=== PATIENT | female | born 1965 | race Caucasian/White ===

== ENCOUNTER 2020-08-22 07:45 | Emergency (ER) | payer OTHER, SELFPAY ==
[2020-08-22 07:57] VITALS: BP 142/88; PULSE 98; RESP 18; TEMP 36.9; O2SAT 97; BMI 29.5
--- NOTE | 2020-08-22 07:59 | ED_ITS ---
HPI - Extremity Problem General Chief complaint: Extremity Injury, Upper Stated complaint: fell arm pain Time Seen by Provider: 08/22/20 07:57 Source: patient Mode of arrival: ambulatory Limitations: no limitations History of Present Illness HPI Narrative: 54 years old female fell on Sunday at school sustained right upper extremity injury. She is complaining of right forearm pain. Denies LOC, denies neck pain denies head injury, no chest or abdominal complaints. She is fully ambulatory to the emergency department Complaint: extremity pain Onset (ago): day(s) (4) Pain Consistency: constant Location: right and upper extremity Severity scale (1-10): 4 Quality: dull Radiation: none Relieving factors: nothing Exacerbating factors: range of motion Related Data Home Medications Medication Instructions Recorded Confirmed Fioricet 08/22/20 propranolol 08/22/20 Allergies Allergy/AdvReac Type Severity Reaction Status Date / Time Penicillins Allergy Intermediate RASH Unverified 07/29/20 17:33 penicillin V Allergy Unknown rash Unverified 09/18/19 00:00 Review of Systems Review of Systems: Yes all other systems are reviewed and are negative Cardiovascular: Cardiovascular: Denies chest pain Musculoskeletal: Musculoskeletal: Denies abnormal gait Neurologic: Reports system reviewed and no additional complaints, except as documented and Denies abnormal gait PMFSH Past Medical History Medical History Migraine Surgical History Hx of tonsillectomy Social History Social History Alcohol intake: never Smoking Status: Never smoker Use of substances other than those prescribed or required for medical reasons: No Advance Directives: No Advance Directives Information Provided: No Physical Exam Vital Signs: Vital Signs: Vital Signs Temp Pulse Resp BP Pulse Ox 08/22/20 08:06 98.5 F 98 18 142/88 H 97 08/22/20 07:57 98.5 F 98 18 142/88 H 97 Body Mass Index 29.5 Const: Other: the patient appear well she is not in acute distress HENMT: Other: head eyes nose mouth throat examination is without normal limit Neck: Other: neck is supple she has no cervical tenderness Chest: Other: lungs are clear during auscultation Resp: Effort & Inspection: normal respiratory effort Cardio: Other: regular rate and rhythm a GI: Other: abdomen is soft nontender no peritoneal signs Skin: Other: skin no rash no laceration Neuro: Other: she is awake alert oriented x3 her gait is normal Extrem: Other: examination shows a tenderness in the right mid forearm, there is no deformity, there is no hematoma, there is pain during pronation and supination of the right forearm. 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 COMPARISON: None TECHNIQUE: AP and lateral views of the right forearm were obtained. FINDINGS: The bones and soft tissues are normal. No fracture. Imaged portions of the elbow and wrist are unremarkable. IMPRESSION: No radiographic evidence of acute posttraumatic changes identified within the right forearm. Discharge Plan Discharge Clinical Impression: Contusion Qualifiers: Encounter type: initial encounter Contusion area: forearm Laterality: right Qualified Code(s): S50.11XA - Contusion of right forearm, initial encounter Patient Disposition: Home, Self-Care Instructions: Contusion in Adults (ED) Additional Instructions: please follow-up with your primary care physician the x-ray of the forearm was negative, use anti-inflammatory such as naproxen twice a day Prescriptions: No Action Fioricet RF: 0 propranolol RF: 0 Referrals: Roberto Chaudhary MD, DO [Primary Care Provider] - 2 days
[2020-08-22 08:06] VITALS: BP 142/88; PULSE 98; RESP 18; TEMP 36.9; O2SAT 97
[2020-08-22] MEDS: NaPROXEN 500 MG TABLET PO (08:49)
== END 2020-08-22 09:07 | disposition home or self-care (01) ==
PROVIDERS: Emergency Provider Emergency Medicine; PCP Internal Medicine
DX: S50.11XA Contusion of right forearm, initial encounter (principal); W01.0XXA Fall on same level from slipping, tripping and stumbling without subsequent striking against object, initial encounter; Y93.9 Activity, unspecified; Y92.219 Unspecified school as the place of occurrence of the external cause; Y99.9 Unspecified external cause status
CPT/HCPCS: 73090; 99283; 99284

== ENCOUNTER 2020-10-19 16:07 | Outpatient (REF) | payer BC, SELFPAY | END 2020-10-19 16:08 | disposition home or self-care (01) | LOC: HO.LAB 16:07 | PROVIDERS: Visit Provider Internal Medicine | DX: Z20.828 Contact with and (suspected) exposure to other viral communicable diseases (principal) | CPT/HCPCS: C9803; U0003 ==

== ENCOUNTER 2020-11-13 08:27 | Outpatient (REF) | payer BC, SELFPAY ==
--- NOTE | 2020-11-13 08:31 | MM_ITS ---
EXAMINATION: MM SCREENING DIGITAL BREAST TOMOSYNTHESIS, BILATERAL CLINICAL INFORMATION: Screening. Asymptomatic. Family history breast cancer, aunt. No personal history breast surgery. The lifetime risk of breast cancer based on the Tyrer-Cuzick Model is 16%. COMPARISON: Mammography: 09/10/2019, 07/24/2018, 06/13/2017. TECHNIQUE: Digital breast tomosynthesis is performed in both the craniocaudal and mediolateral oblique views along with computer-aided detection (CAD). Synthesized 2D images are generated from the tomosynthesis. FINDINGS: There are scattered areas of fibroglandular density (ACR BI-RADS breast composition Category b). There is asymmetry of the breast, right larger, similar to prior studies. Retroareolar circumscribed nodule on right is decreased in size. There is no interval mass or architectural abnormality or abnormal calcifications. No significant changes. MM/MM tomosynthesis screening BI IMPRESSION: 1. No significant changes from prior studies. 2. Right circumscribed retroareolar nodule decreased in size. ASSESSMENT: BI-RADS 2: Benign RECOMMENDATION: Routine annual mammography screening. This patient's information was entered into a reminder system with a target due date for their next mammogram.
== END 2020-11-13 08:28 | disposition home or self-care (01) ==
LOC: HO.MAMMO 08:27
PROVIDERS: PCP Internal Medicine; Visit Provider Internal Medicine
DX: Z12.31 Encounter for screening mammogram for malignant neoplasm of breast (principal)
CPT/HCPCS: 77063; 77067

== ENCOUNTER 2021-02-05 06:49 | Outpatient (REF) | payer BC, SELFPAY ==
--- NOTE | ~2021-02-05 | XR_ITS ---
EXAMINATION: XR CHEST CLINICAL INFORMATION: Supraclavicular lymphadenopathy COMPARISON: Previous chest x-rays and chest CTA August 2019 TECHNIQUE: 2 views of the chest were obtained. FINDINGS: The cardiac and mediastinal contours are normal. The lungs are clear. There is no pleural effusion or pneumothorax. Bony structures are unremarkable. XR/XR chest 2V IMPRESSION: Unremarkable exam.
[2021-02-05 07:23] LABS: MANUAL DIFF FLAG NO
[2021-02-05 07:28] LABS: Basophils Absolute Auto 0.1 X10*3/uL (0.0-0.2); Basophils Percent Auto 0.7 % (0-2); Eosinophils Absolute Auto 0.5 X10*3/uL (0.0-0.4); Eosinophils Percent Auto 6.9 % (0-4); Hematocrit 41.7 % (37-47); Hemoglobin 13.3 g/dl (12.0-16.0); Imm Gran Abs Auto 0.02 X10*3/uL (0.00-0.03); Imm Gran Pct Auto 0.3 % (0.0-0.4); Lymphocytes Absolute Auto 3.6 X10*3/uL (1.2-4.9); Lymphocytes Percent Auto 52.1 % (20-40); Mean Corpuscular HGB Conc 31.9 g/dl (31.0-35.0); Mean Corpuscular Hemoglobin 28.2 pg (27.0-33.0); Mean Corpuscular Volume 88.5 fL (80-98); Mean Platelet Volume 9.7 fL (9.4-12.3); Monocytes Absolute Auto 0.5 X10*3/uL (0.1-1.2); Monocytes Percent Auto 6.7 % (2-11); Neutrophils Absolute Auto 2.3 X10*3/uL (2.0-8.3); Neutrophils Percent Auto 33.3 % (45-73); Platelet Count 252 X10*3/uL (160-400); Red Blood Count 4.71 X10*6/uL (4.20-5.50); Red Cell Distribution Width 12.5 % (11.0-16.0); White Blood Count 6.9 X10*3/uL (4.8-10.8)
[2021-02-05 07:56] LABS: Alanine Aminotransferase 12 U/L (0-31); Albumin Level 4.4 g/dL (3.5-5.0); Alkaline Phosphatase 103 U/L (39-117); Anion Gap 13 (12-20); Aspartate Amino Transferase 16 U/L (5-31); Bilirubin Total 0.5 mg/dL (0.0-1.0); Blood Urea Nitrogen 18 mg/dL (9-16); C Reactive Protein 0.05 mg/dL (< or = 0.50); Calcium 9.2 mg/dL (8.4-10.2); Carbon Dioxide 29 mmol/L (22-29); Chloride 106 mmol/L (96-108); Estimated Glomerular Filt Rate > 60; Glucose Random 104 mg/dL (60-115); Potassium 4.3 mmol/L (3.3-5.1); Sodium 144 mmol/L (135-145); Total Protein 7.2 g/dL (6.5-8.0)
[2021-02-05 08:58] LABS: Erythrocyte Sedimentation Rate 6 MM/HR (0-20)
== END 2021-02-05 06:50 | disposition home or self-care (01) ==
LOC: HO.LAB 06:49
PROVIDERS: PCP Internal Medicine; Visit Provider Internal Medicine
DX: R59.0 Localized enlarged lymph nodes (principal)
CPT/HCPCS: 36415; 71046; 80053; 85025; 85652; 86140

== ENCOUNTER 2021-03-16 13:31 | Outpatient (REF) | payer BC, SELFPAY ==
[2021-03-19 05:56] LABS: HPV mRNA E6/E7 rflx Not Detected (Not Detected)
== END 2021-03-16 13:32 | disposition home or self-care (01) ==
LOC: HO.LAB 13:31
PROVIDERS: PCP Internal Medicine; Visit Provider Obstetrics & Gynecology
DX: Z12.4 Encounter for screening for malignant neoplasm of cervix (principal); Z11.51 Encounter for screening for human papillomavirus (HPV); N95.0 Postmenopausal bleeding
CPT/HCPCS: 87624; 88142

== ENCOUNTER 2021-03-28 15:36 | Outpatient (REF) | payer BC, SELFPAY ==
--- NOTE | ~2021-03-28 | US_ITS ---
EXAMINATION: PELVIC ULTRASOUND CLINICAL INFORMATION: Postmenopausal bleeding COMPARISON: None TECHNIQUE: Transabdominal and transvaginal pelvic ultrasound was performed. Transvaginal exam was performed for better visualization of the uterus and ovaries. FINDINGS: The uterus is retroverted and measures 6.1 x 3.4 x 4.5 cm in dimension. There is a 0.7 x 0.5 x 0.9 cm hypoechoic lesion in the right anterior uterine body suggestive of a small fibroid. The endometrium is difficult to visualize. The endometrium appears thickened for postmenopausal patient measuring 9 mm. The ovaries are normal-appearing. The right ovary measures 2 x 0.8 x 1.4 cm and the left ovary measures 1.7 x 1.3 x 0.7 cm. There is no fluid in the pelvis. US/US transvaginal IMPRESSION: Thickened endometrium measuring 0.9 cm. Small subcentimeter uterine fibroid.
--- NOTE | ~2021-03-28 | US_ITS ---
EXAMINATION: PELVIC ULTRASOUND CLINICAL INFORMATION: Postmenopausal bleeding COMPARISON: None TECHNIQUE: Transabdominal and transvaginal pelvic ultrasound was performed. Transvaginal exam was performed for better visualization of the uterus and ovaries. FINDINGS: The uterus is retroverted and measures 6.1 x 3.4 x 4.5 cm in dimension. There is a 0.7 x 0.5 x 0.9 cm hypoechoic lesion in the right anterior uterine body suggestive of a small fibroid. The endometrium is difficult to visualize. The endometrium appears thickened for postmenopausal patient measuring 9 mm. The ovaries are normal-appearing. The right ovary measures 2 x 0.8 x 1.4 cm and the left ovary measures 1.7 x 1.3 x 0.7 cm. There is no fluid in the pelvis. US/US pelvic complete IMPRESSION: Thickened endometrium measuring 0.9 cm. Small subcentimeter uterine fibroid.
== END 2021-03-28 15:37 | disposition home or self-care (01) ==
LOC: HO.US 15:36
PROVIDERS: Visit Provider Obstetrics & Gynecology
DX: N95.0 Postmenopausal bleeding (principal)
CPT/HCPCS: 76830; 76856

== ENCOUNTER → 2021-04-12 12:02 | Outpatient (BNVA) | payer BC, SELFPAY | PROVIDERS: PCP Internal Medicine; Visit Provider Obstetrics & Gynecology ==

== ENCOUNTER 2021-04-19 08:40 | Outpatient (REF) | payer BC, SELFPAY | END 2021-04-19 08:41 | disposition home or self-care (01) | LOC: HO.LAB 08:40 | PROVIDERS: PCP Internal Medicine; Visit Provider Obstetrics & Gynecology | DX: N95.0 Postmenopausal bleeding (principal) | CPT/HCPCS: 58100; 88305 ==

== ENCOUNTER → 2021-05-05 12:36 | Outpatient (BNVA) | payer BC, SELFPAY | PROVIDERS: PCP Internal Medicine; Visit Provider Obstetrics & Gynecology ==

== ENCOUNTER → 2021-05-06 08:51 | Outpatient (BNVA) | payer BC, SELFPAY | PROVIDERS: PCP Internal Medicine; Referring Provider Internal Medicine; Visit Provider Surgery ==

== ENCOUNTER 2021-05-12 13:04 | Outpatient (REF) | payer BC, SELFPAY ==
--- NOTE | ~2021-05-12 | US_ITS ---
EXAMINATION: US SOFT TISSUE NECK CLINICAL INFORMATION: Benign lipomatous neoplasm of skin and subcutaneous. COMPARISON: CTA of the chest August 2019 and chest x-ray January 2021 TECHNIQUE: Ultrasound of the right and left clavicle soft tissues is performed with high- frequency tiwari-scale imaging and color Doppler. FINDINGS: There is symmetric appearing increased hypoechoic soft tissue seen in the area of palpable abnormality over the clavicles. A discrete soft tissue mass is not appreciated. No fluid collection is seen. There are 3 lymph nodes seen adjacent to the left clavicle. These are normal in size and demonstrate normal ultrasound morphology and flow. This measures 0.8 x 0.3 x 0.9 cm, 0.7 x 0.6 x 1 cm and 0.5 x 0.5 x 0.5 cm. US/US soft tiss head and/or neck IMPRESSION: Increased hypoechoic soft tissue seen over both clavicles in the area of palpable abnormality. A discrete mass is not appreciated. There are small lymph nodes adjacent to the left clavicle.
== END 2021-05-12 13:05 | disposition home or self-care (01) ==
LOC: HO.HMGCX 13:04
PROVIDERS: PCP Internal Medicine; Visit Provider Surgery
DX: D17.1 Benign lipomatous neoplasm of skin and subcutaneous tissue of trunk (principal)
CPT/HCPCS: 76536

== ENCOUNTER 2021-06-17 12:55 | Outpatient (REF) | payer BC, SELFPAY ==
[2021-06-18 17:12] LABS: Mumps Virus IgG Antibody <9.00 AU/mL; Rubella IgM Antibody <20.00 AU/mL
[2021-06-20 03:38] LABS: HBS Num1 0.12 mIU/mL (0-7.99); ~Hepatitis B Surface Antibody NONREACTIVE (Nonreactive)
== END 2021-06-17 12:56 | disposition home or self-care (01) ==
LOC: HO.HMGCLDS 12:55
PROVIDERS: PCP Internal Medicine; Visit Provider Internal Medicine
DX: Z01.84 Encounter for antibody response examination (principal); Z28.3 Underimmunization status
CPT/HCPCS: 36415; 86706; 86735; 86762; 86765; 86787

== ENCOUNTER 2021-11-28 16:07 | Outpatient (REF) | payer BC, SELFPAY ==
--- NOTE | ~2021-11-28 | MM_ITS ---
EXAMINATION: MM SCREENING DIGITAL BREAST TOMOSYNTHESIS, BILATERAL CLINICAL INFORMATION: Screening. Asymptomatic. The lifetime risk of breast cancer based on the Tyrer-Cuzick Model is 11%. COMPARISON: Mammography: 11/13/2020, 09/10/2019, 07/24/2018 TECHNIQUE: Digital breast tomosynthesis is performed in both the craniocaudal and mediolateral oblique views along with computer-aided detection (CAD). Synthesized 2D images are generated from the tomosynthesis. FINDINGS: There are scattered areas of fibroglandular density (ACR BI-RADS breast composition Category b). Breast tissue composition borders on predominantly fatty. Background stromal and fibroglandular markings are stable. Small circumscribed right retroareolar nodule is stable to decreased. There is no significant mass or architectural abnormality or developing density. No abnormal calcifications. No axillary adenopathy. Skin contours are smooth. MM/MM tomosynthesis screening BI IMPRESSION: No mammographic evidence of malignancy. ASSESSMENT: BI-RADS 2: Benign RECOMMENDATION: Routine annual mammography screening. This patient's information was entered into a reminder system with a target due date for their next mammogram.
== END 2021-11-28 16:08 | disposition home or self-care (01) ==
LOC: HO.MAMMO 16:07
PROVIDERS: PCP Internal Medicine; Visit Provider Internal Medicine
DX: Z12.31 Encounter for screening mammogram for malignant neoplasm of breast (principal)
CPT/HCPCS: 77063; 77067

== ENCOUNTER 2022-12-05 15:40 | Outpatient (REF) | payer OTHER, SELFPAY ==
--- NOTE | ~2022-12-05 | MM_ITS ---
EXAMINATION: MM SCREENING DIGITAL BREAST TOMOSYNTHESIS, BILATERAL CLINICAL INFORMATION: Screening. Asymptomatic. The lifetime risk of breast cancer based on the Tyrer-Cuzick Model is 8.9%. COMPARISON: Mammography: November 28, 2021 and studies dating back to May 16, 2016 TECHNIQUE: Digital breast tomosynthesis is performed in both the craniocaudal and mediolateral oblique views along with computer-aided detection (CAD). Synthesized 2D images are generated from the tomosynthesis. FINDINGS: The breasts are almost entirely fatty (ACR BI-RADS breast composition Category a). There are no significant masses, abnormal calcifications, or other abnormalities. MM/MM tomosynthesis screening BI IMPRESSION: No significant changes from prior exam. ASSESSMENT: BI-RADS 1: Negative RECOMMENDATION: Routine annual mammography screening. This patient's information was entered into a reminder system with a target due date for their next mammogram.
== END 2022-12-05 15:41 | disposition home or self-care (01) ==
LOC: HO.MAMMO 15:40
PROVIDERS: PCP Internal Medicine; Visit Provider Internal Medicine
DX: Z12.31 Encounter for screening mammogram for malignant neoplasm of breast (principal)
CPT/HCPCS: 77063; 77067

== ENCOUNTER 2023-09-12 11:28 | Outpatient (REF) | payer OTHER, SELFPAY ==
--- NOTE | ~2023-09-12 | XR_ITS ---
EXAMINATION: XR CHEST CLINICAL INFORMATION: Cough COMPARISON: Chest radiograph from 08/22/2019 TECHNIQUE: 2 views of the chest were obtained. FINDINGS: Atelectatic changes along the right medial lung base. No pneumothorax. Trachea is midline. Cardiac mediastinal silhouette is not enlarged. No large pleural effusion. Osseous structures are intact. Soft tissues are unremarkable. XR/XR chest 2V IMPRESSION: Atelectatic changes along the right medial lung base.
[2023-09-12 13:10] LABS: MANUAL DIFF FLAG NO
[2023-09-12 13:21] LABS: Basophils Absolute Auto 0.1 X10*3/uL (0.0-0.2); Basophils Percent Auto 0.5 % (0-2); Eosinophils Absolute Auto 0.5 X10*3/uL (0.0-0.4); Hematocrit 41.8 % (37.0-47.0); Hemoglobin 13.8 g/dl (12.0-16.0); Imm Gran Abs Auto 0.04 X10*3/uL (0.00-0.03); Imm Gran Pct Auto 0.4 % (0.0-0.4); Lymphocytes Absolute Auto 4.3 X10*3/uL (1.2-4.9); Lymphocytes Percent Auto 47.6 % (20-40); Mean Corpuscular Hemoglobin 28.2 pg (27.0-33.0); Mean Corpuscular Volume 85.5 fL (80.0-98.0); Mean Platelet Volume 9.6 fL (9.4-12.3); Monocytes Absolute Auto 0.5 X10*3/uL (0.1-1.2); Monocytes Percent Auto 5.5 % (2-11); Neutrophils Absolute Auto 3.7 x10*3/uL (2.0-8.3); Platelet Count 269 X10*3/uL (160-400); Red Blood Count 4.89 X10*6/uL (4.20-5.50); Red Cell Distribution Width 12.8 % (11.0-16.0); White Blood Count 9.1 X10*3/uL (4.8-10.8)
[2023-09-12 13:38] LABS: Alanine Aminotransferase 12 U/L (0-31); Albumin Level 4.4 g/dL (3.5-5.0); Alkaline Phosphatase 90 U/L (39-117); Anion Gap 12 (12-20); Aspartate Amino Transferase 15 U/L (5-31); Bilirubin Total 0.4 mg/dL (0.0-1.0); Blood Urea Nitrogen 14 mg/dL (9-16); C Reactive Protein < 0.10 mg/dL (< or = 0.50); Calcium 9.6 mg/dL (8.4-10.2); Carbon Dioxide 27 mmol/L (22-29); Chloride 104 mmol/L (96-108); Estimated Glomerular Filt Rate > 60; Glucose Random 103 mg/dL (60-115); Potassium 3.9 mmol/L (3.3-5.1); Sodium 139 mmol/L (135-145); Total Protein 7.8 g/dL (6.5-8.0)
[2023-09-12 13:57] LABS: Erythrocyte Sedimentation Rate 7 MM/HR (0-20)
[2023-09-21 15:23] LABS: Pertussis Testing Negative
== END 2023-09-12 11:29 | disposition home or self-care (01) ==
LOC: HO.HMGCLDS 11:28
PROVIDERS: PCP Internal Medicine; Visit Provider Internal Medicine
DX: R05.2 Subacute cough (principal)
CPT/HCPCS: 36415; 71046; 80053; 85025; 85652; 86140

== ENCOUNTER 2023-11-19 13:59 | Outpatient (REF) | payer OTHER, SELFPAY ==
[2023-11-19 14:11] VITALS: PULSE 80; RESP 20; O2SAT 95
--- NOTE | 2023-11-19 15:33 | PFT_ITS ---
Indication: Cough Spirometry [FEV1 to FVC 69% pre bronchodilators and 76% post bronchodilator; FEV1 2.77 L which is 106% predicted; FVC 3.63 L which is 96% predicted. No significant response to bronchodilators noted. Maximum voluntary ventilation 88% predicted Lung Volumes [Total lung capacity 94% predicted] Diffusion Capacity [DLCO 105% predicted] Comparisons [none] Interpretation [There is a reversible obstructive ventilatory defect consistent with a diagnosis of hyper-reactive airways, likely asthma. No significant response to bronchodilators noted, although, there is significant small airways disease also consistent with a diagnosis of asthma. She has normal maximum voluntary ventilation. Lung volumes and diffusing capacity are both within normal limits.] MTDD
== END 2023-11-19 14:00 | disposition home or self-care (01) ==
LOC: HO.RESP 13:59
PROVIDERS: PCP Internal Medicine; Visit Provider Internal Medicine
DX: R06.2 Wheezing (principal)
CPT/HCPCS: 94640

== ENCOUNTER → 2023-11-19 15:33 | Outpatient (BNV) | payer OTHER, SELFPAY | PROVIDERS: PCP Internal Medicine; Visit Provider Hospitalist | DX: R05.2 Subacute cough (principal) | CPT/HCPCS: 94060; 94727; 94729 ==

== ENCOUNTER 2023-12-11 15:48 | Outpatient (REF) | payer OTHER, SELFPAY | END 2023-12-11 15:49 | disposition home or self-care (01) | LOC: HO.MAMMO 15:48 | PROVIDERS: PCP Internal Medicine; Visit Provider Internal Medicine | DX: Z12.31 Encounter for screening mammogram for malignant neoplasm of breast (principal) | CPT/HCPCS: 77063; 77067 ==

== ENCOUNTER → 2023-12-11 16:00 | Outpatient (BNV) | payer OTHER, SELFPAY | PROVIDERS: PCP Internal Medicine; Visit Provider Radiology Diagnostic Radiology | DX: Z12.31 Encounter for screening mammogram for malignant neoplasm of breast (principal) | CPT/HCPCS: 77063; 77067 ==

== ENCOUNTER 2024-06-14 09:46 | Outpatient (REF) | payer OTHER, SELFPAY ==
[2024-06-14 11:37] LABS: Blood Urea Nitrogen 16 mg/dL (9-16); Estimated Glomerular Filt Rate > 60
== END 2024-06-14 09:47 | disposition home or self-care (01) ==
LOC: HO.LAB 09:46
PROVIDERS: PCP Internal Medicine; Visit Provider Internal Medicine
DX: R59.0 Localized enlarged lymph nodes (principal)
CPT/HCPCS: 36415; 82565; 84520

== ENCOUNTER 2024-06-30 07:53 | Outpatient (REF) | payer OTHER, SELFPAY ==
--- NOTE | ~2024-06-30 | CT_ITS ---
EXAMINATION: CT CHEST WITH CONTRAST CLINICAL INFORMATION: Infraclavicular lymphadenopathy COMPARISON: 09/12/2023 chest radiograph, 08/22/2019 chest CTA TECHNIQUE: Multidetector volumetric CT imaging of the chest was obtained after the administration of 65 mL of Omnipaque 350 intravenous contrast without immediate adverse reactions. Axial MIP volume rendering provided. Sagittal and coronal reformatted images were obtained. This CT examination was performed using dose optimization techniques as appropriate, variously including the following: *Automated exposure control *Adjustment of mA and/or kV according to patient size (this includes techniques or standardized protocols for targeted exams where dose is matched to indication/reason for exam; i.e. 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 LUNGS: Trachea bronchi are patent. Mild centrilobular emphysema. Mild mosaic attenuation left lower lobe. Scattered mild atelectasis. No consolidations or groundglass opacities. Small left lower lobe granuloma, 4:35. No suspicious lung nodules. MEDIASTINUM/CHEST WALL: Partial visualization of left thyroid hypodensities. Calcification posterior to the tracheal bifurcation. No pathologic lymphadenopathy. Couple left subpectoral lymph nodes measuring 1.9 and 0.9 cm, coronal 5:42. 8 mm left infraclavicular lymph node, coronal 5:46. Asymmetry of the pectoralis minor muscles, left relatively smaller than right. HEART AND GREAT VESSELS: Heart is not enlarged. No pericardial effusion. Degree of coronary calcifications: Trace. Nonaneurysmal aorta. Nonenlarged pulmonary arteries. PLEURA: There is no pleural effusion. No pleural mass or thickening. AXILLA: Nonspecific lymph nodes. No lymphadenopathy. UPPER ABDOMEN: Diffuse hypodensity to the liver parenchyma. 5.8 cm left upper pole renal cyst. Too small to characterize probable right upper pole renal cyst. Diverticulosis. OSSEOUS STRUCTURES: Mild L1 compression deformity, seen on September [address]/CT chest w IV con IMPRESSION: Mild centrilobular emphysema and mild mosaic attenuation left lower lobe. No suspicious lung nodules. Incomplete evaluation of thyroid hypodensities. Thyroid ultrasound recommended. Left subpectoral and infraclavicular lymph nodes as described. Hepatic steatosis. Left upper pole renal cyst. Diverticulosis. Fleischner guidelines were followed. Electronically signed by: Guerda Garcia MD 07/22/2024 01:37 PM EDT
[2024-06-30] MEDS: iohexoL 350 MG/ML 100 ML INFUS..BTL 65 ML IV (08:44)
== END 2024-06-30 07:54 | disposition home or self-care (01) ==
LOC: HO.CT 07:53
PROVIDERS: PCP Internal Medicine; Visit Provider Internal Medicine
DX: R59.0 Localized enlarged lymph nodes (principal)
CPT/HCPCS: 71260; Q9967

== ENCOUNTER 2024-08-14 07:26 | Outpatient (REF) | payer BC, SELFPAY ==
--- NOTE | ~2024-08-14 | US_ITS ---
EXAMINATION: US THYROID CLINICAL INFORMATION: Thyroid cyst. COMPARISON: None available. TECHNIQUE: Linear transducer grayscale and color Doppler examination with attention to the region of the thyroid. FINDINGS: SIZE: Measurements of the thyroid lobes and nodules are given in sagittal, anteroposterior and transverse dimensions respectively. Right Thyroid Lobe: 4.8 x 1.4 x 1.4 cm, volume 4.9 mL. Parenchyma: The gland echotexture is homogeneous. Thyroid vascularity is normal. Left Thyroid Lobe: 5.3 x 1.5 x 1.7 cm, volume 7.0 mL. Parenchyma: The gland echotexture is homogeneous. Thyroid vascularity is increased. Isthmus: 0.4 cm in maximum AP dimension. Estimated total number of nodules greater than or equal to 1 cm: 1. Avionics Engineer nodules are described as follows: 1. Location: Left upper/mid pole. Size: 1.5 x 1.2 x 1.2 cm, volume 1.12 mL. Nodule characteristics: Composition: Mixed cystic and solid (1). Echogenicity: Cannot be determined (1). Shape: Taller than wide (3). Margins: Smooth (0). Echogenic Foci: None (0). ACR TI-RADS total points: 5 ACR TI-RADS category: 4 NODES: No lymphadenopathy is seen in the tissue surrounding the thyroid gland. US/US thyroid IMPRESSION: A 1.5 cm left TR 4 thyroid nodule meets criteria for biopsy. Fine-needle aspiration recommended. [facility]. [facility] staff will provide results to referring provider at this time. ACR TI-RADS RECOMMENDATION REFERENCE: Ultrasound-guided fine-needle aspiration, followup ultrasound, no further follow up. * TR1 (0 point) and TR2 (2 points): No FNA or follow up. * TR3 (3 points): FNA if more than or equal to 2.5 cm in maximum dimension, followup ultrasound in 1, 3 and 5 years if 1.5 to 2.4 cm in maximum dimension. * TR4 (4-6 points): FNA if more than or equal to 1.5 cm in maximum dimension, followup ultrasound in 1, 2, 3 and 5 years if 1 to 1.4 cm in maximum dimension. * TR5 (more than or equal to 7 points): FNA if more than or equal to 1 cm in maximum dimension, followup ultrasound every year for 5 years if 0.5 to 0.9 cm in maximum dimension. * TR3, TR4 or TR5 nodules that are below the size threshold for followup receive no follow up. Electronically signed by: Marla Eason MD 09/03/2024 09:24 AM EDT
== END 2024-08-14 07:27 | disposition home or self-care (01) ==
LOC: HO.US 07:26
PROVIDERS: PCP Internal Medicine; Visit Provider Internal Medicine
DX: E04.1 Nontoxic single thyroid nodule (principal)
CPT/HCPCS: 76536

== ENCOUNTER 2024-09-09 10:19 | Outpatient (REF) | payer BC, SELFPAY ==
[2024-09-09 10:46] LABS: MANUAL DIFF FLAG NO
[2024-09-09 11:21] LABS: Basophils Absolute Auto 0.1 X10*3/uL (0.0-0.2); Basophils Percent Auto 0.6 % (0-2); Eosinophils Absolute Auto 0.4 X10*3/uL (0.0-0.4); Eosinophils Percent Auto 4.8 % (0-4); Hematocrit 43.6 % (37.0-47.0); Hemoglobin 14.4 g/dl (12.0-16.0); Imm Gran Abs Auto 0.08 X10*3/uL (0.00-0.03); Lymphocytes Absolute Auto 4.3 X10*3/uL (1.2-4.9); Lymphocytes Percent Auto 53.5 % (20-40); Mean Corpuscular Hemoglobin 28.7 pg (27.0-33.0); Mean Corpuscular Volume 86.9 fL (80.0-98.0); Mean Platelet Volume 9.4 fL (9.4-12.3); Monocytes Absolute Auto 0.5 X10*3/uL (0.1-1.2); Monocytes Percent Auto 6.2 % (2-11); Neutrophils Absolute Auto 2.7 x10*3/uL (2.0-8.3); Neutrophils Percent Auto 33.9 % (45-73); Platelet Count 257 X10*3/uL (160-400); Red Blood Count 5.02 X10*6/uL (4.20-5.50); Red Cell Distribution Width 12.8 % (11.0-16.0); White Blood Count 7.9 X10*3/uL (4.8-10.8)
[2024-09-09 12:42] LABS: Alanine Aminotransferase 17 U/L (0-31); Albumin Level 4.3 g/dL (3.5-5.0); Alkaline Phosphatase 91 U/L (39-117); Anion Gap 13 (12-20); Aspartate Amino Transferase 24 U/L (5-31); Bilirubin Total 0.6 mg/dL (0.0-1.0); Blood Urea Nitrogen 13 mg/dL (9-16); Calcium 9.5 mg/dL (8.4-10.2); Carbon Dioxide 26 mmol/L (22-29); Chloride 107 mmol/L (96-108); Cholesterol 249 mg/dL (<200); Estimated Glomerular Filt Rate > 60; Glucose Fasting 98 mg/dL (60-99); HDL Cholesterol 65 mg/dL (>40); LDL Cholesterol Calculated 166 mg/dL (<100); Potassium 4.1 mmol/L (3.3-5.1); Sodium 142 mmol/L (135-145); Total Protein 7.4 g/dL (6.5-8.0); Triglycerides 92 mg/dL (<150)
[2024-09-09 13:09] LABS: Thyroid Stimulating Hormone 1.95 uIU/mL (0.32-4.0); Vitamin D 25-OH Total 32.3 ng/mL (>30)
== END 2024-09-09 10:20 | disposition home or self-care (01) ==
LOC: HO.LAB 10:19
PROVIDERS: PCP Internal Medicine; Visit Provider Internal Medicine
DX: Z00.00 Encounter for general adult medical examination without abnormal findings (principal)
CPT/HCPCS: 36415; 80053; 80061; 82306; 84443; 85025

== ENCOUNTER 2024-09-09 10:52 | Outpatient (AMB) | payer BC, SELFPAY ==
--- NOTE | 2024-09-09 10:53 | A.OFFVIS_ITS ---
Vital Signs 09/09/24 10:55 Height 5 ft 9 in Weight 214 lb 11.684 oz BMI 31.7 BP 128/82 Blood Pressure Location Lt brachial Position Sitting Pulse 76 Pulse Source Pulse Oximeter Intake Visit Reasons: Thyroid Nodule-conf Intake Note: Patient present today for Thyroid nodule follow up visit. Systems Requirements Planner Required: No Accompanied by: Self / Same As Patient Allergies Penicillins Allergy (Intermediate, Verified 09/09/24 10:57) RASH Medication List - Last Reconciled 09/09/24 by Heide Veliz MD No Known Home Meds HPI Comments Details: 58-year-old female coming in today for initial evaluation of solitary right-side d thyroid nodule. She had a CT chest in June 2024 which showed left-sided infraclavicular lymphadenopathy but also showed left-sided hypodensities in the thyroid. Hence ultrasound of the thyroid done. Ultrasound from August 2024 I reviewed the images myself which showed a solitary left upper/mid 1.5 cm thyroid nodule which is mixed cystic solid with mostly cystic component but taller than wide making it a TR 4 category nodule meeting criteria for FNA . Patient complains of heat intolerance, hot flashes. Feels tired. Has sleep apnea not on CPAP. Reports tiredness. Denies diarrhea or constipation, hair loss, palpitation, anxiety, weight changes, mood changes, low energy, changes in appearance of eyes or vision changes, tremors, increased diaphoresis or dry skin. ? Patient denies any pain on swallowing or voice changes or difficulty breathing. Sometimes has difficulty swallowing with big bites. Denies any fullness. Patient denies any history of childhood neck radiation. Denies having ever used lithium, amiodarone or biotin supplements. Patient denies any family history of thyroid cancer or thyroid disease. Review of systems Constitutional: no fevers, chills or weight loss HEENT: no changes in vision Cardiac: No chest pain, discomfort or palpitations. Pulmonary: No SOB GI:No abdominal pain, no nausea or vomiting, no anorexia, no blood in stool : no burning micturition, dysuria or increase in urinary frequency Physical exam General: sitting comfortably in no acute distress HEENT: normocephalic/atraumatic, moist oral mucosa Neck: supple, symmetrical, palpable 1 cm left-sided nodule , no dorsocervical or supraclavicular fat pads Cardiac: normal heart sounds Pulm: normal breath sounds B/L, no added breath sounds Abd: not distended, no tenderness Extremities: no edema, no signs of myxedema Neuro: AAO x3, Speech: normal, no facial droop, moving all 4 extremities Skin: no rash Laboratory Tests 12/14/18 08/22/19 07:40 17:07 TSH 3rd Generation 1.87 0.67 TSH from 09/09/2024 is pending US THYROID August 2024 CLINICAL INFORMATION: Thyroid cyst. COMPARISON: None available. TECHNIQUE: Linear transducer grayscale and color Doppler examination with attention to the region of the thyroid. FINDINGS: SIZE: Measurements of the thyroid lobes and nodules are given in sagittal, anteroposterior and transverse dimensions respectively. Right Thyroid Lobe: 4.8 x 1.4 x 1.4 cm, volume 4.9 mL. Parenchyma: The gland echotexture is homogeneous. Thyroid vascularity is normal. Left Thyroid Lobe: 5.3 x 1.5 x 1.7 cm, volume 7.0 mL. Parenchyma: The gland echotexture is homogeneous. Thyroid vascularity is increased. Isthmus: 0.4 cm in maximum AP dimension. Estimated total number of nodules greater than or equal to 1 cm: 1. Highway Maintenance Supervisor nodules are described as follows: 1. Location: Left upper/mid pole. Size: 1.5 x 1.2 x 1.2 cm, volume 1.12 mL. Nodule characteristics: Composition: Mixed cystic and solid (1). Echogenicity: Cannot be determined (1). Shape: Taller than wide (3). Margins: Smooth (0). Echogenic Foci: None (0). ACR TI-RADS total points: 5 ACR TI-RADS category: 4 NODES: No lymphadenopathy is seen in the tissue surrounding the thyroid gland. US/US thyroid IMPRESSION: A 1.5 cm left TR 4 thyroid nodule meets criteria for biopsy. Fine-needle aspiration recommended. [facility] Medical History (Updated 09/09/24 @ 11:34 by Heide Veliz MD) Solitary thyroid nodule YASMANY (obstructive sleep apnea) Obesity (BMI 30-39.9) Sleep apnea Migraine Surgical History Hx of tonsillectomy Family History Mother Colon cancer Father Colon cancer Social History Alcohol intake: current Alcohol intake frequency: holidays/special occasions only Patient Tobacco Use Status: Never used Tobacco Female Reproductive History Menstrual Age of Menarche: 14 Physical Exam Vital Signs: Last Vital Signs Pulse 76 09/09/24 10:55 BP 128/82 09/09/24 10:55 BMI result Body Mass Index 31.7 Assessment & Plan Assessment & Plan (1) Solitary thyroid nodule: Code(s): E04.1 - Nontoxic single thyroid nodule Category: Medical Plan: Patient with no family history of thyroid cancer with no personal history of head or neck radiation, who underwent thyroid ultrasound Ultrasound from August 2024 I reviewed the images myself which showed a solitary left upper/mid 1.5 cm thyroid nodule which is mixed cystic solid with mostly cystic component but taller than wide making it a TR 4 category nodule meeting criteria for FNA . I explained that it is common to have thyroid nodules. About 95% of the time these nodules are benign. However if the nodule is > 1 cm in size or suspicious on ultrasound then a fine need aspiration biopsy is recommended. We discussed that a FNAB involves 4-5 passes with a small gauge needle and material obtained is sent off for cytology.If the cytopathology is benign then the nodule will be followed annually with repeat ultrasounds. However if it is suspicious or malignant, we will need to discuss further management. Indeterminate cytology can be further investigated with repeat FNA, genetic testing or empiric lobectomy. Malignant cytology is managed with either lobectomy or total thyroidectomy. We discussed briefly that thyroid cancer is, in most patients, an indolent disease that does not affect mortality. Patient does have some hot flashes, is postmenopausal, however otherwise no significant symptoms of hypothyroidism or hyperthyroidism. TSH in the past in 2019 was unremarkable, had a TSH drawn today 09/09/2024 that is still in process. She does have intermittent dysphagia. Unlikely that is from her thyroid nodule given small size. We will arrange for FNA of the left mid 1.5 cm thyroid nodule at next available opening and patient will follow up with me in clinic thereafter for results and further decision making. Plan: -schedule for FNA of the left mid 1.5 cm thyroid nodule -and a follow up 1-2 weeks after to discuss results -follow up TSH level Plan I spent 45 minutes in reviewing the record, seeing the patient and documenting in the medical record. Orders: Orders US biopsy thyroid Today E04.1 - Nontoxic single thyroid nodule Patient Instructions: We will schedule you for a thyroid nodule biopsy and a follow up 1-2 weeks after to discuss results Coding Level of Care Code New Pt Level 4 (12550) Diagnoses Solitary thyroid nodule E04.1 Time Spent (min) 45
[2024-09-09 10:55] VITALS: BP 128/82; PULSE 76; BMI 31.7
== END 2024-09-09 11:46 | disposition home or self-care (01) ==
LOC: HO.ENCR 10:52
PROVIDERS: PCP Internal Medicine; Visit Provider Student in an Organized Health Care Education/Training Program
DX: E04.1 Nontoxic single thyroid nodule (principal)
CPT/HCPCS: 99204

== ENCOUNTER 2024-09-16 15:20 | Outpatient (AMB) | payer OTHER, SELFPAY ==
--- NOTE | 2024-09-16 15:23 | MHC.OFFVIS ---
Vital Signs 09/16/24 15:27 Height 5 ft 9 in Weight 212 lb 11.937 oz BMI 31.4 BP 128/78 Blood Pressure Location Rt brachial Position Sitting Pulse 78 Pulse Source Pulse Oximeter Pulse Oximetry (%) 97 Oxygen Delivery Method Room Air Intake Visit Reasons: COPD Pug Machine Operator Required: No Glass Driller: Glass Driller offered & declined Accompanied by: Self / Same As Patient Allergies Penicillins Allergy (Intermediate, Verified 09/16/24 16:32) RASH Medication List - Last Reconciled 09/16/24 by Tina Vergara MD No Known Home Meds Do you need a note to return to daycare/school/sports/work: No HPI HPI COPD: Details: THIS 56 YEARS OLD VERY PLEASANT FEMALE IS A KNOWN CASE OF MODERATE OBESITY AND OBSTRUCTIVE SLEEP APNEA FOR THE LAST MANY YEARS. WE HAVE A SLEEP STUDY FROM 2008 WHICH SHOWED MODERATELY SEVERE OBSTRUCTIVE SLEEP APNEA WITH TOTAL SLEEP TIME RDI 8.2 AND REM SLEEP RDI 40.3 OVER THE PAST MANY YEARS SHE HAS TRIED TO USE CPAP MASK, MOSTLY NASAL, EVEN WITH THE CHIN STRAP, BUT HAS NOT BEEN ABLE TO TOLERATE. SHE FEELS CLAUSTROPHOBIC WITH ANY FULL FACE OR EVEN NASAL MASK. PATIENT WANTED TO EXPLORE DIFFERENT TO MODALITIES OF TREATMENT ESPECIALLY, USE OF RENNY DENTAL DEVICE. FOR THIS IN MIND 81 IS SLEEP STUDY WAS DONE IN THE SLEEP LAB ON 10/06/2019. THIS STUDY AGAIN CONFIRMED THAT SHE HAD MODERATELY SEVERE OBSTRUCTIVE SLEEP APNEA WITH TOTAL SLEEP TIME AHI 25.7. AFTER THIS STUDY BECAUSE OF COVID CONDITIONS PATIENT LOST FOLLOW-UP FOR A WHILE, BACK IN 2021 SHE WAS EXPLORING THE POSSIBILITY OF GETTING AN RENNY DENTAL DEVICE. SHE CONTACTED [facility]LINE, WHO REQUESTED THE APPROPRIATE PAPERWORK WHICH WAS PROVIDED . SHE DID SEE A DENTIST WHO EXPLAINED ABOUT THE RENNY DENTAL DEVICE, AND SHE DID NOT LIKE THIS TREATMENT. ANYWAY SHE IS COMING TODAY AFTER A LONG PERIOD OF TIME TO DISCUSS ABOUT HER SLEEP APNEA ONCE AGAIN. SHE IS COMPLAINING THAT HER SLEEP IS VERY SUPERFICIAL INTERRUPTED BY AWAKENINGS MANY TIMES, AND SHE WAKES UP ON REFRESHED. SHE FEELS SLEEPY AND TIRED DURING THE WHOLE DAY . I SCREENED FOR EPWORTH SLEEPINESS SCALE. IT IS . SHE IS HERE TODAY TO EXPLORE OTHER POSSIBILITIES SUCH SURGICAL PROCEDURES OR INSPIRE. [facility] Medical History (Updated 09/16/24 @ 16:49 by Tina Vergara MD) Somnolence, daytime Retrognathia Solitary thyroid nodule YASMANY (obstructive sleep apnea) Obesity (BMI 30-39.9) Sleep apnea Migraine Surgical History Hx of tonsillectomy Family History Mother Colon cancer Father Colon cancer Social History Alcohol intake: current Alcohol intake frequency: holidays/special occasions only Patient Tobacco Use Status: Never used Tobacco Female Reproductive History Menstrual Age of Menarche: 14 Review of Systems Const All systems reviewed & are unremarkable except as noted in HPI and below Eyes Reports no additional complaints ENT Reports no additional complaints Card Denies chest pain, Denies irregular heart rhythm and Denies leg edema Resp Reports no additional complaints GI Reports no additional complaints Reports no additional complaints Musc Reports no additional complaints Skin/Breast Reports system reviewed and no additional complaints, except as documented Neuro Reports no additional complaints Psych Reports no additional complaints Endo Reports no additional complaints Physical Exam Const General: healthy appearing (EXCEPT FOR BEING OVERWEIGHT), comfortable, no acute distress, alert and awake Orientation/consciousness: patient oriented x3 HEENT Head: Yes normal to inspection General nose exam: No nasal polyps present and No nasal discharge present Face and sinus: Yes sinuses nontender Mouth: oropharynx abnormals (MODERATELY NARROW AND CROWDED, MALLAMPATI CLASS 3) Teeth and gingiva: other (RETROGANTHIA OF THE LOWER JAW) Throat: Yes posterior oropharynx normal Eyes General: appearance normal, both eyes and all related structures Neck Neck: Yes normal visual inspection, Yes no lymphadenopathy, Yes trachea midline and Yes no JVD Thyroid: Thyroid normal Chest Chest palpation & inspection: normal inspection of the chest, normal palpation of entire chest wall and no tenderness Resp Effort & Inspection: normal respiratory effort Auscultation: clear to auscultation bilaterally, no crackles and no wheezes Cardio Palpation: normal PMI Rate: regular rate Rhythm: regular rhythm Heart sounds: no gallops and no murmurs Peripheral pulses: Peripheral pulses 2+ throughout GI Palpation (GI): Soft to palpation, nontender, No hepatosplenomegaly present and no masses Auscultation: normal bowel sounds Back/Spine/Pelvis Thoracic/Lumbar Spine: thoracic and lumbar spine normal to inspection Skin General skin exam: no rashes or lesions noted Neuro General: patient oriented x3 and no focal motor deficits Cranial nerves: Yes CN's II-XII intact bilaterally Extrem General: Yes normal to inspection, Yes no clubbing, cyanosis or edema and Yes no calf tenderness Psych Appearance: grossly normal and well kempt Speech and movement: Normal speech and movement present Assessment & Plan Assessment & Plan (1) Obesity (BMI 30-39.9): Comment: PATIENT IS MODERATELY OBESE, WEIGHT HAS REMAINED STABLE OVER THE PAST FEW YEARS. Code(s): E66.9 - Obesity, unspecified Category: Medical Plan: SHE IS INSTRUCTED TO WATCH HER DIET DO REGULAR EXERCISE AND SEE IF SHE CAN LOSE ABOUT 15-20 LB OF WEIGHT (2) YASMANY (obstructive sleep apnea): Comment: PATIENT HAS LONG-STANDING MODERATELY SEVERE OBSTRUCTIVE SLEEP APNEA. IT IS PARTLY DUE TO BEING OVERWEIGHT AND PARTLY DUE TO RETROGANTHIA OF THE LOWER JAW. PATIENT IS INTOLERANT OF CPAP , FEELS CLAUSTROPHOBIC WITH ANY MASK ON HER FACE. SHE WAS ALSO NOT ABLE TO USE RENNY DENTAL DEVICE SHE WANTS TO EXPLORE OTHER POSSIBILITIES SUCH SURGICAL TREATMENT OR INSPIRE. Code(s): G47.33 - Obstructive sleep apnea (adult) (pediatric) Category: Medical Plan: HER LAST SLEEP STUDY WAS BACK IN 2019, SHE NEEDS TO HAVE AN UP TO DATE SLEEP STUDY TO ESTABLISH THE DIAGNOSIS AND PROCEED WITH OTHER MODES OF TREATMENT. I HAVE ORDERED A HOME-BASED SLEEP STUDY. (3) Retrognathia: Comment: PATIENT WAS ASKING ABOUT WHAT ARE THE REASONS FOR A SLEEP APNEA. I EXPLAINED TO HER ABOUT RETROGANTHIA OF THE LOWER JAW AND BEING OVERWEIGHT, Code(s): M26.19 - Other specified anomalies of jaw-cranial base relationship Category: Medical Plan: THERE IS NOT MUCH DO ABOUT THE RETROGANTHIA BUT SHE CAN STILL TRY TO LOSE SOME WEIGHT Orders: Orders RT home sleep study Today E66.9 - Obesity, unspecified, G47.33 - Obstructive sleep apnea (adult) (pediatric), R40.0 - Somnolence Coding Level of Care Code Est Pt Level 3 (95627) Diagnoses Obesity (BMI 30-39.9) E66.9 YASMANY (obstructive sleep apnea) G47.33 Retrognathia M26.19
[2024-09-16 15:27] VITALS: BP 128/78; PULSE 78; O2SAT 97; BMI 31.4
== END 2024-09-16 15:49 | disposition home or self-care (01) ==
LOC: HO.HPS 15:20
PROVIDERS: PCP Internal Medicine; Visit Provider Internal Medicine
DX: E66.9 Obesity, unspecified (principal); G47.33 Obstructive sleep apnea (adult) (pediatric); M26.19 Other specified anomalies of jaw-cranial base relationship
CPT/HCPCS: 99213

== ENCOUNTER → 2024-09-16 15:20 | Outpatient (BNVA) | payer OTHER, SELFPAY | PROVIDERS: PCP Internal Medicine; Visit Provider Internal Medicine ==

== ENCOUNTER 2024-09-17 08:51 | Outpatient (REF) | payer OTHER, SELFPAY ==
--- NOTE | 2024-09-17 09:33 | PM.PROC ---
Brief Operative Note Date of procedure: 09/17/24 Pre-op diagnosis: left mid 1.5 cm thyroid nodule FNA biopsy Procedure: THYROID FINE NEEDLE ASPIRATION PROCEDURE NOTE ? PROCEDURE PERFORMED: Ultrasound-guided FNA of thyroid nodule ? OPERATORS: Dr. Heide Veliz ? INDICATION: left mid 1.5 cm thyroid nodule ; FNA performed to assess for malignancy ? DESCRIPTION OF PROCEDURE: The indications for FNA (to assess for malignancy) were reviewed with the patient in detail. Potential complications (e.g., bleeding, infection, damage to local structures, absence of clear diagnosis after FNA) were reviewed. Alternatives to FNA including conservative observation or surgery were described. The patient understood and agreed to proceed. This was documented by the signing of the written informed consent form. A time-out was performed to confirm the patient's identity and the site of planned FNA. The nodule of interest was identified using ultrasound (14 MHz linear array probe). The site of FNA was then draped in the usual fashion and carefully cleaned and prepared using alcohol swabs. The skin at the previously-identified site of needle insertion was iced and sprayed with numbing spray. Under ultrasound guidance, _5_ passes were performed using a 1.5-inch, 25-gauge needle, and sample was obtained via capillary action. The needle tip was clearly visualized to be within the nodule at the time of sampling for _3_ of _5_ passes The patient tolerated the procedure well. There were no immediate complications. A small adhesive bandage was applied, and the patient was advised to take acetaminophen (rather than NSAIDs) for any discomfort and to report any signs of inflammation/infection or marked swelling. IMPRESSION: Technically successful ultrasound-guided fine needle aspiration of left mid 1.5 cm thyroid nodule. PLAN: The patient was advised that I will provide follow-up regarding the cytology result and any subsequent plans. Heide Veliz MD Endocrinology Attending Condition: stable Disposition: same day
== END 2024-09-17 08:52 | disposition home or self-care (01) ==
LOC: HO.US 08:51
PROVIDERS: PCP Internal Medicine; Visit Provider Student in an Organized Health Care Education/Training Program
DX: E04.1 Nontoxic single thyroid nodule (principal)
CPT/HCPCS: 10005; 88173; 88305

== ENCOUNTER → 2024-09-17 08:51 | Outpatient (BNV) | payer OTHER, SELFPAY | PROVIDERS: PCP Internal Medicine; Visit Provider Student in an Organized Health Care Education/Training Program | DX: E04.1 Nontoxic single thyroid nodule (principal) | CPT/HCPCS: 10005 ==

== ENCOUNTER 2024-10-08 13:19 | Outpatient (AMB) | payer BC, SELFPAY ==
[2024-10-08 13:20] VITALS: BP 126/82; PULSE 57; BMI 32.2
--- NOTE | 2024-10-08 13:20 | A.OFFVIS_ITS ---
Vital Signs 3 10/08/24 13:20 Height 5 ft 9 in Weight 218 lb 4.122 oz BMI 32.2 BP 126/82 Blood Pressure Location Lt brachial Position Sitting Pulse 57 Pulse Source Pulse Oximeter Intake Visit Reasons: Biopsy f/u-confirmed Intake Note: Patient present today for biopsy follow up visit. Rn Surgical Pcu Required: No Accompanied by: Self / Same As Patient Allergies Penicillins Allergy (Intermediate, Verified 10/08/24 13:25) RASH HPI Comments Details: 58-year-old female coming in today for follow up of solitary right-sided thyroid nodule. She is here today to discuss biopsy results. She had a CT chest in June 2024 which showed left-sided infraclavicular lymphadenopathy but also showed left-sided hypodensities in the thyroid. Hence ultrasound of the thyroid done. Ultrasound from August 2024 I reviewed the images myself which showed a solitary left upper/mid 1.5 cm thyroid nodule which is mixed cystic solid with mostly cystic component but taller than wide making it a TR 4 category nodule meeting criteria for FNA . Interval history Underwent FNA biopsy of the left upper/midpole 1.5 cm nodule on 09/17/2024 which came back as nondiagnostic [place] category 1. TSH from 09/09/2024 within normal limits. Patient complains of heat intolerance, hot flashes. Feels tired. Has sleep apnea not on CPAP. Reports tiredness. Denies diarrhea or constipation, hair loss, palpitation, anxiety, weight changes, mood changes, low energy, changes in appearance of eyes or vision changes, tremors, increased diaphoresis or dry skin. ? Patient denies any pain on swallowing or voice changes or difficulty breathing. Sometimes has difficulty swallowing with big bites. Denies any fullness. Patient denies any history of childhood neck radiation. Denies having ever used lithium, amiodarone or biotin supplements. Patient denies any family history of thyroid cancer or thyroid disease. Review of systems Constitutional: no fevers, chills or weight loss HEENT: no changes in vision Cardiac: No chest pain, discomfort or palpitations. Pulmonary: No SOB GI:No abdominal pain, no nausea or vomiting, no anorexia, no blood in stool : no burning micturition, dysuria or increase in urinary frequency Physical exam General: sitting comfortably in no acute distress HEENT: normocephalic/atraumatic, moist oral mucosa Neck: supple, symmetrical, palpable 1 cm left-sided nodule , no dorsocervical or supraclavicular fat pads Cardiac: normal heart sounds Pulm: normal breath sounds B/L, no added breath sounds Abd: not distended, no tenderness Extremities: no edema, no signs of myxedema Neuro: AAO x3, Speech: normal, no facial droop, moving all 4 extremities Skin: no rash Laboratory Tests 09/09/24 10:43 TSH 1.95 Laboratory Tests 12/14/18 08/22/19 07:40 17:07 TSH 3rd Generation 1.87 0.67 US THYROID August 2024 CLINICAL INFORMATION: Thyroid cyst. COMPARISON: None available. TECHNIQUE: Linear transducer grayscale and color Doppler examination with attention to the region of the thyroid. FINDINGS: SIZE: Measurements of the thyroid lobes and nodules are given in sagittal, anteroposterior and transverse dimensions respectively. Right Thyroid Lobe: 4.8 x 1.4 x 1.4 cm, volume 4.9 mL. Parenchyma: The gland echotexture is homogeneous. Thyroid vascularity is normal. Left Thyroid Lobe: 5.3 x 1.5 x 1.7 cm, volume 7.0 mL. Parenchyma: The gland echotexture is homogeneous. Thyroid vascularity is increased. Isthmus: 0.4 cm in maximum AP dimension. Estimated total number of nodules greater than or equal to 1 cm: 1. Manager Manufacturing nodules are described as follows: 1. Location: Left upper/mid pole. Size: 1.5 x 1.2 x 1.2 cm, volume 1.12 mL. Nodule characteristics: Composition: Mixed cystic and solid (1). Echogenicity: Cannot be determined (1). Shape: Taller than wide (3). Margins: Smooth (0). Echogenic Foci: None (0). ACR TI-RADS total points: 5 ACR TI-RADS category: 4 NODES: No lymphadenopathy is seen in the tissue surrounding the thyroid gland. US/US thyroid IMPRESSION: A 1.5 cm left TR 4 thyroid nodule meets criteria for biopsy. Fine-needle aspiration recommended. [facility] Medical History (Updated 09/16/24 @ 16:49 by Tina Vergara MD) Somnolence, daytime Retrognathia Solitary thyroid nodule YASMANY (obstructive sleep apnea) Obesity (BMI 30-39.9) Sleep apnea Migraine Surgical History Hx of tonsillectomy Family History Mother Colon cancer Father Colon cancer Social History Alcohol intake: current Alcohol intake frequency: holidays/special occasions only Patient Tobacco Use Status: Never used Tobacco Female Reproductive History Menstrual Age of Menarche: 14 Assessment & Plan Assessment & Plan (1) Solitary thyroid nodule: Code(s): E04.1 - Nontoxic single thyroid nodule Category: Medical Plan: Patient with no family history of thyroid cancer with no personal history of head or neck radiation, who underwent thyroid ultrasound Ultrasound from August 2024 I reviewed the images myself which showed a solitary left upper/mid 1.5 cm thyroid nodule which is mixed cystic solid with mostly cystic component but taller than wide making it a TR 4 category nodule meeting criteria for FNA . Underwent FNA biopsy of the left upper/midpole 1.5 cm nodule on 09/17/2024 which came back as nondiagnostic [place] category 1. These have a 5-10% chance of malignancy. TSH from 09/09/2024 within normal limits. Patient does have some hot flashes, is postmenopausal, however otherwise no significant symptoms of hypothyroidism or hyperthyroidism. TSH normal from 09/09/2024. She does have intermittent dysphagia. Unlikely that is from her thyroid nodule given small size. We will arrange for repeat FNA of the left mid 1.5 cm thyroid nodule end of Nov 2024 and patient will follow up with me in clinic thereafter for results and further decision making. Plan: -schedule for repeat FNA of the left mid 1.5 cm thyroid nodule -and a follow up 1-2 weeks after to discuss results Plan see above Orders: Orders 2 US biopsy thyroid 12/10/24 E04.1 - Nontoxic single thyroid nodule Patient Instructions: We will schedule you for repeat biopsy of the left thyroid nodule. Coding Level of Care Code Est Pt Level 3 (12278) Diagnoses Solitary thyroid nodule E04.1
== END 2024-10-08 13:39 | disposition home or self-care (01) ==
PROVIDERS: PCP Internal Medicine; Visit Provider Student in an Organized Health Care Education/Training Program
DX: E04.1 Nontoxic single thyroid nodule (principal)
CPT/HCPCS: 99213

== ENCOUNTER → 2024-10-08 13:19 | Outpatient (BNVA) | payer BC, SELFPAY | PROVIDERS: PCP Internal Medicine; Visit Provider Student in an Organized Health Care Education/Training Program ==

== ENCOUNTER 2024-10-27 09:06 | Outpatient (REF) | payer BC, SELFPAY ==
--- OUTSIDE RECORDS SUMMARY | 2024-10-28 09:15 | XMS_ITS ---
Author Organization HUMPHREY Berrios DOP Address [address] [place] [id number] Care Team Providers Care Systems Auditor Name Role Phone Roberto Chaudhary Primary Care Provider [phone] Po Sav PILLAI Unavailable Unavailable REASON FOR VISIT Needs call back from MD Encounters Encounter Location Date Provider Diagnosis Roberto Chaudhary DO, FACP [address] [place] [phone] 09/23/2024 Roberto Chaudhary PLAN OF TREATMENT Next Appt Details Provider Name:Roberto marcus, 09/09/2025 09:00:00 AM, [address] [place] [address], [id number],
--- OUTSIDE RECORDS SUMMARY | 2024-10-28 09:15 | XMS_ITS ---
Author Organization Roberto Chaudhary DO FACP Address [address] [place], [place] [phone] Care Team Providers Care Brain Wave Technician Name Role Phone Jet Roberto Primary Care Provider Po Sav PILLAI Unavailable Unavailable ALLERGIES Allergen (clinical drug ingredient) Drug/Non Drug Allergy documented on EMR Reaction Allergy Type Onset Date Status Penicillin childhood reaction Drug Allergy Active REASON FOR REFERRAL Reason INTAKE RN examination Diagnosis 1 Encounter for genera l [...] Diagnosis Roberto Marc Jet DO, FACP [address] [place], [place] [phone] 09/02/2024 Roberto Chaudhary Encounter for genera l adult medical examination without abnormal findings Z00.00 ASSESSMENTS Encounter Date Diagnosis Assessment Notes Treatment Notes Treatment Clinical Notes 09/02/2024 Encounter for general adult medical examination without abnormal findings (ICD-10 - Z00.00) PLAN OF TREATMENT Referrals Referral Date Details INTAKE RN examination, Mar c Zerbe Nasal obstruction, R am Singh Malladi Right shoulder pain Right wrist pain, Virgen Prieto Next Appt Details Follow Up: 1 Year, Reason: H &P Provider Name:Roberto Proctor Blaisemarc amrit, 09/09/2025 09:00:00 AM, [address] [place], [place], [phone], Progress Notes * Examination Category Sub-Category Detail [...] Referred Provider Not 09/02/2024 Roberto Chaudhary Marc INTAKE RN examinat ion 09/02/2024 Roberto Chaudhary Ram Gopal Nasal obstruction 09/02/2024 Roberto Chaudhary Allison Right s [facility] pain Right wrist pain
--- OUTSIDE RECORDS SUMMARY | 2024-10-28 09:15 | XMS_ITS ---
Author Organization Roberto Chaudhary DO, FACP Address [address] [place], [place] [id number] Care Team Providers Care Advance Agent Name Role Phone JetRoberto Primary Care Provider Sav Dunn MD Unavailable Unavailable REASON FOR VISIT Message Encounters Encounter Location Date Provider Diagnosis Roberto Chaudhary DO [address] [phone] 09/17/2024 Roberto Chaudhary Right wrist pain M25.531 ASSESSMENTS Encounter Date Diagnosis Assessment Notes Treatment Notes Treatment Clinical Notes 09/17/2024 Right wrist pain (ICD-10 - M25.531) PLAN OF TREATMENT Pending Test Test Name Order Date XR wrist RT min 3V 09/17/2024 Next Appt Details Provider Name:Roberto marcus, 09/09/2025 09:00:00 AM, [address] [place] [address], [id number],
--- OUTSIDE RECORDS SUMMARY | 2024-10-28 09:16 | XMS_ITS ---
Author Organization [facility] natan Marble Address [address] [facility] [place] [address] Care Team Providers Care Supervisor Microwave Name Role Phone Roberto Chaudhary MD Primary Care Provider Unavail Janet Mukherjeeter Unavailable [phone] Allergies Allergen (clinical drug ingredient) Drug/Non Drug [...] 11/19/2023 Encounters Encounter Location Date Provider Diagnosis [facility] [address] [place] [phone] 11/19/2023 Marcellus Lozano Pain in left foot [...] Courtney VIVAS LDOB:[birth year] (58 yo F)Acc No.[id number]:11/19/2023 Progress Notes Patient:?Courtney Vivas L Provider:?Marcellus Lozano DPM :1965???Age:58 Y???Sex:Female D ate:11/19/2023 Address:[address] [place], [place] [id number] Pcp:Roberto Chaudhary MD Subjective: * Chief Complaints: [...] 3. ?Marital status: . 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 * Medications:?Not-Taking/PRNA lbuterol Sulfate HFA 108 [...] - S92.515A? Plan: * Treatment: * Procedure Codes:?37751 X-RAY EXAM OF LEFT FOOT 3V, Modifiers: [...] DPM Date:? 024 Generated for Refugio alexis/Shilpi/eTransmitting on:?10/28/2024 09:15 AM EST History and Physical Notes * [...]
--- OUTSIDE RECORDS SUMMARY | 2024-10-28 09:16 | XMS_ITS | Patient Health Record ---
Author Organization Roberto Chaudhary DO, [facility] Address [address] [place] [phone] Care Team Providers Care Distribution Lead Name Role Phone Jet Roberto Primary Care Provider [phone] Sav Dunn MD Unavailable Unavailable ALLERGIES Allergen (clinical drug ingredient) Drug/Non Drug Allergy documented on EMR Reaction Allergy Type Onset Date Status Penicillin childhood reaction Drug Allergy Active RESULTS Component Value Reference Range Notes MM tomosynthesis screening B I Reviewed date:12/26/2023 03:43:47 PM Interpretation:Negative Performing Lab: Notes/Report: [facility]'[address] [place] [address] Mammography Report Signed Patient: Courtney Garcia MR#: [id number] 642 : 1965 Acct:[id number] Age/Sex: 58 / F ADM Date: 12/11/23 Loc: HO.MAMMO Attending Dr: Roberto Chaudhary DO Ordering Physician: Roberto Chaudhary DO Results: 1Negat justine Date of Service: 12/11/23 Follow Up: 1 Year From [facility] ina Mammogram Procedure(s): MM tomosynthesis screening BI Accession Number(s): [id number] cc: Roberto Chaudhary DO EXAMINATION: MM SCREENING [...] in OV> 12/26/23 0930 DD/ 1605 TD/TT: Correspondence Section Supervisor: Blood Urea Nitrogen Reviewed date:06/14/2024 11:47:02 AM Interpretation:Normal Performing Lab:[facility], [address] [place] [phone] Notes/Report: Blood Urea Nitrogen 16 9-16 mg/dL Creatinine Reviewed date:06/14/2024 11:47:02 AM Interpretation:Normal Performing Lab:[facility], [address] [place] [phone] Notes/Report: Creatinine 0.75 0.5-1.4 mg/dL Estimated Glomerular Filt Rate > 60 NOTE: For -Greek individuals, multiply the result by 1.210. Chronic Kidney Disease: Estimated GFR < 60 mL/min/1.73m2 Severe Kidney Disease: Estimated GFR < 15 mL/min/1.73m2 CT chest w con Reviewed date:07/22/2024 03:29:24 PM Interpretation:Abnormal Performing Lab: Notes/Report: [address] [address] [address] Scan Report Signed Patient: Courtney Garcia MR#: [id number] 642 : 1965 Acct:[id number] Age/Sex: 58 / F ADM Date: 06/30/24 Loc: HO.CT Attending Dr: Roberto Chaudhary DO Ordering Physician: Roberto Chaudhary DO Date of Service: 06/30/24 Procedure(s): CT chest w IV con Accession Number(s): [id number] cc: Roberto Chaudhary EXAMINATION: CT CHEST WITH [...] iterative reconstruction technique DLP: 159 mGy-cm FINDINGS: 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 LUNGS: Trachea bronchi are patent. [...] 07/22/24 1337 DD/ 0821 TD/TT: 06/30/24 0835 Correspondence Section Supervisor: US thyroid Reviewed date:09/03/2024 10:16:32 AM Interpretation:Abnormal Performing Lab: Notes/Report: [address] [address] Ultrasound Report Signed Patient: Courtney Garcia MR#: [id number] 642 : 1965 Acct:[id number] Age/Sex: 58 / F ADM Date: 08/14/24 Loc: HO.US Attending Dr: Roberto Chaudhary DO Ordering Physician: Roberto Chaudhary DO Date of Service: 08/14/24 Procedure(s): US thyroid Accession Number(s): [id number] cc: Roberto Chaudhary DO EXAMINATION: US THYROID [...] than or equal to 1 cm: 1. Residential Leasing Agent nodules are described as follows: 1. Location: [...] in OV> 09/03/24923 DD/ TD/TT: 08/14/24 0749 Correspondence Section Supervisor: Complete Blood Count Auto Di ff Reviewed date:09/09/2024 12:39:07 PM Interpretation:Abnormal Performing Lab:[facility], [address] [place] [phone] Notes/Report: White Blood Count 7.9 4.8-10.8 X10*3/uL [...] NRBC Abs Auto 0.000 0.0-0.012 X10*3/uL Comprehensive [place]. Panel Fa st Reviewed date:09/09/2024 01:26:35 PM Interpretation:Normal Performing Lab:[facility], [address] [place] [phone] Notes/Report: Sodium 142 135-145 mmol/L Potassium 4.1 3.3-5.1 mmol/L Chloride 107 96-108 mmol/L Carbon Dioxide 26 22-29 mmol/L Anion Gap 13 12-20 Blood Urea Nitrogen 13 9-16 mg/dL Creatinine 0.75 0.5-1.4 mg/dL Estimated Glomerular Filt Rate > 60 NOTE: For -Greek individuals, multiply the result by 1.210. Chronic [...] Panel Reviewed date:09/09/2024 02:20:23 PM Interpretation:Abnormal Performing Lab:[address] [address] Notes/Report: Triglycerides 92 <150 mg/dL Desirable Triglyceride: [...] Total Reviewed date:09/09/2024 01:26:35 PM Interpretation:Normal Performing Lab:[address] [address] Notes/Report: Vitamin D 25-OH Total 32.3 >30 [...] Hormone Reviewed date:09/09/2024 01:26:35 PM Interpretation:Normal Performing Lab:[facility], [address] [place] [phone] Notes/Report: Thyroid Stimulating Hormone 1.95 0.32-4.0 uIU/ mL TSH 3rd Generation ([facility]) Pathology Reviewed date:09/19/2024 03:39:17 PM Interpretation:Non-diagnostic Performing Lab:[facility], [address] [place] [phone] Notes/Report: REASON FOR REFERRAL Reason Emphysema Abnormal C hest CT Scan Diagnosis 1 Pulmonary emphysema, unspecified emphysema type (J43.9) Referral Organization Roberto Isidro FACP Referring Provider First Name Roberto Referring Provider Last Name Jet Referring Provider [facility] Referred Provider Gavin Kellogg Referred Provider Specialty Pulmonary Di seases General Notes Page,Zhanna 4 03:59:39 PM EDT > Referral faxed prior to scheduling Referral Priority Routine Reason SEWING INSPECTOR examination Diagnosis 1 Encounter for genera l adult medical examination without abnormal findings (Z00.00) Referral Organization Roberto Isidro FACP Referring Provider First Name Roberto Referring Provider Javi Name Jet Referring Provider [facility] Referred Provider Jerrod Whyte Referred Provider Specialty OB - Gynecol ogy General Notes Page,Zhanna 4 04:31:06 PM EDT > Referral faxed prior to scheduling Referral Priority Routine Reason Nasal obstruction Diagnosis 1 Encounter for genera l adult medical examination without abnormal findings (Z00.00) Referral Organization Roberto Isidro FACP Referring Provider First Name Roberto Referring Provider Javi Name Jet Referring Provider [facility] Referred Provider Christopher Nicole Referred [...] Referring Provider Last Name Jet [facility] Referred Provider Virgen Prieto Referred Provider Specialty Orthopedic S urgery Referral Priority Routine Reason Thyroid nodule Diagnosis 1 Disorder of thyroid, unspecified (E07.9) Referral Organization Roberto Isidro FACP Referring Provider First Name Roberto Referring Provider Last Name Jet Referring Provider [facility] Referred Provider Heide Desir Referred Provider Specialty Endocrinolog y General Notes Mikki Solares 024 10:50:06 AM EDT > referral faxed; patient notified., Mikki Solares 09/03/2024 01:41:12 PM EDT > referral faxed manually., Zhanna Hill 09/08/2024 10:26:40 AM EDT > N[facility] ask we fax referral and notes to [phone] Referral Priority Routine Referral Appointment Date 09/09/2024 Reason Right wrist pain Diagnosis 1 Right wrist pain (M2 5.531) Referral Organization Roberto Isidro FACP Referring Provider First Name Roberto Referring Provider Javi Name Jte Referring Provider [facility] Referred Provider Virgen Prieto Referred [...] (E07.9) Active confirmed Disorder of thyroid gland (58008677) Problem Palpitations (R00.2) Active confirmed 49081570 Problem Pulmonary emphysema, unspecified emphysema type (J43.9) Active confirmed 45327806 Problem Obstructive sleep apnea (G47.33) Active confirmed 85408181 Problem Reactive depression (F32.9) Active confirmed 44387347 Problem Nonintractable episodic headache, unspecified headache type (R51) Active confirmed 68067700 Problem Thyroid cyst (E04.1) Active confirmed 46103781 VITAL SIGNS Blood pressure diastolic 60 mm Hg 09/02/2024 Height 68.25 in 09/02/2024 Blood pressure systolic 112 mm Hg 09/02/2024 Weight 216 lbs 09/02/2024 BMI 32.60 kg/m2 09/02/2024 Encounters Encounter Location Date Provider Diagnosis Roberto Chaudhary DO, [facility] [address] [place], [place] [phone] 12/05/2023 Roberto Chaudhary DO, [facility] [address] [place], [place] [phone] 07/22/2024 Roberto Chaudhary DO, [facility] [address] [place], [place] [phone] 09/02/2024 Roberto Chaudhary [facility] examination without abnormal findings Z00.00 Roberto Chaudhary DO, [facility] [address] [place], [place] [phone] 03/26/2024 Roberto Chaudhary Infraclavicular lymphadenopathy R59.0 and Wheezing R06.2 Roberto Proctor Jet , [address] [phone] 03/26/2024 Roberto Chaudhary , [address] [phone] 04/09/2024 Roberto Chaudhary Infraclavicular lymphadenopathy R59.0 Roberto Proctor Jet [facility], [address] [phone] 07/22/2024 Roberto Chaudhary Pulmonary emphysema, unspecified emphysema type J43.9 and Thyroid cyst E04.1 Roberto Hitesh Jet [place], [address] [phone] 09/17/2024 Roberto Chaudhary Right wrist pain M25.531 Roberto Proctor Jet [place], [address] [id number] 09/23/2024 Roberto Chaudhary Roberto Proctor Jet [place], [address] [phone] 12/21/2023 Roberto Jet Roberto Proctor Jet [place], [address] [id number] 12/28/2023 Roberto Chaudhary Subacute cough R05.2 ASSESSMENTS [...] Provider Name:Roberto Magaña amrit, 09/09/2025 09:00:00 AM, [address] [place] [address], [place], [place], [phone], Insurance Providers Payer Name Payer Address Payer Phone Subscriber Number Group Number Insured Name Patient Relationship to Insured Coverage Start Date Coverage End Date [facility] [address] [place], [place] [phone] [id number] Courtney Garcia Self - patient is the insured MEDICAL (GENERAL) HISTORY Medical History History ICD Code obstructive sleep apnea osteoarthritis Reactive depression F32.9 Palpitations R00.2 Nonintractable episodic headache, unspec ified headache type R51 Subacute cough R05.2 Surgical History Surgery Date(Month/Year) tonsillectomy wisdom teeth extraction
--- OUTSIDE RECORDS SUMMARY | 2024-10-28 09:16 | XMS_ITS | Patient Health Record ---
Author Organization [facility] Address [address] [facility] [place] [address] Care Team Providers Care Loom Stop Checker Name Role Phone Roberto Chaudhary MD Primary Care Provider Unavail bandar LozanoMarcellus Unavailable [phone] Allergies Allergen (clinical drug ingredient) Drug/Non Drug [...] 11/19/2023 Encounters Encounter Location Date Provider Diagnosis [facility] [address] [place] [address] 11/19/2023 Marcellus Lozano Pain in left foot [...] Insured Coverage Start Date Coverage End Date [facility] [address] [place] [id number] Courtney Garcia Self - patient is the insured Medical (General) History Medical History History ICD Code Arthritis Broken bones covid-19 Headaches/Migraines Lyme disease Chicken pox Dental implants Surgical History Surgery Date(Month/Year) tonsillectomy 1976
== END 2024-10-27 09:07 | disposition home or self-care (01) ==
LOC: HO.HOSX 09:06
DX: M79.641 Pain in right hand (principal); M65.4 Radial styloid tenosynovitis [de Quervain]
CPT/HCPCS: 20550; 73110; J1100; J2003

== ENCOUNTER 2024-10-27 09:12 | Outpatient (AMB) | payer BC, SELFPAY ==
--- NOTE | 2024-10-27 09:17 | A.OFFVIS_ITS ---
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 Patient reports this has been constant. Describes pain as sharp pains. If she attempts to use her thumb she gets a sharp shooting pain at the base of her right thumb. Reports difficulty with lifting, gripping, grasping, and any movement of the thumb. She states using scissors, lifting bed sheets to put over her at night and these other movements that use the thumb cause her an exacerbation of pain. Denies past injection, OT, or use of hand braces. Has tried Tylenol and ibuprofen without adequate relief. Hx of right wrist fracture in the 3rd grade. 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 The patient states that over this timeframe, her pain has progressively worsened, to the point where she is now experiencing constant pain in the right thumb, wrist, and radiating up into the forearm. Patient states that this pain worsens when attempting to lift her sheets, left the plate into the microwave, or attempting to make pottery, which is something she does with regularity. Patient states she has not tried any prior intervention for relief of this pain. Denies any numbness or tingling in the right upper extremity. No other acute complaints or concerns at this time. [facility] Medical History (Updated 10/27/24 @ 10:07 by RODO Márquez) Somnolence, daytime Retrognathia Solitary thyroid nodule YASMANY (obstructive sleep apnea) Obesity (BMI 30-39.9) Sleep apnea Migraine Surgical History Hx of tonsillectomy Family History Mother Colon cancer Father Colon cancer Social History (Updated 10/27/24 @ 09:24 by SHERRIE Lr) Alcohol intake: current Alcohol intake frequency: holidays/special occasions only Patient Tobacco Use Status: Never used Tobacco Current occupational status: employed Female Reproductive History Menstrual Age of Menarche: 14 Review of Systems Const All systems reviewed & are unremarkable except as noted in HPI and below Physical Exam Vital Signs: BMI result Body Mass Index 31.7 Extrem Other: Patient is alert, oriented, and in no acute distress. Neuro: Normal sensation of the tips of all digits of the right hand at this time Vascular: Cap refill brisk Pain: Tenderness to palpation of the right radial styloid radiating up into the forearm Positive Angus on the right Negative Angus on the left No tenderness to palpation of the DRUJ, ulnar styloid, or elsewhere in the right hand or wrist Negative CMC grind on the right No tenderness to palpation of the MCP joint of the right thumb ROM: Patient is able to make a closed fist and extend all digits of the right hand fully Skin: No lacerations or abrasions. General: No ecchymosis, erythema, or evidence of infection. 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 Assessment & Plan Assessment & Plan (1) De Quervain's tenosynovitis, right: Code(s): M65.4 - Radial styloid tenosynovitis [de Quervain] Category: Medical Plan 1. De Quervain tenosynovitis, right Patient is educated about this condition Patient is educated about the treatment options available Patient would like to proceed with steroid injection Injection #1: The risks and benefits of a steroid injection including but not limited to risk of damage to blood vessels, nerves, tendons, infection, skin bleaching, failure to improve symptoms, increased pain, and possible need for further injections or other intervention were discussed with the patient and the patient wishes to proceed with the steroid injection. Once consent was obtained, I aseptically prepped the area over the 1st dorsal compartment of the right thumb. I then injected the 1st dorsal compartment with a combination of 1 mL of dexamethasone (4mg/ml), and 1% lidocaine. The patient tolerated the procedure well with no complications and good resolution of their symptoms prior to leaving clinic. If the patient continues to have pain 6-8 weeks following this injection, they may call to schedule appointment to discuss alternative treatment options Orders: Orders XR wrist RT w scaphoid Today M79.641 - Pain in right hand Coding Level of Care Code New Pt Level 3 (22029) Diagnoses De Quervain's tenosynovitis, right M65.4 CPT Codes Tendon Injection - Tendon Injection 1: [id number] Tendon Sheath Injection ([id number])
--- OUTSIDE RECORDS SUMMARY | 2024-10-27 09:17 | XMS_ITS ---
Author Organization [facility] Address [address] [facility] [place] [address] Care Team Providers Care Soaking Pits Supervisor Name Role Phone Roberto Chaudhary MD Primary Care Provider Unavail Janet Mukherjeeter Unavailable [phone] Allergies Allergen (clinical drug ingredient) Drug/Non Drug Allergy documented on EMR Reaction Allergy Type Onset Date Status Substance with penicillin structure and antibacterial mechanism of action (substance) Penicillins rash Drug Allergy Active REASON FOR VISIT Painful toe(s) Medications Medication SIG (Take, Route, Frequency, Duration) Notes Start Date End Date Status Albuterol Sulfate HFA 108 (90 Base) MCG/ACT INHALE 1 PUFF BY MOUTH EVERY 4 HOURS NEEDED Inhalation for 25 Days Not-Rob daily Social History Tobacco Use: Social History Observation Description Date Details (start date - stop date) Never Smoker NA - NA Tobacco Use/Smoking Question Answer Notes Are you a: nonsmoker Additional Findings: Tobacco Non-User Current no n-smoker Alcohol Screen Question Answer Notes Did you have a drink containing alcohol in the p ast year? Yes Points 0 Interpretation Negative Vital Signs Height 5 ft 9 in in 11/19/2023 Weight 200 lbs 11/19/2023 BMI 29.53 kg/m2 11/19/2023 Encounters Encounter Location Date Provider Diagnosis [facility] [address] [facility] [place] [address] 11/19/2023 Marcellus Lozano Pain in left foot M79.672 and Closed nondisplaced fracture of proximal phalanx of lesser toe of left foot, initial encounter S92.515A Assessments Encounter Date Diagnosis (ICD Code) Assessment Notes Treatment Notes Treatment Clinical Notes Section Notes 11/19/2023 Pain in left foot (ICD-10 - M79.672) 11/19/2023 Closed nondisplaced fracture of proximal phalanx of lesser toe of left foot, initial encounter (ICD-10 - S92.515A) Plan Of Treatment Pending Test Test Name Order Date X ray : Foot, left 3V 11/19/2023 Next Appt Details Follow Up: prn, Reason: Progress Notes * Courtney VIVAS LDOB:[birth year] (58 yo F)Acc No.[id number]:11/19/2023 Progress Notes Patient:?Courtney Vivas L Provider:?Marcellus Lozano DPM :1965???Age:58 Y???Sex:Female D ate:11/19/2023 Address:[address] [place], [place] [id number] Pcp:Roberto Chaudhary MD Subjective: * Chief Complaints: * ???Painful toe(s) * HPI: ???Toe pain:?Nature:?aching , swelling , tenderness , stiffness.?Location:?4th toe , Left foot.?Duration:?a month.?Onset/Cause:?sudden, stubbed toe 10/20/23.?Course:?unchanged.?Aggrevated by:?any pressure , shoes , standing/walking.?Severity/Quality:?moderate , severe.? * ROS:?General/Constitutional:?Nausea?denies, denies.?Vomiting?denies, denies.?Hunger Thirst?denies, denies.?Loss appetite?denies, denies.?Chills?denies, denies.?Fatigue?denies, denies.?Fever?denies, denies.?Night Sweats denies, denies.?Unexplained weight loss?denies, denies.?Unexplained weight gain?denies.?Ophthalmologic:?Blurred vision?denies.?Red eye?denies.?HEENTM:?Dentures?denies, denies.?Dizziness?denies, denies.?Glasses/contacts?admits, denies.?Retinopathy?denies, denies.?Blurred/double vision?denies, denies.?TMJ?denies, denies.?Discharge/drainage?denies, denies.?Implants?denies, denies.?Sore throat?denies.?Dental implants?admits.?Hard of hearing ?denies, denies.?Difficulty chewing/swallowing/speaking?denies, denies.?Nose bleeds?denies, denies.?Sore mouth?denies, denies.?Swollen glands?denies.?Respiratory:?On Oxygen?denies, denies.?Pneumonia/pleurisy?denies, denies.?Bronchitis?denies, denies.?Emphysema?denies, denies.?Coughing?denies, denies.?Cough blood?denies, denies.?Shortness of breath?denies, denies.?Wheezing?admits, denies.?Cardiovascular:?Pacemaker?denies, denies.?MVP?denies, denies.?WPW?denies, denies.?CHF?denies, denies.?Heart attack?denies, denies.?Septal defect?denies, denies.?Rapid beat?denies, denies.?Chest pain ?denies, denies.?Atrial Fib.?denies, denies.?Murmur/Palpitations?denies, denies.?Gastrointestinal:?Hemorrhoids?denies, denies.?Stomach/Abdominal pain?denies, denies.?Dark blood stool?denies, denies.?Irritable bowel ?denies, denies.?Constipation?denies, denies.?Diarrhea?denies, denies.?Vomiting?denies.?Hematology:?Swelling?denies, denies.?Clots?denies.?Varicose Veins?denies.?Bruising?denies, denies.?Bleeding problem?denies, denies.?Genitourinary:?Blood urine?denies, denies.?Frequent/Painfu/urination/bladder control?denies, denies.?Kidney stones?denies, denies.?Infection (UTI)?denies, denies.?Nephropathy?denies, denies.?sex trans dis (STD)?denies.?Prostate?denies.?Musculoskeletal:?Hammertoes?denies, denies.?Bunions?denies, denies.?Scoliosis/kyphosis?denies.?Back Pain?admits.?Muscle Cramps/ Resting?denies.?Muscle cramps / walking?denies, denies.?Generalized aches and pains?denies, denies.?Weakness?denies, denies.?Integ.:?Marquez?denies, denies.?Scars?denies, denies.?Corns/calluses?denies, denies.?Ingrown nails?denies, denies.?Painful nails?denies, denies.?Open Sores?denies.?Rashes?denies, denies.?Neurologic:?Difficulty sleeping?denies, denies.?Bipolar?denies.?Brain disorder?denies, denies.?Numbness?denies.?Balance trouble?denies, denies.?Confusion?denies, denies.?Fainting/blackouts?denies, denies.?Headache?denies.?Tingling?denies.?Tremors?denies, denies.? * Medical History:? * Surgical History:?tonsillect patria 1976 * Hospitalization/Major Diagno stic Procedure:?Denies Past Hospitalization * Family History:?Mother: dece ased, diagnosed with Unspecified cerebral artery occlusion with cerebral infarction, Other malignant neoplasm of unspecified site.?Father: , diagnosed with Unspecified essential hypertension, Other malignant neoplasm of unspecified site.?Paternal Grand Mother: diagnosed with Diabetic - NIDDM, Unspecified heart disease.?Paternal Grand Father: diagnosed with Diabetic - NIDDM, Unspecified heart disease.?Maternal Grand Mother: diagnosed with Family history of arthritis, Unspecified heart disease.?Maternal Grand Father: diagnosed with Family history of arthritis, Unspecified heart disease.? * Social History:?Tobacco Use:?Tobacco Use/Smoking?Are you a:?nonsmoker ?Additional Findings: Tobacco Non-User?Current non-smoker ???Drugs/Alcohol:?Drugs?Have you used drugs other than those for medical reasons in the past 12 months??No ?Alcohol Screen?Did you have a drink containing alcohol in the past year??Yes ?Points?0 ?Interpretation?Negative ???Miscellaneous:?Caffeine: yes, frequency:. ?Children: yes, 3. ?Marital status: . 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 * Medications:?Not-Taking/PRNA lbuterol Sulfate HFA 108 (90 Base) MCG/ACT Aerosol Solution INHALE 1 PUFF BY MOUTH EVERY 4 HOURS NEEDED Inhalation Medication List reviewed and reconciled with the patientNot-Taking/PRN Albuterol Sulfate HFA 108 (90 Base) MCG/ACT Aerosol Solution INHALE 1 PUFF BY MOUTH EVERY 4 HOURS NEEDED Inhalation Medication List reviewed and reconciled with the patient * Allergies:?Penicillins: rash yes[Allergies Verified] Objective: * Vitals:?Ht:5 ft 9 in, Wt:200 , BMI:29.53, Shoe size:10.5, Ht-cm: 175.26 cm, Wt- k.72 kg. * Examination: ???General Examination: ?GENERAL APPEARANCE:?pleasant, alert, well nourished, well developed, well hydrated, with good attention to hygene/body habitus, and in no acute distress.?ORIENTED:?person,place, and time.?Neurological: ?SENSORY:?Neurological exam reveals intact sensorium, pain sensation normal, vibration sensation intact, pinprick sensation is normal in the lower extremities, Pt denies, anesthesia, burning, paresthesia, tingling, B/L.?BABINSKI REFLEX:?absent.?Vascular: ?DP PULSES:?2/4, B/L.?PT PULSES:?2/4, B/L.?CAPILLARY FILL TIME:?3 secs. per digit, B/L.?SKIN TEMPERTURE GRADIENT OF THE LOWER EXTERMITIES:?warm to cool, proximal to distal, B/L.?HAIR GROWTH/TEXTURE/ELASTICITY/TURGOR:?normal, B/L.?PIGMENTATION:?normal, B/L.?EDEMA:? 2/, Left 4th toe.?TELANGECTASIA:?absent.?VARICOSITIES:?absent.?Dermatologic: ?SKIN FINDINGS:?Skin exam reveals normal texture, elasticity, and tugor. There are no masses. The interspaces are clear.?Orthopedic: ?MUSCLE STRENGTH:?5/5 all groups in a symmetrical fashion , B/L.?GAIT ABNORMALITY:?pronated, abducted, B/L.?DIGITAL DEFORMITIES:? Digital contracture, PIPJ, 2-5 B/L, incompl- reducible with WB, or to push-up test, no over, nor underlapping.?X-Rays - IMAGING REPORT: ?Clinical Indication(s):? Evaluate for Fracture.?Views:? 3 views of Foot, LEFT.?Fracture:? oblique fracture, transverse fracture, intra-articular extending into joint margin, proximal phalange, T3 with slight comminution.? Assessment: * Assessment: 1.?Pain in left foot - M79.6 72 (Primary)?2.?Closed nondisplaced fracture of proximal phalanx of lesser toe of left foot, initial encounter - S92.515A? Plan: * Treatment: * Procedure Codes:?64866 X-RAY EXAM OF LEFT FOOT 3V, Modifiers: 26 , LT * Preventive Medicine:? ??Counseling:?Discussion:?-03: Office or other outpatient visit for the evaluation and management of a new patient, which required a medically appropriate history and/or examination and LOW level of DECISION MAKING for: 1 STABLE ACUTE UNCOMPLICATED PROBLEM, 2 OR MORE MINOR PROBLEMS, OR 1 STABLE CHRONIC PROBLEM, THAT POSE(S) A LOW RISK FOR MORBIDITY/MORTALITY. The visit on the day of the encounter encompassed interpreting the data and educating the patient as to the nature of their condition, treatment options available according to their individual PMH, meds, allergies, and overall health/living conditions, as well as any potential risks or complications that may occur from a failure to adhere to, and participate in, the recommended course of therapy. The discussion included a complete verbal, and/or written explanation of the examination results, any x-rays taken, the proposed diagnosis, and outline of the treatment plan. A schedule for future care needs was also explained. The patient verbalized an understanding of the instructions at this time and agreed to be an active participant in their treatment. If the patient should think of any questions or concerns after the visit, I have encouraged the patient to call the office.?P.R.I.C.E.:?The patient was counseled on the use of P.R.I.C.E. and NSAIDS (if well tolerated) to aid in the recovery from their painful condition; pt did not want walking cast boot adn prefers to choose dansko shoes with digital strapping with compression.? * Follow Up:?prn * Images: * Sign off status: Completed true * Provider:?Marcellus Lozano DPM Date:? 024 Generated for Refugio alexis/Shilpi/eTransmitting on:?10/27/2024 09:17 AM EST History and Physical Notes * HPI (History of Present Illness) Category Sub-Category Detail Notes Category Not es Toe pain Nature: aching , swelling , tenderne ss , stiffness Location: 4th toe , Left foot Duration: a month Onset/Cause: sudden, stubbed toe 10/20/23 Course: unchanged Aggravated by: any pressure , shoes , standing/walking Severity/Quality: moderate , severe Examination Category Sub-Category Detail Notes Category Not es Neurological SENSORY: Neurological exa m reveals intact sensorium, pain sensation normal, vibration sensation intact, pinprick sensation is normal in the lower extremities, Pt denies, anesthesia, burning, paresthesia, tingling, B/L BABINSKI REFLEX: absent Dermatologic SKIN FINDINGS: Skin exam reveal s normal texture, elasticity, and tugor. There are no masses. The interspaces are clear Orthopedic GAIT ABNORMALITY: pronated, abducted, B/L DIGITAL DEFORMITIES: Digital contracture , PIPJ, 2-5 B/L, incompl-reducible with WB, or to push-up test, no over, nor underlapping MUSCLE STRENGTH: 5/5 all groups in a symmetrical fashion , B/L General Examination GENERAL APPEARANCE: pleasant , alert, well nourished, well developed, well hydrated, with good attention to hygene/body habitus, and in no acute distress ORIENTED: person,place, and ti me Vascular DP PULSES(B): 2/4, B/L PT PULSES(B): 2/4, B/L CAPILLARY FILL TIME: 3 secs. per digit, B/L TEMPERTURE GRADIENT(C): warm to cool, pr oximal to distal, B/L TROPHIC CONDITION-TEXTURE/ELASTICITY/TURGOR/HAIR GROWTH(B): normal, B/L EDEMA(C): 2/4, Left 4th toe TELANGECTASIA: absent VARICOSITIES: absent PIGMENTATION: normal, B/L X-Rays - IMAGING REPORT Fracture: oblique fracture, transverse fracture, intra-articular extending into joint margin, proximal phalange, T3 with slight comminution Views: 3 views of Foot, LEF T Clinical Indication(s): Evaluate for Fra cture
--- OUTSIDE RECORDS SUMMARY | 2024-10-27 09:17 | XMS_ITS | Patient Health Record ---
Author Organization [facility] Address [address] [facility] [place] [address] Care Team Providers Care Physical Medicine Physician Name Role Phone Roberto Chaudhary MD Primary Care Provider Unavail bandar LozanoMarcellus Unavailable [phone] Allergies Allergen (clinical drug ingredient) Drug/Non Drug Allergy documented on EMR Reaction Allergy Type Onset Date Status Substance with penicillin structure and antibacterial mechanism of action (substance) Penicillins rash Drug Allergy Active Reason For Referral No Information Medications Medication SIG (Take, Route, Frequency, Duration) [...] 11/19/2023 Encounters Encounter Location Date Provider Diagnosis [facility] [address] [facility] [address] 11/19/2023 Marcellus Lozano Pain in left foot [...] X ray : Foot, left 3V 11/19/2023 Insurance Providers Payer Name Payer Address Payer Phone Subscriber Number Group Number Insured Name Patient Relationship to Insured Coverage Start Date Coverage End Date [facility] [address] [place] [address] [id number] Courtney Garcia Self - patient is the insured Medical (General) History Medical History History ICD Code Arthritis Broken bones covid-19 Headaches/Migraines Lyme disease Chicken pox Dental implants Surgical History Surgery Date(Month/Year) tonsillectomy 1976
--- OUTSIDE RECORDS SUMMARY | 2024-10-27 09:17 | XMS_ITS | Patient Health Record ---
Author Organization Roberto Chaudhary DO, [facility] Address [address] [place] [phone] Care Team Providers Care Receiver/Laborer Name Role Phone Jet Roberto Primary Care Provider Sav Dunn MD Unavailable Unavailable ALLERGIES Allergen (clinical drug ingredient) Drug/Non Drug Allergy documented on EMR Reaction Allergy Type Onset Date Status Penicillin childhood reaction Drug Allergy Active RESULTS Component Value Reference Range Notes MM tomosynthesis screening B I Reviewed date:12/26/2023 03:43:47 PM Interpretation:Negative Performing Lab: Notes/Report: [facility] [place] [address] Mammography Report Signed Patient: Courtney Garcia MR#: [id number] 642 : 1965 Acct:[id number] Age/Sex: 58 / F ADM Date: 12/11/23 Loc: HO.MAMMO Attending Dr: Roberto Chaudhary DO Ordering Physician: Roberto Chaudhary DO Results: 1Negat justine Date of Service: 12/11/23 Follow Up: 1 [facility] M[facility] Procedure(s): MM tomosynthesis screening BI Accession Number(s): [id number] cc: Roberto Chaudhary DO EXAMINATION: MM SCREENING DIGITAL BREAST TOMOSYNTHESIS, BILATERAL CLINICAL INFORMATION: Screening. Asymptomatic. COMPARISON: Mammography: This study is compared with prior exams dating back to 2019. TECHNIQUE: Digital breast tomosynthesis is performed in both the craniocaudal and mediolateral oblique views along with computer-aided detection (CAD). Synthesized 2D images are generated from the tomosynthesis. FINDINGS: The breasts are almost entirely fatty (ACR BI-RADS breast composition Category a). There are no significant masses, abnormal calcifications, or other abnormalities. MM/MM tomosynthesis screening BI IMPRESSION: No mammographic evidence of malignancy. ASSESSMENT: BI-RADS BI-RADS 1 - Negative RECOMMENDATION: Routine annual mammography screening. 1 year F/U This examination should not preclude the clinical evaluation of a suspicious palpable abnormality. This patient's information was entered into a reminder system with a target due date for their next mammogram. Dictated By: Agnieszka Levin MD Signed By: <Electronically signed by Agnieszka Levin MD in OV> 12/26/23 0930 DD/ 1605 TD/TT: Safe Expert: Blood Urea Nitrogen Reviewed date:06/14/2024 11:47:02 AM Interpretation:Normal Performing Lab:[facility], [address] [place] [phone] Notes/Report: Blood Urea Nitrogen 16 9-16 mg/dL Creatinine Reviewed date:06/14/2024 11:47:02 AM Interpretation:Normal Performing Lab:[facility], [address] [place] [phone] Notes/Report: Creatinine 0.75 0.5-1.4 mg/dL Estimated Glomerular Filt Rate > 60 NOTE: For -Faroese individuals, multiply the result by 1.210. Chronic Kidney Disease: Estimated GFR < 60 mL/min/1.73m2 Severe Kidney Disease: Estimated GFR < 15 mL/min/1.73m2 CT chest w con Reviewed date:07/22/2024 03:29:24 PM Interpretation:Abnormal Performing Lab: Notes/Report: [address] [address] [address] Scan Report Signed Patient: Courtney Garcia MR#: [id number] 642 : 1965 Acct:[id number] Age/Sex: 58 / F ADM Date: 06/30/24 Loc: HO.CT Attending Dr: Roberto Chaudhary DO Ordering Physician: Roberto Chaudhary DO Date of Service: 06/30/24 Procedure(s): CT chest w IV con Accession Number(s): [id number] cc: Roberto Chaudhary EXAMINATION: CT CHEST WITH CONTRAST CLINICAL INFORMATION: Infraclavicular lymphadenopathy COMPARISON: 09/12/2023 chest radiograph, 08/22/2019 chest CTA TECHNIQUE: Multidetector volumetric CT imaging of the chest was obtained after the administration of 65 mL of Omnipaque 350 intravenous contrast without immediate adverse reactions. Axial MIP volume rendering provided. Sagittal and coronal reformatted images were obtained. This CT examination was performed using dose optimization techniques as appropriate, variously including the following: *Automated exposure control *Adjustment of mA and/or kV according to patient size (this includes techniques or standardized protocols for targeted exams where dose is matched to indication/reason for exam; i.e. extremities or head) *Use of iterative reconstruction technique DLP: 159 mGy-cm FINDINGS: LAW SECRETARY: 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 LUNGS: Trachea bronchi are patent. Mild centrilobular emphysema. Mild mosaic attenuation left lower lobe. Scattered mild atelectasis. No consolidations or groundglass opacities. Small left lower lobe granuloma, 4:35. No suspicious lung nodules. MEDIASTINUM/CHEST WALL: Partial visualization of left thyroid hypodensities. Calcification posterior to the tracheal bifurcation. No pathologic lymphadenopathy. Couple left subpectoral lymph nodes measuring 1.9 and 0.9 cm, coronal 5:42. 8 mm left infraclavicular lymph node, coronal 5:46. Asymmetry of the pectoralis minor muscles, left relatively smaller than right. HEART AND GREAT VESSELS: Heart is not enlarged. No pericardial effusion. Degree of coronary calcifications: Trace. Nonaneurysmal aorta. Nonenlarged pulmonary arteries. PLEURA: There is no pleural effusion. No pleural mass or thickening. AXILLA: Nonspecific lymph nodes. No lymphadenopathy. UPPER ABDOMEN: Diffuse hypodensity to the liver parenchyma. 5.8 cm left upper pole renal cyst. Too small to characterize probable right upper pole renal cyst. Diverticulosis. OSSEOUS STRUCTURES: Mild L1 compression deformity, seen on September [address]/CT chest w IV con IMPRESSION: Mild centrilobular emphysema and mild mosaic attenuation left lower lobe. No suspicious lung nodules. Incomplete evaluation of thyroid hypodensities. Thyroid ultrasound recommended. Left subpectoral and infraclavicular lymph nodes as described. Hepatic steatosis. Left upper pole renal cyst. Diverticulosis. Fleischner guidelines were followed. Electronically signed by: Guerda Garcia MD 07/22/2024 01:37 PM EDT RP Dictated By: Guerda Garcia MD Signed By: <Electronically signed by Guerda Garcia MD in OV> 07/22/24 1337 DD/ 0821 TD/TT: 06/30/24 0835 Safe Expert: US thyroid Reviewed date:09/03/2024 10:16:32 AM Interpretation:Abnormal Performing Lab: Notes/Report: [address] [address] Ultrasound Report Signed Patient: Courtney Garcia MR#: [id number] 642 : 1965 Acct:[id number] Age/Sex: 58 / F ADM Date: 08/14/24 Loc: HO.US Attending Dr: Roberto Chaudhary DO Ordering Physician: Roberto Chaudhary DO Date of Service: 08/14/24 Procedure(s): US thyroid Accession Number(s): [id number] cc: Roberto Chaudhary DO EXAMINATION: US THYROID CLINICAL INFORMATION: Thyroid cyst. COMPARISON: None available. TECHNIQUE: Linear transducer grayscale and color Doppler examination with attention to the region of the thyroid. FINDINGS: SIZE: Measurements of the thyroid lobes and nodules are given in sagittal, anteroposterior and transverse dimensions respectively. Right Thyroid Lobe: 4.8 x 1.4 x 1.4 cm, volume 4.9 mL. Parenchyma: The gland echotexture is homogeneous. Thyroid vascularity is normal. Left Thyroid Lobe: 5.3 x 1.5 x 1.7 cm, volume 7.0 mL. Parenchyma: The gland echotexture is homogeneous. Thyroid vascularity is increased. Isthmus: 0.4 cm in maximum AP dimension. Estimated total number of nodules greater than or equal to 1 cm: 1. Chemical Recovery Operator nodules are described as follows: 1. Location: Left upper/mid pole. Size: 1.5 x 1.2 x 1.2 cm, volume 1.12 mL. Nodule characteristics: Composition: Mixed cystic and solid (1). Echogenicity: Cannot be determined (1). Shape: Taller than wide (3). Margins: Smooth (0). Echogenic Foci: None (0). ACR TI-RADS total points: 5 ACR TI-RADS category: 4 NODES: No lymphadenopathy is seen in the tissue surrounding the thyroid gland. US/US thyroid IMPRESSION: A 1.5 cm left TR 4 thyroid nodule meets criteria for biopsy. Fine-needle aspiration recommended. This study was presented to me on September 03, 2024 for interpretation. PSA staff will provide results to referring provider at this time. ACR TI-RADS RECOMMENDATION REFERENCE: Ultrasound-guided fine-needle aspiration, followup ultrasound, no further follow up. * TR1 (0 point) and TR2 (2 points): No FNA or follow up. * TR3 (3 points): FNA if more than or equal to 2.5 cm in maximum dimension, followup ultrasound in 1, 3 and 5 years if 1.5 to 2.4 cm in maximum dimension. * TR4 (4-6 points): FNA if more than or equal to 1.5 cm in maximum dimension, followup ultrasound in 1, 2, 3 and 5 years if 1 to 1.4 cm in maximum dimension. * TR5 (more than or equal to 7 points): FNA if more than or equal to 1 cm in maximum dimension, followup ultrasound every year for 5 years if 0.5 to 0.9 cm in maximum dimension. * TR3, TR4 or TR5 nodules that are below the size threshold for followup receive no follow up. Electronically signed by: Marla Eason MD 09/03/2024 09:24 AM EDT Dictated By: Marla Eason MD Signed By: <Electronically signed by Marla Eason MD in OV> 09/03/24923 DD/ TD/TT: 08/14/24 0749 Safe Expert: Complete Blood Count Auto Di ff Reviewed date:09/09/2024 12:39:07 PM Interpretation:Abnormal Performing Lab:[facility], [address] [place] [phone] Notes/Report: White Blood Count 7.9 4.8-10.8 X10*3/uL Red Blood Count 5.02 4.20-5.50 X10*6/uL Hemoglobin 14.4 12.0-16.0 g/dl Hematocrit 43.6 37.0-47.0 % Mean Corpuscular Volume 86.9 80.0-98.0 fL Mean Corpuscular Hemoglobin 28.7 27.0-33.0 pg Mean Corpuscular HGB Conc 33.0 31.0-35.0 g/dl Red Cell Distribution Width 12.8 11.0-16.0 % Platelet Count 257 160-400 X10*3/uL Mean Platelet Volume 9.4 9.4-12.3 fL Neutrophils Percent Auto 33.9 45-73 % Imm Gran Pct Auto 1.0 0.0-0.4 % Lymphocytes Percent Auto 53.5 20-40 % Monocytes Percent Auto 6.2 2-11 % Eosinophils Percent Auto 4.8 0-4 % Basophils Percent Auto 0.6 0-2 % NRBC Pct Auto 0.0 0.0-0.2 /100WBC Neutrophils Absolute Auto 2.7 2.0-8.3 x10*3/u L Imm Gran Abs Auto 0.08 0.00-0.03 X10*3/uL Lymphocytes Absolute Auto 4.3 1.2-4.9 X10*3/u L Monocytes Absolute Auto 0.5 0.1-1.2 X10*3/uL Eosinophils Absolute Auto 0.4 0.0-0.4 X10*3/u L Basophils Absolute Auto 0.1 0.0-0.2 X10*3/uL NRBC Abs Auto 0.000 0.0-0.012 X10*3/uL Comprehensive [place]. Panel Fa st Reviewed date:09/09/2024 01:26:35 PM Interpretation:Normal Performing Lab:[facility], [address] [place] [phone] Notes/Report: Sodium 142 135-145 mmol/L Potassium 4.1 3.3-5.1 mmol/L Chloride 107 96-108 mmol/L Carbon Dioxide 26 22-29 mmol/L Anion Gap 13 12-20 Blood Urea Nitrogen 13 9-16 mg/dL Creatinine 0.75 0.5-1.4 mg/dL Estimated Glomerular Filt Rate > 60 NOTE: For -Faroese individuals, multiply the result by 1.210. Chronic Kidney Disease: Estimated GFR < 60 mL/min/1.73m2 Severe Kidney Disease: Estimated GFR < 15 mL/min/1.73m2 Glucose Fasting 98 60-99 mg/dL Calcium 9.5 8.4-10.2 mg/dL Bilirubin Total 0.6 0.0-1.0 mg/dL Aspartate Amino Transferase 24 5-31 U/L Alanine Aminotransferase 17 0-31 U/L Total Protein 7.4 6.5-8.0 g/dL Albumin Level 4.3 3.5-5.0 g/dL Alkaline Phosphatase 91 39-117 U/L Lipid Panel Reviewed date:09/09/2024 02:20:23 PM Interpretation:Abnormal Performing Lab:[address] [phone] Notes/Report: Triglycerides 92 <150 mg/dL Desirable Triglyceride: less than 150 mg/dL Borderline High Triglyceride 150-199 mg/dL High Triglyceride: 200-499 mg/dL Very High Triglyceride: greater than or equal to 5OO mg/dL Cholesterol 249 <200 mg/dL Desirable Cholesterol: less than 200 mg/dL Borderline High Cholesterol: 200-239 mg/dL High Cholesterol: greater than 239 mg/dL LDL Cholesterol Calculated 166 <100 mg/dL Desirable LDL: less than 100 mg/dL Near Optimal/Above Optimal LDL: 110-129 mg/dL Borderline High LDL: 130-159 mg/dL High LDL: 160-189 mg/dL Very High LDL: greater than or equal to 190 mg/dL HDL Cholesterol 65 >40 mg/dL Desirable HDL: greater than 40 mg/dL Note: This HDL assay may give artificially low results in patients with liver disease. Vitamin D 25-OH Total Reviewed date:09/09/2024 01:26:35 PM Interpretation:Normal Performing Lab:[address] [phone] Notes/Report: Vitamin D 25-OH Total 32.3 >30 ng/mL Health Based Reference Values* < 20 ng/mL Deficient 20-30 ng/mL Insufficient > 30 ng/mL Sufficient *True SALMON. N Engl J Med. 2007;357:266-280 Care must be taken in interpreting Vitamin D results from different laboratories and methodologies. Published data demonstrated that results from patients undergoing hemodialysis may show a negative bias when tested with various automated 25-OH vitamin D assays when compared to LC-MS/MS. When testing samples from patients whose predominant form of Vitamin D is Vitamin D2, such as patients receiving Vitamin D2 supplementation, results that are subtherapeutic should be confirmed with another method such as LC-MS/MS. Thyroid Stimulating Hormone Reviewed date:09/09/2024 01:26:35 PM Interpretation:Normal Performing Lab:[facility], [address] [place] [phone] Notes/Report: Thyroid Stimulating Hormone 1.95 0.32-4.0 uIU/ mL TSH 3rd Generation ([facility]) Pathology Reviewed date:09/19/2024 03:39:17 PM Interpretation:Non-diagnostic Performing Lab:[facility], [address] [place] [phone] Notes/Report: REASON FOR REFERRAL Reason Emphysema Abnormal C hest CT Scan Diagnosis 1 Pulmonary emphysema, unspecified emphysema type (J43.9) Referral Organization Roberto Isidro FACP Referring Provider First Name Roberto Referring Provider Last Name Jet Referring Provider [facility] Internal edicine Referred Provider Gavin Kellogg Referred Provider Specialty Pulmonary Di seases General Notes Page,Zhanna 4 03:59:39 PM EDT > Referral faxed prior to scheduling Referral Priority Routine Reason GAUGER DELIVERY examination Diagnosis 1 Encounter for genera l adult medical examination without abnormal findings (Z00.00) Referral Organization Roberto Isidro FACP Referring Provider First Name Roberto Referring Provider Javi Name Jet Referring Provider [facility] Internal ed[facility] Referred Provider Jerrod Whyte Referred Provider Specialty OB - Gynecol ogy General Notes Page,Zhanna 4 04:31:06 PM EDT > Referral faxed prior to scheduling Referral Priority Routine Reason Nasal obstruction Diagnosis 1 Encounter for genera l adult medical examination without abnormal findings (Z00.00) Referral Organization Roberto Isidro FACP Referring Provider First Name Roberto Referring Provider Javi Name Jet Referring Provider [facility] Referred Provider Christopher Nicole Referred Provider Specialty Otology, Lar yngology, Rhinology General Notes Page,Zhanna 4 04:31:53 PM EDT > Referral faxed prior to scheduling Referral Priority Routine Reason Right shoulder pain Right wrist pain Diagnosis 1 Encounter for genera l adult medical examination without abnormal findings (Z00.00) Referral Organization Roberto Isidro FACP Referring Provider First Name Roberto Referring Provider Last Name Jet Ref[facility] Referred Provider Virgen Prieto Referred Provider Specialty Orthopedic S urgery Referral Priority Routine Reason Thyroid nodule Diagnosis 1 Disorder of thyroid, unspecified (E07.9) Referral Organization Roberto Isidro FACP Referring Provider First Name Roberto Referring Provider Last Name Jet Referring Provider [facility] Referred Provider Heide Desir Referred Provider Specialty Endocrinolog y General Notes Mikki Solares 024 10:50:06 AM EDT > referral faxed; patient notified., Mikki Solares 09/03/2024 01:41:12 PM EDT > referral faxed manually., Zhanna Hill 09/08/2024 10:26:40 AM EDT > Niki at [facility] Endo ask we fax referral and notes to [phone] Referral Priority Routine Referral Appointment Date 09/09/2024 Reason Right wrist pain Diagnosis 1 Right wrist pain (M2 5.531) Referral Organization Roberto Isidro FACP Referring Provider First Name Roberto Referring Provider Javi Name Jet Referring Provider [facility] Internal edicine Referred Provider Virgen Prieto Referred Provider Specialty Orthopedic S urgery General Notes Zhanna Hill 03:10:50 PM EST > Referral faxed prior to scheduling. Referral Priority Routine IMMUNIZATIONS Vaccine Route Administration Date Status Comme nts TDaP Unknown 06/18/2021 Administered Hepatitis B (20 and more) Unknown 06/25/2021 Administer ed MMR Unknown 06/25/2021 Administered COVID-19 Moderna Vaccine Unknown 01/15/2021 Administere d COVID-19 Pfizer BioNTech Unknown 10/02/2021 Administere d COVID-19 Moderna Vaccine Unknown 02/12/2021 Administere d COVID-19 Moderna Bivalent Unknown 08/02/2022 Administer ed Influenza Quad Unknown 08/02/2022 Administered Influenza Quad Unknown 10/02/2021 Administered Hepatitis B (20 and more) Unknown 07/24/2021 Administer ed MMR Unknown 07/24/2021 Administered Hepatitis B (20 and more) Unknown 02/10/2022 Administer ed Influenza Quad Unknown 08/03/2023 Administered Influenza Unknown 09/01/2019 Refused SOCIAL HISTORY Tobacco Use: Social History Observation Description Date Details (start date - stop date) Never Smoker NA - NA Sex Assigned At : Social History Observation Description Sex Assigned At Unknown Tobacco Use/Smoking Question Answer Notes Patient is a nonsmoker Additional Findings: Tobacco Non-User Cu rrent non-smoker, currently using no form of tobacco Alcohol Screen Question Answer Notes Did you have a drink contain ing alcohol in the past year? Yes How often did you have a dri nk containing alcohol in the past year? Monthly or less (1 point) How many drinks did you have on a typical day when you were drinking in the past year? 1 or 2 drinks (0 point) How often did you have 6 or more drinks on one occasion in the past year? Never (0 point) Points 1 Interpretation Negative PROBLEMS Problem Type ICD Code Onset Dates Problem Status W/U Status Risk SNOMED Code Notes Problem Disorder of thyroid, unspecified (E07.9) Active confirmed Disorder of thyroid gland (85499360) Problem Palpitations (R00.2) Active confirmed 85060171 Problem Pulmonary emphysema, unspecified emphysema type (J43.9) Active confirmed 36228822 Problem Obstructive sleep apnea (G47.33) Active confirmed 17277712 Problem Reactive depression (F32.9) Active confirmed 09617798 Problem Nonintractable episodic headache, unspecified headache type (R51) Active confirmed 89547957 Problem Thyroid cyst (E04.1) Active confirmed 73450787 VITAL SIGNS Blood pressure diastolic 60 mm Hg 09/02/2024 Height 68.25 in 09/02/2024 Blood pressure systolic 112 mm Hg 09/02/2024 Weight 216 lbs 09/02/2024 BMI 32.60 kg/m2 09/02/2024 Encounters Encounter Location Date Provider Diagnosis Roberto Chaudhary DO, [facility] [address], [place] [phone] 12/05/2023 Roberto Chaudhary DO, [facility] [address], [place] [phone] 07/22/2024 Roberto Chaudhary DO, [facility] [address], [place] [phone] 09/02/2024 Roberto Chaudhary Encounter for [facility] adult medical examination without abnormal findings Z00.00 Roberto Chaudhary DO, [facility] [address], [place] [phone] 03/26/2024 Roberto Chaudhary Infraclavicular lymphadenopathy R59.0 and Wheezing R06.2 Roberto Proctor Jet , [address] [id number] 03/26/2024 Roberto Chaudhary , [address] [id number] 04/09/2024 Roberto Chaudhary Infraclavicular lymphadenopathy R59.0 Roberto Proctor Jet [facility], [address] [id number] 07/22/2024 Roberto Chaudhary Pulmonary emphysema, unspecified emphysema type J43.9 and Thyroid cyst E04.1 Roberto Hitesh Jet [facility], [address] [id number] 09/17/2024 Roberto Chaudhary Right wrist pain M25.531 Roberto Proctor Jet [facility], [address] [id number] 09/23/2024 Roberto Chaudhary Roberto Proctor Jet [place], [address] [phone] 12/21/2023 Roberto Jet Roberto Proctor Jet [facility], [address] [id number] 12/28/2023 Roberto Chaudhary Subacute cough R05.2 ASSESSMENTS Encounter Date Diagnosis Assessment Notes Treatment Notes Treatment Clinical Notes 09/02/2024 Encounter for genera l adult medical examination without abnormal findings (ICD-10 - Z00.00) 03/26/2024 Wheezing (ICD-10 - R06.2) 03/26/2024 Infraclavicular lymphadenopathy (ICD-10 - R59.0) 04/09/2024 Infraclavicular lymphadenopathy (ICD-10 - R59.0) 07/22/2024 Pulmonary emphysema, unspecified emphysema type (ICD-10 - J43.9) 09/17/2024 Right wrist pain (ICD-10 - M25.531) 12/28/2023 Subacute cough (ICD- 10 - R05.2) Courtney is improving, and will give herself some time to see if her symtoms completely resolve. If they don't, an ICS or montelukast could be trialed 07/22/2024 Thyroid cyst (ICD-10 - E04.1) PLAN OF TREATMENT Pending Test Test Name Order Date US thyroid 07/22/2024 XR wrist RT min 3V 09/17/2024 Next Appt Details Provider Name:Roberto Magaña amrit, 09/09/2025 09:00:00 AM, [address] [place] [address], [place], [place], [phone], Insurance Providers Payer Name Payer Address Payer Phone Subscriber Number Group Number Insured Name Patient Relationship to Insured Coverage Start Date Coverage End Date [facility] [address] [place], [place] [phone] [id number] Courtney Garcia Self - patient is the insured MEDICAL (GENERAL) HISTORY Medical History History ICD Code obstructive sleep apnea osteoarthritis Reactive depression F32.9 Palpitations R00.2 Nonintractable episodic headache, unspec ified headache type R51 Subacute cough R05.2 Surgical History Surgery Date(Month/Year) tonsillectomy wisdom teeth extraction
--- OUTSIDE RECORDS SUMMARY | 2024-10-27 09:17 | XMS_ITS ---
Author Organization [facility] Address [address] [place] [phone] Care Team Providers Care Supervisor Sign Shop Name Role Phone Robetro Chaudhary Primary Care Provider Po Sav PILLAI Unavailable Unavailable REASON FOR VISIT Needs call back from MD Encounters Encounter Location Date Provider Diagnosis Roberto Chaudhary DO, FACP [address] [place] [phone] 09/23/2024 Roberto Chaudhary PLAN OF TREATMENT Next Appt Details Provider Name:Roberto marcus, 09/09/2025 09:00:00 AM, [address] [place] [address], [phone],
--- OUTSIDE RECORDS SUMMARY | 2024-10-27 09:17 | XMS_ITS ---
Author Organization Roberto Chaudhary DO FACP Address [address] [place], [place] [id number] Care Team Providers Care Polish Maker Name Role Phone Jet Roberto Primary Care Provider Po Sav PILLAI Unavailable Unavailable ALLERGIES Allergen (clinical drug ingredient) Drug/Non Drug Allergy documented on EMR Reaction Allergy Type Onset Date Status Penicillin childhood reaction Drug Allergy Active REASON FOR REFERRAL Reason PARADI TENDER examination Diagnosis 1 Encounter for genera l adult medical examination without abnormal findings (Z00.00) Referral Organization Roberto Isidro FACP Referring Provider First Name Roberto Referring Provider Last Name Jet Referring Provider Speciality Internal edicine Referred Provider Jerrod Whyte Referred Provider Specialty OB - Gynecol ogy General Notes Page,Zhanna 4 04:31:06 PM EDT > Referral faxed prior to scheduling Referral Priority Routine Reason Nasal obstruction Diagnosis 1 Encounter for genera l adult medical examination without abnormal findings (Z00.00) Referral Organization Roberto Isidro FACP Referring Provider First Name Roberto Referring Provider Last Name Jet Referring Provider Speciality Internal edicine Referred Provider Christopher Nicole Referred [...] Referring Provider Javi Name Jet Referring Provider Speciality Internal edicine Referred Provider Virgen Prieto Referred Provider Specialty Orthopedic S urgery Referral Priority Routine REASON FOR VISIT annual visit SOCIAL HISTORY Tobacco Use: Social History Observation [...] Never (0 point) Points 1 Interpretation Negative VITAL SIGNS BMI 32.60 kg/m2 09/02/2024 Blood pressure systolic 112 mm Hg 09/02/20 24 Blood pressure diastolic 60 mm Hg 024 Height 68.25 in 09/02/2024 Weight 216 lbs 09/02/2024 Encounters Encounter Location Date Provider Diagnosis Roberto Marc Jet DO, FACP [address] [place], [place] [phone] 09/02/2024 Roberto Chaudhary Encounter for genera l adult medical examination without abnormal findings Z00.00 ASSESSMENTS Encounter Date Diagnosis Assessment Notes Treatment Notes Treatment Clinical Notes 09/02/2024 Encounter for general adult medical examination without abnormal findings (ICD-10 - Z00.00) PLAN OF TREATMENT Referrals Referral Date Details PARADI TENDER examination, Mar c Zerbe Nasal obstruction, R am Singh Malladi Right shoulder pain Right wrist pain, Virgen Prieto Next Appt Details Follow Up: 1 Year, Reason: H &P Provider Name:Roberto Proctor Blaisemarc amrit, 09/09/2025 09:00:00 AM, [address] [place], [place], [phone], Progress Notes * Examination Category Sub-Category Detail Notes General Examination GENERAL APPEARANCE: well dev eloped, well nourished, in no acute distress HEAD: normocephalic, atrau matic EYES: sclera non-icteric NECK/THYROID: neck supple, full ra nge of motion, no cervical lymphadenopathy, thyroid normal, no carotid bruit HEART: regular rate and rhy thm, S1, S2 normal, no murmurs LUNGS: clear to auscultatio n bilaterally ABDOMEN: soft, nontender, non distended, bowel sounds present, normal NEUROLOGIC: nonfocal, motor stre ngth normal upper and lower extremities, sensory exam intact SKIN: warm and dry EXTREMITIES: no clubbing, cyanosi s, or edema PERIPHERAL PULSES: 2+ dorsalis pedis, 2 + posterior tibial PSYCH: alert, oriented, cog nitive function intact History and Physical Notes * HPI (History of Present Illness) Category Sub-Category Detail Notes Depression Screening PHQ-9 Little inte rest or pleasure in doing things: Not at all Feeling down, depressed, or hopeless: No t at all Trouble falling or staying asleep, or sl eeping too much: Not at all Feeling tired or having little energy: N ot at all Poor appetite or overeating: Not at all Feeling bad about yourself o r that you are a failure, or have let yourself or your family down: Not at all Trouble concentrating on thi ngs, such as reading the newspaper or watching television: Not at all Moving or speaking so slowly that other people could have noticed; or the opposite, being so fidgety or restless that you have been moving around a lot more than usual: Not at all Thoughts that you would be b nasim off or of hurting yourself in some way: Not at all Total Score: 0 Interpretation and Intervention Depression Antonio gomes Findings: Negative Follow-Up for Depression: : Review of PH Q-9 found negative result; no follow-up needed Fall Risk Fall History Have you had two or more fal ls in the past year?: No Have you had any falls with injury in th e past year?: No Fall Risk Assessment:: No falls in the p ast year Communication Needs PCMH Communication Needs - PCM He aring Impairment?: No Vision Impairment?: Yes wears glasses/co ntact lenses for distance Cognitive Impairment?: No SDOH Questions SDOH Questions In the past year have you been worried about losing your housing?: No In the past year have you or any family members you live with been unable to get any of the following when it was really needed? Check all that apply:: None Consultation Request Notes Referral Date Referring Provider Referred Provider Not 09/02/2024 Roberto Chaudhary Marc PARADI TENDER examinat ion 09/02/2024 Roberto Chaudhary Ram Gopal Nasal obstruction 09/02/2024 Roberto Chaudhary Allison Right s [facility] pain Right wrist pain
--- OUTSIDE RECORDS SUMMARY | 2024-10-27 09:17 | XMS_ITS ---
Author Organization Roberto Chaudhary DO, FACP Address [address] [place], [place] [id number] Care Team Providers Care Spa Host Name Role Phone JetRoberto Primary Care Provider Sav Dunn MD Unavailable Unavailable REASON FOR VISIT Message Encounters Encounter Location Date Provider Diagnosis Roberto Chaudhary DO [address] [phone] 09/17/2024 Roberto Chaudhary Right wrist pain M25.531 ASSESSMENTS Encounter Date Diagnosis Assessment Notes Treatment Notes Treatment Clinical Notes 09/17/2024 Right wrist pain (ICD-10 - M25.531) PLAN OF TREATMENT Pending Test Test Name Order Date XR wrist RT min 3V 09/17/2024 Next Appt Details Provider Name:Roberto marcus, 09/09/2025 09:00:00 AM, [address] [place] [address], [id number],
[2024-10-27 09:23] VITALS: BMI 31.7
== END 2024-10-27 09:59 | disposition home or self-care (01) ==
PROVIDERS: PCP Internal Medicine
DX: M65.4 Radial styloid tenosynovitis [de Quervain] (principal)
CPT/HCPCS: 20550; 99203

== ENCOUNTER → 2024-10-28 15:44 | Outpatient (REF) | payer BC, SELFPAY | LOC: HO.SL 15:44 | PROVIDERS: PCP Internal Medicine; Visit Provider Internal Medicine | DX: G47.33 Obstructive sleep apnea (adult) (pediatric) (principal); R40.0 Somnolence; E66.9 Obesity, unspecified | CPT/HCPCS: 95806 ==

== ENCOUNTER → 2024-10-28 15:52 | Outpatient (BNV) | payer BC, SELFPAY | PROVIDERS: PCP Internal Medicine; Visit Provider Internal Medicine | DX: G47.33 Obstructive sleep apnea (adult) (pediatric) (principal) | CPT/HCPCS: 95806 ==

== ENCOUNTER 2024-11-19 15:22 | Outpatient (AMB) | payer BC, SELFPAY ==
--- NOTE | 2024-11-19 15:29 | MHC.OFFVIS ---
Vital Signs 11/19/24 15:30 Height 5 ft 9 in Weight 218 lb 4.122 oz BMI 32.2 BP 102/60 Blood Pressure Location Lt brachial Position Sitting Pulse 91 Pulse Source Pulse Oximeter Pulse Oximetry (%) 95 Oxygen Delivery Method Room Air Intake Visit Reasons: COPD Intake Note: pt is here for follow up of sleep study Carpet Winder Required: No Allergies Penicillins Allergy (Intermediate, Verified 11/19/24 16:34) RASH Medication List - Last Reconciled 11/19/24 by Tina Vergara MD No Known Home Meds Do you need a note to return to daycare/school/sports/work: No HPI HPI COPD: Details: THIS 56 YEARS OLD VERY PLEASANT FEMALE IS A KNOWN CASE OF MODERATE OBESITY AND OBSTRUCTIVE SLEEP APNEA FOR THE LAST MANY YEARS. WE HAVE A SLEEP STUDY FROM 2008 WHICH SHOWED MODERATELY SEVERE OBSTRUCTIVE SLEEP APNEA . TOTAL SLEEP TIME RDI 8.2 AND REM SLEEP RDI 40.3 OVER THE PAST MANY YEARS SHE HAS TRIED TO USE CPAP MASK, MOSTLY NASAL, EVEN WITH THE CHIN STRAP, BUT HAS NOT BEEN ABLE TO TOLERATE. SHE FEELS CLAUSTROPHOBIC WITH ANY FULL FACE OR EVEN NASAL MASK. SHE HAS NOT USE THE CPAP FOR THE PAST 2-3 YEARS. REMAINS QUITE SYMPTOMATIC. SHE HAD COME TO EXPLORE OTHER MODES OF TREATMENT, ESPECIALLY INTERESTED IN INSPIRE THERAPY, SHE HAS SEEN IT IN THE ADDS ON TELE VIA. AFTER FULL DISCUSSION HE DECIDED TO GO AHEAD AND DO ANOTHER SLEEP STUDY , WHICH SHE HAS UNDERTAKEN. SHE IS HERE TO DISCUSS ABOUT THE RESULTS AND FURTHER PLAN. [facility]MERLY [facility], [facility] Medical History (Updated 11/19/24 @ 16:46 by Tina Vergara MD) Nocturnal hypoxemia Somnolence, daytime Retrognathia Solitary thyroid nodule YASMANY (obstructive sleep apnea) Obesity (BMI 30-39.9) Sleep apnea Migraine Surgical History Hx of tonsillectomy Family History Mother Colon cancer Father Colon cancer Social History Alcohol intake: current Alcohol intake frequency: holidays/special occasions only Patient Tobacco Use Status: Never used Tobacco Current occupational status: employed Female Reproductive History Menstrual Age of Menarche: 14 Review of Systems Const All systems reviewed & are unremarkable except as noted in HPI and below Eyes Reports no additional complaints ENT Reports no additional complaints Card Denies chest pain, Denies irregular heart rhythm and Denies leg edema Resp Reports no additional complaints GI Reports no additional complaints Reports no additional complaints Musc Reports no additional complaints Skin/Breast Reports system reviewed and no additional complaints, except as documented Neuro Reports no additional complaints Psych Reports no additional complaints Endo Reports no additional complaints Physical Exam Vital Signs: Last Vital Signs Pulse 91 11/19/24 15:30 BP 102/60 11/19/24 15:30 Pulse Ox 95 11/19/24 15:30 Oxygen Delivery Method Room Air 11/19/24 15:30 BMI result Body Mass Index 32.2 Const General: healthy appearing (EXCEPT FOR BEING OVERWEIGHT), comfortable, no acute distress, alert and awake Orientation/consciousness: patient oriented x3 HEENT Head: Yes normal to inspection General nose exam: No nasal polyps present and No nasal discharge present Face and sinus: Yes sinuses nontender Mouth: oropharynx abnormals (MODERATELY NARROW AND CROWDED, MALLAMPATI CLASS 3) Teeth and gingiva: other (RETROGANTHIA OF THE LOWER JAW) Throat: Yes posterior oropharynx normal Eyes General: appearance normal, both eyes and all related structures Neck Neck: Yes normal visual inspection, Yes no lymphadenopathy, Yes trachea midline and Yes no JVD Thyroid: Thyroid normal Chest Chest palpation & inspection: normal inspection of the chest, normal palpation of entire chest wall and no tenderness Resp Effort & Inspection: normal respiratory effort Auscultation: clear to auscultation bilaterally, no crackles and no wheezes Cardio Palpation: normal PMI Rate: regular rate Rhythm: regular rhythm Heart sounds: no gallops and no murmurs Peripheral pulses: Peripheral pulses 2+ throughout GI Palpation (GI): Soft to palpation, nontender, No hepatosplenomegaly present and no masses Auscultation: normal bowel sounds Back/Spine/Pelvis Thoracic/Lumbar Spine: thoracic and lumbar spine normal to inspection Skin General skin exam: no rashes or lesions noted Neuro General: patient oriented x3 and no focal motor deficits Cranial nerves: Yes CN's II-XII intact bilaterally Extrem General: Yes normal to inspection, Yes no clubbing, cyanosis or edema and Yes no calf tenderness Psych Appearance: grossly normal and well kempt Speech and movement: Normal speech and movement present Results Reviewed Results Reviewed: HOME-BASED SLEEP STUDY ON 10/28/2024, . RESULTS ARE REVIEWED WITH THE PATIENT TOTAL SLEEP TIME AHI 14.6 MOST OF THE SLEEP WAS IN SUPINE POSITION, SNORING FOR 31 % OF THE SLEEP TIME. MINIMUM O2 SAT 77 AND O2 SAT BELOW 88% FOR 14 MINUTES. Assessment & Plan Assessment & Plan (1) Retrognathia: Comment: PATIENT WAS ASKING ABOUT WHAT ARE THE REASONS FOR A SLEEP APNEA. I EXPLAINED TO HER ABOUT RETROGANTHIA OF THE LOWER JAW AND BEING OVERWEIGHT, Code(s): M26.19 - Other specified anomalies of jaw-cranial base relationship Category: Medical Plan: SHE UNDERSTANDS WELL ABOUT, HER WEIGHT ISSUE AND THIS CHRONIC RENNY DENTAL DEFORMITY. (2) YASMANY (obstructive sleep apnea): Comment: THE HOME-BASED SLEEP STUDY CONFIRMS THAT SHE HAS MILD TO MODERATELY SEVERE OBSTRUCTIVE SLEEP APNEA. SHE HAS SIGNIFICANT DEGREE OF SNORING. SHE ALSO HAS MILD NOCTURNAL HYPOXEMIA. Code(s): G47.33 - Obstructive sleep apnea (adult) (pediatric) Category: Medical Plan: TREATMENT OPTIONS ARE DISCUSSED IN DETAIL. SHE DOES PROBLEM OF CLAUSTROPHOBIA, BUT ALSO CAN NOT USE THE NASAL MASK. BEFORE SHE CAN BE REFERRED FOR INSPIRE, WE HAVE TO TRY USING THE CPAP ONCE AGAIN. TO OVERCOME CLAUSTROPHOBIC FEELING, I HAVE ADVISED HER THE FOLLOWING: TRY TO PUT THE MASK ON DURING DAYTIME WHEN AWAKE, TO GET USED TO IT. WILL ORDER CPAP WITH FULLFACE MASK . TRY TO USE SMALL DOSE OF LORAZEPAM 0.5 MG BEFORE PUTTING ON THE MASK AT NIGHT. THIS WILL BE JUST IN THE BEGINNING AND LATER ON HOPEFULLY SHE WILL BE ABLE TO GO TO SLEEP WITH THE MASK ON WITH OUT USING SEDATION. AFTER GOOD TRIAL, IF SHE FAILS, THEN DEFINITELY SHE WOULD BE REFERRED FOR, HYPOGLOSSAL NERVE STIMULATION DEVICE ( INSPIRE ) (3) Obesity (BMI 30-39.9): Comment: PATIENT IS MODERATELY OBESE, WEIGHT HAS REMAINED STABLE OVER THE PAST FEW YEARS. Code(s): E66.9 - Obesity, unspecified Category: Medical Plan: SHE SHOULD TRY TO KEEP HER WEIGHT IN CONTROLLED BUT I THINK EVEN IF SHE DOES LOSE SOME WEIGHT SHE WILL STILL BE LEFT WITH SLEEP APNEA (4) Nocturnal hypoxemia: Comment: SHE HAS MILD DEGREE OF NOCTURNAL HYPOXEMIA AND THIS IS DEFINITELY DUE TO SLEEP-RELATED HYPOVENTILATION. Code(s): G47.34 - Idiopathic sleep related nonobstructive alveolar hypoventilation Category: Medical Plan: HER SLEEP APNEA IS TREATED THE NOCTURNAL HYPOXEMIA WOULD ALSO RESOLVE. ONCE SHE IS USING THE CPAP THERAPY REGULARLY WE CAN DO OVERNIGHT OXIMETRY RECORDING TO MAKE SURE THAT HYPOXEMIA IS CORRECTED. Medications: New lorazepam 0.5 mg PO BEDTIME 2 weeks PRN 14 tabs 2RF anxiety Coding Level of Care Code Est Pt Level 3 (60121) Diagnoses Retrognathia M26.19 YASMANY (obstructive sleep apnea) G47.33 Obesity (BMI 30-39.9) E66.9 Nocturnal hypoxemia G47.34
[2024-11-19 15:30] VITALS: BP 102/60; PULSE 91; O2SAT 95; BMI 32.2
== END 2024-11-19 15:56 | disposition home or self-care (01) ==
PROVIDERS: PCP Internal Medicine; Visit Provider Internal Medicine
DX: M26.19 Other specified anomalies of jaw-cranial base relationship (principal); G47.33 Obstructive sleep apnea (adult) (pediatric); E66.9 Obesity, unspecified; G47.34 Idiopathic sleep related nonobstructive alveolar hypoventilation
CPT/HCPCS: 99213

== ENCOUNTER → 2024-11-19 15:22 | Outpatient (BNVA) | payer BC, SELFPAY | PROVIDERS: PCP Internal Medicine; Visit Provider Internal Medicine ==

== ENCOUNTER 2024-12-08 14:52 | Outpatient (AMB) | payer BC, SELFPAY ==
[2024-12-08 14:57] VITALS: BMI 32.2
--- NOTE | 2024-12-08 14:57 | MHC.OFFVIS ---
Vital Signs 12/08/24 14:57 Height 5 ft 9 in Weight 218 lb BMI 32.2 Intake Visit Reasons: OV- RT wrist f/u Intake Note: Courtney is a 59 year old right hand dominant female who presents today for a follow up of her right wrist pain. Patient received a right De Quervain injection at her last visit,10/27/2024, however she feels it only helped for that day. She feels her pain has worsened. She continues to wear her comfort cool brace as much as she can. Allergies Penicillins Allergy (Intermediate, Verified 12/08/24 14:57) RASH HPI HPI OV- RT wrist f/u: Details: Courtney is a 59 year old right hand dominant female who presents today for a follow up of her right wrist pain. Patient received a right De Quervain injection at her last visit,10/27/2024, however she feels it only helped for that day. She feels her pain has worsened. She continues to wear her comfort cool brace as much as she can. Denies numbness or tingling. [facility] Medical History (Updated 12/08/24 @ 15:22 by RODO Márquez) Nocturnal hypoxemia Somnolence, daytime Retrognathia Solitary thyroid nodule YASMANY (obstructive sleep apnea) Obesity (BMI 30-39.9) Sleep apnea Migraine Surgical History Hx of tonsillectomy Family History Mother Colon cancer Father Colon cancer Social History Alcohol intake: current Alcohol intake frequency: holidays/special occasions only Patient Tobacco Use Status: Never used Tobacco Current occupational status: employed Female Reproductive History Menstrual Age of Menarche: 14 Review of Systems Const All systems reviewed & are unremarkable except as noted in HPI and below Physical Exam Vital Signs: BMI result Body Mass Index 32.2 Extrem Other: Patient is alert, oriented, and in no acute distress. Neuro: Normal sensation of the tips of all digits of the right hand at this time Vascular: Cap refill brisk Pain: Tenderness to palpation of the right radial styloid radiating up into the forearm Positive Angus on the right Negative Angus on the left No tenderness to palpation of the DRUJ, ulnar styloid, or elsewhere in the right hand or wrist Negative CMC grind on the right No tenderness to palpation of the MCP joint of the right thumb ROM: Patient is able to make a closed fist and extend all digits of the right hand fully Skin: No lacerations or abrasions. General: No ecchymosis, erythema, or evidence of infection. Psych: Appears grossly normal Affect normal Attitude cooperative Assessment & Plan Assessment & Plan (1) Arthritis of both hands: Code(s): M19.041 - Primary osteoarthritis, right hand; M19.042 - Primary osteoarthritis, left hand Category: Medical (2) De Quervain's tenosynovitis, right: Code(s): M65.4 - Radial styloid tenosynovitis [de Quervain] Category: Medical Plan 1. De Quervain tenosynovitis, right I educated the patient about the condition. I discussed both operative and nonoperative treatment options. The patient would like to proceed with surgery. The risks and benefits of operative treatment were discussed with the patient and the patient wishes to proceed with surgery. These risks include, but are not limited to, risk of damage to blood vessels, nerves, tendons, infection, recurrence, incomplete relief of preoperative symptoms, persistent pain, possible need for further surgery, and the risks associated with regional blocks and/or anesthesia. Plan is to take the patient to the operating room at some point in the next few weeks for the following procedures: 1. Right 1st dorsal compartment release under local All of the preoperative paperwork including the consent was discussed today. All of the patient's questions were answered in the clinic today. The patient understands that they will be in contact with our surgical nurse to discuss scheduling their procedure. Patient denies diabetes, blood thinners, asthma, heart issues, lung issues, kidney issues, or current smoking. Orders: Orders OT Evaluation and Treatment Today M19.041 - Primary osteoarthritis, right hand, M19.042 - Primary osteoarthritis, left hand Coding Level of Care Code Est Pt Level 4 (43988) Diagnoses Arthritis of both hands M19.041; M19.042 De Quervain's tenosynovitis, right M65.4
--- OUTSIDE RECORDS SUMMARY | 2024-12-08 19:10 | XMS_ITS ---
Author Organization Roberto Chaudhary DO, FACP Address [address] [facility] [id number] Care Team Providers Care Archeology Professor Name Role Phone Roberto Chaudhary Primary Care Provider Po Sav PILLAI Unavailable Unavailable REASON FOR VISIT Needs call back from MD Encounters Encounter Location Date Provider Diagnosis Roberto Chaudhary DO FACP [address] [place] [phone] 09/23/2024 Roberto Chaudhary PLAN OF TREATMENT No Information
--- OUTSIDE RECORDS SUMMARY | 2024-12-08 19:10 | XMS_ITS | Clinical Summary ---
Author Organization [facility] [employer] Address [address] [facility] [place] [address] Care Team Providers Care Outreach Manager Name Role Phone Roberto Chaudhary DO Primary Care Provider [phone] Immunizations Name Administration Dates Next Due Boostrix (Tdap) Prefilled Syringe 06/18/2021 Engerix-B Adult Prefilled Syringe 02/10/2022, MMR Single Dose Vial 06/25/2021 Social History Tobacco Use Types Packs/Day Years Used Date Smoking Tobacco: Never Assessed Comments Unknown Sex and Gender Information Value Date Recorded Sex Assigned at Not on file Legal Sex Female 10:13 AM EDT Gender Identity Not on file Sexual Orientation Not on file Plan of Treatment Health Maintenance Due Date Last Done Comments Colorectal Cancer: COLONOSCO PY Screening every 10 yrs (or Modifier) 1966 Depression: Screening Annual ly using PHQ-2/9 in Adults 18 yrs or above (or HM Modifier)([facility]) 1984 Hepatitis C Virus Infection in Adolescents and Adults: Screening (or Modifier) ([facility]) 1984 [facility] Screening Reminder: [place] for all adults ([facility]) 1984 Tobacco Smoking Cessation: i n Adults excluding Women: Behavioral and Pharmacotherapy Interventions ([facility]) 1984 Cervical Cancer Screenin 1-65 yrs of age (or Modifier) 1987 Cervical Cancer Screening: P ap every 3 yrs pts age 21-65 1987 Cervical Cancer: Pap Screeni ng with Modifier timing ([facility]) 1987 Cervical Cancer: hrHPV alone or with cotesting Pap for Pts 30-65yrs screening every 5yrs ([facility]) 1987 Colorectal Cancer Screening 45 -75 Yrs (or HM Modifier) 2011 Colorectal Cancer: FLEXIBLE SIGMOIDOSCOPY Screening every 5 yrs 2011 Colorectal Cancer: Fecal Immunochemical Test (FIT) Annually [facility] 2011 Colorectal Cancer: High-sens itivity gFOBT Screening Annually [facility] 2011 Colorectal Cancer: Stool Col oguard Screening every 3 yrs 2011 Colorectal Cancer:CT Colonog antonio Screening every 5 yrs 2011 Lipid Screening: Every 5 yrs for Women aged 45+ (or HM Modifier) ([facility]) 2012 Breast Cancer: Screening Moon ually age 50-74 yrs (or HM Modifier)([facility]) 2016 Zoster/Shingles Vaccine Seri es Screening: Adults aged 18+ yrs (or HM Modifiers)([facility]) (1 of 2) 2016 Flu Vaccination: Yearly for ages 18mos through 64 years (or Modifier)([facility]) 06/12/2024 COVID-19 Vaccine Screening: Initial Series and Booster Status ([facility]) ( - 2023-25 season) 2024 DTaP/Tdap/Td Vaccines ([facility]) (2 - Td or Tdap) 06/18/2031 06/18/2021 Pneumococcal Vaccination Scr eening: Pts 0-19 & 19-64 yrs of age ([facility]) Aged Out No longer eligible b ased on patient's age to complete this topic Medical Devices Not on file Insurance [facility] Care Teams Outreach Manager Relationship Specialty Start Date End Date Roberto Chaudhary DO [address] [place] [phone] PCP - General Internal Medicine 06/18/21
--- OUTSIDE RECORDS SUMMARY | 2024-12-08 19:10 | XMS_ITS ---
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 Diagnosis 1 Encounter for genera l [...] Location Date Provider Diagnosis Roberto Chaudhary DO, [address] [phone] 09/02/2024 Roberto Chaudhary Encounter for genera l adult medical examination without abnormal findings Z00.00 ASSESSMENTS Encounter Date Diagnosis Assessment Notes Treatment Notes Treatment Clinical Notes 09/02/2024 Encounter for general adult medical examination without abnormal findings (ICD-10 - Z00.00) PLAN OF TREATMENT Referrals Referral Date Details OPEN END SPINNING OPERATOR examination, Mar c Zerbe Nasal obstruction, R am Singh Malladi Right shoulder pain Right wrist pain, Virgen Prieto Next Appt Details Follow Up: 1 Year, Reason: H &P Progress Notes * Examination Category Sub-Category Detail [...] Total Score: 0 Interpretation and Intervention Depression Randale mireya Findings: Negative Follow-Up for Depression: : Review of PH Q-9 found negative result; no follow-up needed Fall Risk Fall History Have you had two or more fal ls in the past year?: No Have you had any falls with injury in th e past year?: No Fall Risk Assessment:: No falls in the p ast year Communication Needs [facility] Communication Needs - [facility] ari Impairment?: No Vision Impairment?: Yes wears glasses/co [...] Referral Date Referring Provider Referred Provider Not es 09/02/2024 Roberto Chaudhary Marc OPEN END SPINNING OPERATOR examinat ion 09/02/2024 Roberto Chaudhary Ram Singh Nasal obstruction 09/02/2024 Roberto Chaudhary Allison Right s houlder pain Right wrist pain
--- OUTSIDE RECORDS SUMMARY | 2024-12-08 19:10 | XMS_ITS ---
Author Organization Roberto Chaudhary DO, FACP Address [address] [place], [place] [id number] Care Team Providers Care Cmo Name Role Phone Roberto Chaudhary Primary Care Provider Sav Dunn MD Unavailable Unavailable REASON FOR VISIT Message Encounters Encounter Location Date Provider Diagnosis Roberto Chaudhary DO [address] [phone] 09/17/2024 Roberto Chaudhary Right wrist pain M25.531 ASSESSMENTS Encounter Date Diagnosis Assessment Notes Treatment Notes Treatment Clinical Notes 09/17/2024 Right wrist pain (ICD-10 - M25.531) PLAN OF TREATMENT Pending Test Test Name Order Date XR wrist RT min 3V 09/17/2024
--- OUTSIDE RECORDS SUMMARY | 2024-12-08 19:11 | XMS_ITS | Patient Health Record ---
Author Organization Roberto Chaudhary DO, [facility] Address [address] [place] [phone] Care Team Providers Care Bowstring Maker Name Role Phone Jet Roberto Primary Care Provider Sav Dunn MD Unavailable Unavailable ALLERGIES Allergen (clinical drug ingredient) Drug/Non Drug Allergy documented on EMR Reaction Allergy Type Onset Date Status Penicillin childhood reaction Drug Allergy Active RESULTS Component Value Reference Range Notes MM tomosynthesis screening B I Reviewed date:12/26/2023 03:43:47 PM Interpretation:Negative Performing Lab: Notes/Report: [facility]'[address] [place] [address] [place] [address] Mammography Report Signed Patient: Courtney Garcia MR#: [id number] 642 : 1965 Acct:[id number] Age/Sex: 58 / F ADM Date: 12/11/23 Loc: HO.MAMMO Attending Dr: Roberto Chaudhary DO Ordering Physician: Roberto Chaudhary DO Results: 1Negat justine Date of Service: 12/11/23 Follow Up: 1 Year From [facility] Mammogram Procedure(s): MM tomosynthesis screening BI Accession Number(s): [id number] cc: Roberto Chaudhary DO EXAMINATION: MM SCREENING [...] in OV> 12/26/23 0930 DD/ 1605 TD/TT: Student Development Dean: Blood Urea Nitrogen Reviewed date:06/14/2024 11:47:02 AM Interpretation:Normal Performing Lab:[facility], [address] [place] [phone] Notes/Report: Blood Urea Nitrogen 16 9-16 mg/dL Creatinine Reviewed date:06/14/2024 11:47:02 AM Interpretation:Normal Performing Lab:[facility], [address] [place] [phone] Notes/Report: Creatinine 0.75 0.5-1.4 mg/dL Estimated Glomerular Filt Rate > 60 NOTE: For -Danish individuals, multiply the result by 1.210. Chronic Kidney Disease: Estimated GFR < 60 mL/min/1.73m2 Severe Kidney Disease: Estimated GFR < 15 mL/min/1.73m2 CT chest w con Reviewed date:07/22/2024 03:29:24 PM Interpretation:Abnormal Performing Lab: Notes/Report: [address] [address] [address] Scan Report Signed Patient: Courtney Garcia MR#: [id number] 642 : 1965 Acct:[id number] Age/Sex: 58 / F ADM Date: 06/30/24 Loc: HO.CT Attending Dr: Roberto Chaudhary DO Ordering Physician: Roberto Chaudhary DO Date of Service: 06/30/24 Procedure(s): CT chest w IV con Accession Number(s): [id number] cc: Roberto Chaudhary EXAMINATION: CT CHEST WITH [...] iterative reconstruction technique DLP: 159 mGy-cm FINDINGS: WRAPPING MACHINE OPERATOR: 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 LUNGS: Trachea bronchi are [...] 07/22/24 1337 DD/ 0821 TD/TT: 06/30/24 0835 Student Development Dean: US thyroid Reviewed date:09/03/2024 10:16:32 AM Interpretation:Abnormal Performing Lab: Notes/Report: [address] [address] Ultrasound Report Signed Patient: Courtney Garcia MR#: [id number] 642 : 1965 Acct:[id number] Age/Sex: 58 / F ADM Date: 08/14/24 Loc: HO.US Attending Dr: Roberto Chaudhary DO Ordering Physician: Roberto Chaudhary DO Date of Service: 08/14/24 Procedure(s): US thyroid Accession Number(s): [id number] cc: Roberto Chaudhary DO EXAMINATION: US THYROID [...] than or equal to 1 cm: 1. Package Drier nodules are described as follows: 1. Location: [...] in OV> 09/03/24923 DD/ TD/TT: 08/14/24 0749 Student Development Dean: Complete Blood Count Auto Di ff Reviewed date:09/09/2024 12:39:07 PM Interpretation:Abnormal Performing Lab:[facility], [address] [place] [phone] Notes/Report: White Blood Count 7.9 4.8-10.8 X10*3/uL [...] NRBC Abs Auto 0.000 0.0-0.012 X10*3/uL Comprehensive [place]. Panel Fa st Reviewed date:09/09/2024 01:26:35 PM Interpretation:Normal Performing Lab:[facility], [address] [place] [phone] Notes/Report: Sodium 142 135-145 mmol/L Potassium 4.1 3.3-5.1 mmol/L Chloride 107 96-108 mmol/L Carbon Dioxide 26 22-29 mmol/L Anion Gap 13 12-20 Blood Urea Nitrogen 13 9-16 mg/dL Creatinine 0.75 0.5-1.4 mg/dL Estimated Glomerular Filt Rate > 60 NOTE: For -Danish individuals, multiply the result by 1.210. Chronic [...] Panel Reviewed date:09/09/2024 02:20:23 PM Interpretation:Abnormal Performing Lab:[address] [address] Notes/Report: Triglycerides 92 <150 mg/dL Desirable Triglyceride: [...] Total Reviewed date:09/09/2024 01:26:35 PM Interpretation:Normal Performing Lab:[address] [address] Notes/Report: Vitamin D 25-OH Total 32.3 >30 [...] Hormone Reviewed date:09/09/2024 01:26:35 PM Interpretation:Normal Performing Lab:[facility], [address] [place] [address] Notes/Report: Thyroid Stimulating Hormone 1.95 0.32-4.0 uIU/ mL TSH 3rd Generation ([facility]) Pathology Reviewed date:09/19/2024 03:39:17 PM Interpretation:Non-diagnostic Performing Lab:[facility], [address] [place] [phone] Notes/Report: REASON FOR REFERRAL Reason Emphysema Abnormal C hest CT Scan Diagnosis 1 Pulmonary emphysema, unspecified emphysema type (J43.9) Referral Organization Roberto Isidro FACP Referring Provider First Name Roberto Referring Provider Last Name Jet Referring Provider [facility] Internal edicine Referred Provider Gavin Kellogg Referred Provider Specialty Pulmonary Di seases General Notes Page,Zhanna 4 03:59:39 PM EDT > Referral faxed prior to scheduling Referral Priority Routine Reason FACER OPERATOR examination Diagnosis 1 Encounter for genera l adult medical examination without abnormal findings (Z00.00) Referral Organization Roberto Isidro FACP Referring Provider First Name Roberto Referring Provider Javi Name Jet Referring Provider [facility] Internal edicine Referred Provider Jerrod Whyte Referred Provider Specialty OB - Gynecol ogy General Notes Page,Zhanna 4 04:31:06 PM EDT > Referral faxed prior to scheduling Referral Priority Routine Reason Nasal obstruction Diagnosis 1 Encounter for genera l adult medical examination without abnormal findings (Z00.00) Referral Organization Roberto Isidro FACP Referring Provider First Name Roberto Referring Provider Javi Name Jet Referring Provider [facility] Internal edicine Referred Provider Christopher Nicole Referred [...] Referring Provider Last Name Jet [facility] Referred Provider Virgen Prieto Referred Provider Specialty Orthopedic S urgery Referral Priority Routine Reason Thyroid nodule Diagnosis 1 Disorder of thyroid, unspecified (E07.9) Referral Organization Roberto Isidro FACP Referring Provider First Name Roberto Referring Provider Last Name Jet Referring [facility] Referred Provider Heide Desir Referred Provider Specialty Endocrinolog y General Notes Mikki Solares 024 10:50:06 AM EDT > referral faxed; patient notified., Mikki Solares 09/03/2024 01:41:12 PM EDT > referral faxed manually., Zhanna Hill 09/08/2024 10:26:40 AM EDT > Niki at [facility]o ask we fax referral and notes to [phone] Referral Priority Routine Referral Appointment Date 09/09/2024 Reason Right wrist pain Diagnosis 1 Right wrist pain (M2 5.531) Referral Organization Roberto Isidro FACP Referring Provider First Name Roberto Referring Provider Javi Name Jet Referring Provider [facility] Internal edicine Referred Provider Virgen Prieto Referred [...] (E07.9) Active confirmed Disorder of thyroid gland (72323810) Problem Palpitations (R00.2) Active confirmed 82486251 Problem Pulmonary emphysema, unspecified emphysema type (J43.9) Active confirmed 49374222 Problem Obstructive sleep apnea (G47.33) Active confirmed 23397781 Problem Reactive depression (F32.9) Active confirmed 54557743 Problem Nonintractable episodic headache, unspecified headache type (R51) Active confirmed 66601838 Problem Thyroid cyst (E04.1) Active confirmed 95106163 VITAL SIGNS Blood pressure diastolic 60 mm Hg 09/02/2024 Height 68.25 in 09/02/2024 Blood pressure systolic 112 mm Hg 09/02/2024 Weight 216 lbs 09/02/2024 BMI 32.60 kg/m2 09/02/2024 Encounters Encounter Location Date Provider Diagnosis Roberto Chaudhary DO [facility] [address] [place], [place] [phone] 07/22/2024 Roberto Chaudhary DO [facility] [address] [place], [place] [phone] 09/02/2024 Rboerto Chaudhary Encounter for genera l adult medical examination without abnormal findings Z00.00 Roberto Chaudhary DO [address] [id number] 03/26/2024 Roberto Chaudhary Infraclavicular lymphadenopathy R59.0 and Wheezing R06.2 Roberto Chaudhary DO [facility] [address] [place], [place] [phone] 03/26/2024 Roberto Chaudhary DO, [facility] [address] [place], [place] [phone] 04/09/2024 Roberto Chaudhary Infraclavicular lymphadenopathy R59.0 Roberto Chaudhary DO, [address] [id number] 07/22/2024 Roberto Chaudhary Pulmonary emphysema, unspecified emphysema type J43.9 and Thyroid cyst E04.1 Roberto Chaudhary , [address] [id number] 09/17/2024 Roberto Chaudhary Right wrist pain M25.531 Roberto Chaudhary DO, [address] [id number] 09/23/2024 Roberto Chaudhary , [address] [id number] 12/21/2023 Roberto Chaudhary DO, [address] [id number] 12/28/2023 Roberto Chaudhary Subacute cough R05.2 ASSESSMENTS [...] 07/22/2024 XR wrist RT min 3V 09/17/2024 Insurance Providers Payer Name Payer Address Payer Phone Subscriber Number Group Number Insured Name Patient Relationship to Insured Coverage Start Date Coverage End Date [facility] [address] [place], [place] [phone] [id number] Courtney Garcia Self - patient is the insured MEDICAL (GENERAL) HISTORY Medical History History ICD Code obstructive sleep apnea osteoarthritis Reactive depression F32.9 Palpitations R00.2 Nonintractable episodic headache, unspec ified headache type R51 Subacute cough R05.2 Surgical History Surgery Date(Month/Year) tonsillectomy wisdom teeth extraction
--- OUTSIDE RECORDS SUMMARY | 2024-12-08 19:11 | XMS_ITS ---
Author Organization [facility] Address [address] [place] [address] Care Team Providers Care Office Manager Executive Assistant Name Role Phone Roberto Chaudhary MD Primary Care Provider Unavail Janet Mukherjeeter Unavailable [phone] Allergies Allergen (clinical drug ingredient) Drug/Non Drug [...] 11/19/2023 Encounters Encounter Location Date Provider Diagnosis [facility] [address] [place] [address] 11/19/2023 Marcellus Lozano Pain in left foot [...] Courtney VIVAS LDOB:[birth year] (58 yo F)Acc No.[id number]:11/19/2023 Progress Notes Patient:?Courtney Vivas L Provider:?Marcellus Lozano DPM :1965???Age:58 Y???Sex:Female D ate:11/19/2023 Address:[address] [place], [place] [address] Pcp:Roberto Chaudhary MD Subjective: * Chief Complaints: [...] 3. ?Marital status: . 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 * Medications:?Not-Taking/PRNA lbuterol Sulfate HFA 108 [...] - S92.515A? Plan: * Treatment: * Procedure Codes:?75101 X-RAY EXAM OF LEFT FOOT 3V, Modifiers: [...] DPM Date:? 024 Generated for Refugio alexis/Shilpi/eTransmitting on:?12/08/2024 07:11 PM EST History and Physical Notes * HPI [...] ORIENTED: person,place, and ti me Vascular DP PULSES (B): 2/4, B/L PT PULSES (B): 2/4, B/L CAPILLARY FILL TIME: 3 secs. per digit, B/L TEMPERTURE GRADIENT (C): warm to cool, p roximal to distal, B/L TROPHIC CONDITION-TEXTURE/ELASTICITY/TURGOR/HAIR GROWTH (B): normal, B/L EDEMA (C): 2/4, Left 4th toe TELANGECTASIA: absent VARICOSITIES: absent PIGMENTATION: normal, B/L X-Rays - IMAGING REPORT Fracture: oblique fracture, transverse fracture, intra-articular extending into joint margin, proximal phalange, T3 with slight comminution Views: 3 views of Foot, LEF T Clinical Indication(s): Evaluate for Fra cture
--- OUTSIDE RECORDS SUMMARY | 2024-12-08 19:11 | XMS_ITS | Patient Health Record ---
Author Organization [facility] [place] Address [address] [facility] [place] [address] Care Team Providers Care Senior Formulation Scientist Name Role Phone Roberto Chaudhary MD Primary Care Provider Unavail Marcellus Mukherjee Unavailable [phone] Allergies Allergen (clinical drug ingredient) Drug/Non Drug [...] ast year? Yes Points 0 Interpretation Negative Plan Of Treatment Pending Test Test Name Order Date X ray : Foot, left 3V 11/19/2023 Insurance Providers Payer Name Payer Address Payer Phone Subscriber Number Group Number Insured Name Patient Relationship to Insured Coverage Start Date Coverage End Date [facility] [address] [facility] [place] [phone] [id number] Courtney Garcia Self - patient is the insured Medical (General) History Medical History History ICD Code Arthritis Broken bones covid-19 Headaches/Migraines Lyme disease Chicken pox Dental implants Surgical History Surgery Date(Month/Year) tonsillectomy 1977
== END 2024-12-08 15:27 | disposition home or self-care (01) ==
PROVIDERS: PCP Internal Medicine
DX: M19.041 Primary osteoarthritis, right hand (principal); M19.042 Primary osteoarthritis, left hand; M65.4 Radial styloid tenosynovitis [de Quervain]
CPT/HCPCS: 99214

== ENCOUNTER 2024-12-10 08:49 | Outpatient (REF) | payer BC, SELFPAY ==
--- NOTE | 2024-12-10 09:22 | PM.PROC ---
Brief Operative Note Date of procedure: 12/10/24 Pre-op diagnosis: left superior mid 1.5 cm thyroid nodule FNA biopsy Procedure: THYROID FINE NEEDLE ASPIRATION PROCEDURE NOTE ? PROCEDURE PERFORMED: Ultrasound-guided FNA of thyroid nodule ? OPERATORS: Dr. Heide Veliz ? INDICATION: left superior mid 1.5 cm thyroid nodule; FNA performed to assess for malignancy ? DESCRIPTION OF PROCEDURE: The indications for FNA (to assess for malignancy) were reviewed with the patient in detail. Potential complications (e.g., bleeding, infection, damage to local structures, absence of clear diagnosis after FNA) were reviewed. Alternatives to FNA including conservative observation or surgery were described. The patient understood and agreed to proceed. This was documented by the signing of the written informed consent form. A time-out was performed to confirm the patient's identity and the site of planned FNA. The nodule of interest was identified using ultrasound (14 MHz linear array probe). The site of FNA was then draped in the usual fashion and carefully cleaned and prepared using alcohol swabs. The skin at the previously-identified site of needle insertion was iced and sprayed with numbing spray. Under ultrasound guidance, _5_ passes were performed using a 1.5-inch, 25-gauge needle, and sample was obtained via capillary action. The needle tip was clearly visualized to be within the nodule at the time of sampling for 4__ of _5_ passes The patient tolerated the procedure well. There were no immediate complications. A small adhesive bandage was applied, and the patient was advised to take acetaminophen (rather than NSAIDs) for any discomfort and to report any signs of inflammation/infection or marked swelling. IMPRESSION: Technically successful ultrasound-guided fine needle aspiration of left superior mid 1.5 cm thyroid nodule. PLAN: The patient was advised that I will provide follow-up regarding the cytology result and any subsequent plans. Heide Veliz MD Endocrinology Attending Condition: stable Disposition: same day
--- OUTSIDE RECORDS SUMMARY | 2024-12-10 09:44 | XMS_ITS ---
Author Organization Roberto Chaudhary DO, FACP Address [address] [place] [phone] Care Team Providers Care Palliative Care Nurse Name Role Phone Roberto Chaudhary Primary Care Provider Po Sav PILLAI Unavailable Unavailable REASON FOR VISIT Needs call back from MD Encounters Encounter Location Date Provider Diagnosis Roberto Chaudhary DO FACP [address] [place] [phone] 09/23/2024 Roberto Chaudhary PLAN OF TREATMENT No Information
--- OUTSIDE RECORDS SUMMARY | 2024-12-10 09:45 | XMS_ITS ---
Author Organization [facility] [place] Address [address] [facility] [address] Care Team Providers Care Recreation Adviser Name Role Phone Roberto Chaudhary MD Primary Care Provider Unavail Janet Mukherjeeter Unavailable [phone] Allergies Allergen (clinical drug ingredient) Drug/Non Drug [...] 11/19/2023 Encounters Encounter Location Date Provider Diagnosis [facility] [address] [facility] [place] [address] 11/19/2023 Marcellus Lozano Pain in left foot [...] Courtney VIVAS LDOB:[birth year] (58 yo F)Acc No.[id number]:11/19/2023 Progress Notes Patient:?Courtney Vivas L Provider:?Marcellus Lozano DPM :1965???Age:58 Y???Sex:Female D ate:11/19/2023 Address:[address] [place], [place] [phone] Pcp:Roberto Chaudhary MD Subjective: * Chief Complaints: [...] 3. ?Marital status: . 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 * Medications:?Not-Taking/PRNA lbuterol Sulfate HFA 108 [...] - S92.515A? Plan: * Treatment: * Procedure Codes:?22498 X-RAY EXAM OF LEFT FOOT 3V, Modifiers: [...] DPM Date:? 024 Generated for Refugio alexis/Shilpi/eTransmitting on:?12/10/2024 09:45 AM EST History and Physical Notes * [...]
--- OUTSIDE RECORDS SUMMARY | 2024-12-10 09:45 | XMS_ITS ---
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 Diagnosis 1 Encounter for genera l [...] Location Date Provider Diagnosis Roberto Chaudhary DO, [address] [id number] 09/02/2024 Roberto Chaudhary Encounter for genera l adult medical examination without abnormal findings Z00.00 ASSESSMENTS Encounter Date Diagnosis Assessment Notes Treatment Notes Treatment Clinical Notes 09/02/2024 Encounter for general adult medical examination without abnormal findings (ICD-10 - Z00.00) PLAN OF TREATMENT Referrals Referral Date Details FACILITY ENVIRONMENTAL TECHNICIAN examination, Mar c Zerbe Nasal obstruction, R [...] in the p ast year Communication Needs [facility] Communication [facility] ari Impairment?: No Vision Impairment?: Yes wears [...] Provider Not es 09/02/2024 Roberto Chaudhary Marc FACILITY ENVIRONMENTAL TECHNICIAN examinat ion 09/02/2024 Roberto Chaudhary Ram Singh Nasal obstruction 09/02/2024 Roberto Chaudhary Allison Right s houlder pain Right wrist pain
--- OUTSIDE RECORDS SUMMARY | 2024-12-10 09:45 | XMS_ITS | Patient Health Record ---
Author Organization [facility] Address [address] [facility] [place] [address] Care Team Providers Care Pipeline Technician Name Role Phone Roberto Chaudhary MD Primary Care Provider Unavail Marcellus Mukherjee Unavailable [phone] Allergies Allergen (clinical drug ingredient) Drug/Non Drug [...] Insured Coverage Start Date Coverage End Date [facility] [address] [facility] [place] [id number] Courtney Garcia Self - patient is the insured Medical (General) History Medical History History ICD Code Arthritis Broken bones covid-19 Headaches/Migraines Lyme disease Chicken pox Dental implants Surgical History Surgery Date(Month/Year) tonsillectomy 1977
--- OUTSIDE RECORDS SUMMARY | 2024-12-10 09:45 | XMS_ITS ---
Author Organization Roberto Chaudhary DO, FACP Address [address] [place], [place] [id number] Care Team Providers Care Monogram Technician Name Role Phone Roberto Chaudhary Primary Care Provider Sav Dunn MD Unavailable Unavailable REASON FOR VISIT Message Encounters Encounter Location Date Provider Diagnosis Roberto Chaudhary DO [address] [id number] 09/17/2024 Roberto Chaudhary Right wrist pain M25.531 ASSESSMENTS Encounter Date Diagnosis Assessment Notes Treatment Notes Treatment Clinical Notes 09/17/2024 Right wrist pain (ICD-10 - M25.531) PLAN OF TREATMENT Pending Test Test Name Order Date XR wrist RT min 3V 09/17/2024
--- OUTSIDE RECORDS SUMMARY | 2024-12-10 09:45 | XMS_ITS | Patient Health Record ---
Author Organization Roberto Chaudhary DO, [facility] Address [address] [place] [phone] Care Team Providers Care Medical Billing Assistant Name Role Phone Jet Roberto Primary Care Provider Sav Dunn MD Unavailable Unavailable ALLERGIES Allergen (clinical drug ingredient) Drug/Non Drug Allergy documented on EMR Reaction Allergy Type Onset Date Status Penicillin childhood reaction Drug Allergy Active RESULTS Component Value Reference Range Notes MM tomosynthesis screening B I Reviewed date:12/26/2023 03:43:47 PM Interpretation:Negative Performing Lab: Notes/Report: [facility]'[address] [place] [address] Mammography Report Signed Patient: Courtney Garcia MR#: [id number] 642 : 1965 Acct:[id number] Age/Sex: 58 / F ADM Date: 12/11/23 Loc: HO.MAMMO Attending Dr: Roberto Chaudhary DO Ordering Physician: Roberto Chaudhary DO Results: 1Negat justine Date of Service: 12/11/23 Follow Up: 1 Year From [facility] Mammogram Procedure(s): MM tomosynthesis screening BI Accession Number(s): [id number] cc: Roberto Chaudhary DO EXAMINATION: MM SCREENING [...] in OV> 12/26/23 0930 DD/ 1605 TD/TT: Floor Layer: Blood Urea Nitrogen Reviewed date:06/14/2024 11:47:02 AM Interpretation:Normal Performing Lab:[facility], [address] [place] [phone] Notes/Report: Blood Urea Nitrogen 16 9-16 mg/dL Creatinine Reviewed date:06/14/2024 11:47:02 AM Interpretation:Normal Performing Lab:[facility], [address] [place] [phone] Notes/Report: Creatinine 0.75 0.5-1.4 mg/dL Estimated Glomerular Filt Rate > 60 NOTE: For -Macanese individuals, multiply the result by 1.210. Chronic Kidney Disease: Estimated GFR < 60 mL/min/1.73m2 Severe Kidney Disease: Estimated GFR < 15 mL/min/1.73m2 CT chest w con Reviewed date:07/22/2024 03:29:24 PM Interpretation:Abnormal Performing Lab: Notes/Report: [address] [address] [address] Scan Report Signed Patient: Courtney Garcia MR#: [id number] 642 : 1965 Acct:[id number] Age/Sex: 58 / F ADM Date: 06/30/24 Loc: HO.CT Attending Dr: Roberto Chaudhary DO Ordering Physician: Roberto Chaudhary DO Date of Service: 06/30/24 Procedure(s): CT chest w IV con Accession Number(s): [id number] cc: Roberto Chaudhary EXAMINATION: CT CHEST WITH [...] iterative reconstruction technique DLP: 159 mGy-cm FINDINGS: 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 LUNGS: Trachea bronchi are patent. [...] 07/22/24 1337 DD/ 0821 TD/TT: 06/30/24 0835 Floor Layer: US thyroid Reviewed date:09/03/2024 10:16:32 AM Interpretation:Abnormal Performing Lab: Notes/Report: [address] [address] Ultrasound Report Signed Patient: Courtney Garcia MR#: [id number] 642 : 1965 Acct:[id number] Age/Sex: 58 / F ADM Date: 08/14/24 Loc: HO.US Attending Dr: Roberto Chaudhary DO Ordering Physician: Roberto Chaudhary DO Date of Service: 08/14/24 Procedure(s): US thyroid Accession Number(s): [id number] cc: Roberto Chaudhary DO EXAMINATION: US THYROID [...] than or equal to 1 cm: 1. Classifications Officer Cc/Cm nodules are described as follows: 1. Location: [...] in OV> 09/03/24923 DD/ TD/TT: 08/14/24 0749 Floor Layer: Complete Blood Count Auto Di ff Reviewed date:09/09/2024 12:39:07 PM Interpretation:Abnormal Performing Lab:[facility], [address] [place] [phone] Notes/Report: White Blood Count 7.9 4.8-10.8 X10*3/uL [...] NRBC Abs Auto 0.000 0.0-0.012 X10*3/uL Comprehensive [place]. Panel Fa st Reviewed date:09/09/2024 01:26:35 PM Interpretation:Normal Performing Lab:[facility], [address] [place] [phone] Notes/Report: Sodium 142 135-145 mmol/L Potassium 4.1 3.3-5.1 mmol/L Chloride 107 96-108 mmol/L Carbon Dioxide 26 22-29 mmol/L Anion Gap 13 12-20 Blood Urea Nitrogen 13 9-16 mg/dL Creatinine 0.75 0.5-1.4 mg/dL Estimated Glomerular Filt Rate > 60 NOTE: For -Macanese individuals, multiply the result by 1.210. Chronic [...] Panel Reviewed date:09/09/2024 02:20:23 PM Interpretation:Abnormal Performing Lab:[address] [address] Notes/Report: Triglycerides 92 <150 mg/dL Desirable Triglyceride: [...] Total Reviewed date:09/09/2024 01:26:35 PM Interpretation:Normal Performing Lab:[address] [phone] Notes/Report: Vitamin D 25-OH Total 32.3 >30 [...] Hormone Reviewed date:09/09/2024 01:26:35 PM Interpretation:Normal Performing Lab:[facility], [address] [place] [phone] Notes/Report: Thyroid Stimulating Hormone 1.95 0.32-4.0 uIU/ mL TSH 3rd Generation ([facility]) Pathology Reviewed date:09/19/2024 03:39:17 PM Interpretation:Non-diagnostic Performing Lab:[facility], [address] [place] [phone] Notes/Report: REASON FOR REFERRAL Reason Emphysema Abnormal C hest CT Scan Diagnosis 1 Pulmonary emphysema, unspecified emphysema type (J43.9) Referral Organization Roberto Isidro FACP Referring Provider First Name Roberto Referring Provider Last Name Jet Referring Provider [facility] Internal edicine Referred Provider Gavin Kellogg Referred Provider Specialty Pulmonary Di seases General Notes Page,Zhanna 4 03:59:39 PM EDT > Referral faxed prior to scheduling Referral Priority Routine 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 1 Encounter for genera l adult medical examination without abnormal findings (Z00.00) Referral Organization Roberto Isidro FACP Referring Provider First Name Roberto Referring Provider Javi Name Jet Referring Provider [facility] Internal edicine Referred Provider Jerrod Whyte Referred Provider Specialty OB - Gynecol ogy General Notes Page,Zhanna 4 04:31:06 PM EDT > Referral faxed prior to scheduling Referral Priority Routine Reason Nasal obstruction Diagnosis 1 Encounter for genera l adult medical examination without abnormal findings (Z00.00) Referral Organization Roberto Isidro FACP Referring Provider First Name Roberto Referring Provider Javi Name Jet Referring Provider [facility] Internal edicine Referred Provider Christopher Nicole Referred [...] Referring Provider Last Name Jet [facility] Referred Provider Virgen Prieto Referred Provider Specialty Orthopedic S urgery Referral Priority Routine Reason Thyroid nodule Diagnosis 1 Disorder of thyroid, unspecified (E07.9) Referral Organization Roberto Isidro FACP Referring Provider First Name Roberto Referring Provider Last Name Jet Ref[facility] Referred Provider Heide Desir Referred Provider Specialty Endocrinolog y General Notes Mikki Solares 024 10:50:06 AM EDT > referral faxed; patient notified., Mikki Solares 09/03/2024 01:41:12 PM EDT > referral faxed manually., Zhanna Hill 09/08/2024 10:26:40 AM EDT > [place] [facility] [place] ask we fax referral and notes to [phone] Referral Priority Routine Referral Appointment Date 09/09/2024 Reason Right wrist pain Diagnosis 1 Right wrist pain (M2 5.531) Referral Organization Roberto Isidro FACP Referring Provider First Name Roberto Referring Provider Javi Name Jet Referring Provider [facility] Internal edicine Referred Provider Virgen Prieto Referred [...] (E07.9) Active confirmed Disorder of thyroid gland (32425754) Problem Palpitations (R00.2) Active confirmed 28717642 Problem Pulmonary emphysema, unspecified emphysema type (J43.9) Active confirmed 70795905 Problem Obstructive sleep apnea (G47.33) Active confirmed 20240748 Problem Reactive depression (F32.9) Active confirmed 98296412 Problem Nonintractable episodic headache, unspecified headache type (R51) Active confirmed 01536530 Problem Thyroid cyst (E04.1) Active confirmed 91420892 VITAL SIGNS Blood pressure diastolic 60 mm Hg 09/02/2024 Height 68.25 in 09/02/2024 Blood pressure systolic 112 mm Hg 09/02/2024 Weight 216 lbs 09/02/2024 BMI 32.60 kg/m2 09/02/2024 Encounters Encounter Location Date Provider Diagnosis Roberto Chaudhary DO [facility] [address] [place], [place] [phone] 07/22/2024 Roberto Chaudhary DO [facility] [address] [place], [place] [phone] 09/02/2024 Roberto Chaudhary Encounter for genera l adult medical examination without abnormal findings Z00.00 Roberto Chaudhary DO [address] [id number] 03/26/2024 Roberto Chaudhary Infraclavicular lymphadenopathy R59.0 and Wheezing R06.2 Roberto Chaudhary DO [facility] [address] [place], [place] [phone] 03/26/2024 Roberto Chaudhary DO, [facility] [address] [place], [place] [id number] 04/09/2024 Roberto Chaudhary Infraclavicular lymphadenopathy R59.0 Roberto Chaudhary DO, [address] [id number] 07/22/2024 Roberto Chaudhary Pulmonary emphysema, unspecified emphysema type J43.9 and Thyroid cyst E04.1 Roberto Chaudhary , [address] [id number] 09/17/2024 Roberto Chaudhary Right wrist pain M25.531 Roberto Chaudhary DO, [address] [id number] 09/23/2024 Roberto Chaudhary , [address] [id number] 12/21/2023 Roberto Chaudhary DO, [address] [id number] 12/28/2023 Roberto Chaudhary Subacute cough R05.2 ASSESSMENTS [...] Insured Coverage Start Date Coverage End Date [facility] [address] [place], [place] [id number] [phone] [id number] Courtney Garcia Self - patient is the insured MEDICAL (GENERAL) HISTORY Medical History History ICD Code obstructive sleep apnea osteoarthritis Reactive depression F32.9 Palpitations R00.2 Nonintractable episodic headache, unspec ified headache type R51 Subacute cough R05.2 Surgical History Surgery Date(Month/Year) tonsillectomy wisdom teeth extraction
== END 2024-12-10 08:50 | disposition home or self-care (01) ==
LOC: HO.US 08:49
PROVIDERS: PCP Internal Medicine; Visit Provider Student in an Organized Health Care Education/Training Program
DX: E04.1 Nontoxic single thyroid nodule (principal)
CPT/HCPCS: 10005; 88173; 88305

== ENCOUNTER → 2024-12-10 08:49 | Outpatient (BNV) | payer BC, SELFPAY | PROVIDERS: PCP Internal Medicine; Visit Provider Student in an Organized Health Care Education/Training Program | DX: E04.1 Nontoxic single thyroid nodule (principal) | CPT/HCPCS: 10005 ==

== ENCOUNTER → 2024-12-16 15:45 | Outpatient (BNV) | payer BC, SELFPAY | PROVIDERS: PCP Internal Medicine; Visit Provider Internal Medicine | DX: Z12.31 Encounter for screening mammogram for malignant neoplasm of breast (principal) | CPT/HCPCS: 77063; 77067 ==

== ENCOUNTER 2024-12-17 08:41 | Outpatient (REF) | payer BC, SELFPAY ==
--- NOTE | ~2024-12-17 | FL_ITS ---
EXAMINATION: XR FLUOROSCOPY UPPER GI WITH AIR CLINICAL INFORMATION: Dysphagia. COMPARISON: None TECHNIQUE: Fluoroscopic air contrast upper GI examination was performed utilizing standard techniques with thin and thick barium and effervescent granules. Numerous spot images were obtained. FINDINGS: Lateral cine images of the oropharynx and hypopharynx demonstrate normal swallow mechanism with normal epiglottic inversion and soft palate elevation. No tracheal penetration, glottic or subglottic aspiration identified. No nasopharyngeal reflux present. Hypopharyngeal structures appear normal without evidence of mass or diverticulum. There was no significant cricopharyngeal achalasia. Dual and single contrast images of the esophagus demonstrate normal caliber, contour, and mucosal pattern. No evidence of stricture, mass, or ulcerations identified. Esophageal peristalsis is moderately disorganized. A very small type I hiatal hernia is present. No significant gastroesophageal reflux was seen during the course of the examination and on reflux views. Dual contrast and single contrast images of the stomach demonstrated normal contour. There are multiple tiny foci of contrast pooling in the fundus of the stomach that may represent small mucosal erosions. No masses are seen. Contrast freely passed into the gastric antrum and duodenal bulb without delay. Single and air-contrast images of the duodenal bulb demonstrate no abnormality. The duodenal sweep has a normal appearance, course, and mucosal fold appearance. The imaged proximal jejunum has a normal fold pattern and caliber. FLUOROSCOPY TIME: 4 minutes 3 seconds Number of Spot Images: 7 Number of Cine: 15 DOSE AREA PRODUCT: 2672 uGy-m2 (microgray-meter squared) FL/FL barium swallow IMPRESSION: 1. Moderately esophageal dysmotility. 2. Very small type I hiatal hernia. 3. Multiple tiny foci of contrast pooling in the fundus the stomach that may represent small mucosal ulcerations. Recommend correlation with EGD. This procedure was performed by Paco Azevedo PA-C, and supervised by Dr. Rivera Electronically signed by: Tru Rivera MD 12/19/2024 04:58 PM [facility]
== END 2024-12-17 08:42 | disposition home or self-care (01) ==
LOC: HO.XRAY 08:41
PROVIDERS: Visit Provider Otolaryngology
DX: R13.10 Dysphagia, unspecified (principal)
CPT/HCPCS: 74220

== ENCOUNTER → 2024-12-17 08:43 | Outpatient (BNV) | payer BC, SELFPAY | PROVIDERS: Visit Provider Physician Assistant Surgical | DX: R13.10 Dysphagia, unspecified (principal) | CPT/HCPCS: 74246; 74248 ==

== ENCOUNTER 2024-12-24 15:39 | Outpatient (AMB) | payer BC, SELFPAY ==
[2024-12-24 15:40] VITALS: BP 112/78; PULSE 79; O2SAT 96; BMI 32.5
--- NOTE | 2024-12-24 15:40 | A.OFFVIS_ITS ---
Vital Signs 3 12/24/24 15:40 Height 5 ft 9 in Weight 219 lb 12.814 oz BMI 32.5 BP 112/78 Blood Pressure Location Lt brachial Position Sitting Pulse 79 Pulse Source Pulse Oximeter Pulse Oximetry (%) 96 Oxygen Delivery Method Room Air Intake Visit Reasons: Biopsy f/u Intake Note: Patient present today for biopsy results. Fish Frog Or Oyster Farmer Required: No Accompanied by: Self / Same As Patient Allergies Penicillins Allergy (Intermediate, Verified 12/24/24 15:45) RASH HPI Comments Details: 58-year-old female coming in today for follow up of solitary right-sided thyroid nodule. She is here today to discuss biopsy results. She had a CT chest in June 2024 which showed left-sided infraclavicular lymphadenopathy but also showed left-sided hypodensities in the thyroid. Hence ultrasound of the thyroid done. Ultrasound from August 2024 I reviewed the images myself which showed a solitary left upper/mid 1.5 cm thyroid nodule which is mixed cystic solid with mostly cystic component but taller than wide making it a TR 4 category nodule meeting criteria for FNA . Underwent FNA biopsy of the left upper/midpole 1.5 cm nodule on 09/17/2024 which came back as nondiagnostic [place] category 1. TSH from 09/09/2024 within normal limits. Patient complains of heat intolerance, hot flashes. Feels tired. Has sleep apnea not on CPAP. Reports tiredness. Denies diarrhea or constipation, hair loss, palpitation, anxiety, weight changes, mood changes, low energy, changes in appearance of eyes or vision changes, tremors, increased diaphoresis or dry skin. ? Patient denies any pain on swallowing or voice changes or difficulty breathing. Sometimes has difficulty swallowing with big bites. Denies any fullness. Patient denies any history of childhood neck radiation. Denies having ever used lithium, amiodarone or biotin supplements. Patient denies any family history of thyroid cancer or thyroid disease. Interval history 12/10/2024: Underwent repeat FNA of the left superior mid thyroid nodule which came back as benign [place] category 2. Physical exam General: sitting comfortably in no acute distress HEENT: normocephalic/atraumatic, moist oral mucosa Neck: supple, symmetrical, palpable 1 cm left-sided nodule , no dorsocervical or supraclavicular fat pads Cardiac: normal heart sounds Pulm: normal breath sounds B/L, no added breath sounds Abd: not distended, no tenderness Extremities: no edema, no signs of myxedema Neuro: AAO x3, Speech: normal, no facial droop, moving all 4 extremities Skin: no rash Laboratory Tests 09/09/24 10:43 TSH 1.95 Laboratory Tests 12/14/18 08/22/19 07:40 17:07 TSH 3rd Generation 1.87 0.67 US THYROID August 2024 CLINICAL INFORMATION: Thyroid cyst. COMPARISON: None available. TECHNIQUE: Linear transducer grayscale and color Doppler examination with attention to the region of the thyroid. FINDINGS: SIZE: Measurements of the thyroid lobes and nodules are given in sagittal, anteroposterior and transverse dimensions respectively. Right Thyroid Lobe: 4.8 x 1.4 x 1.4 cm, volume 4.9 mL. Parenchyma: The gland echotexture is homogeneous. Thyroid vascularity is normal. Left Thyroid Lobe: 5.3 x 1.5 x 1.7 cm, volume 7.0 mL. Parenchyma: The gland echotexture is homogeneous. Thyroid vascularity is increased. Isthmus: 0.4 cm in maximum AP dimension. Estimated total number of nodules greater than or equal to 1 cm: 1. Key Account Representative nodules are described as follows: 1. Location: Left upper/mid pole. Size: 1.5 x 1.2 x 1.2 cm, volume 1.12 mL. Nodule characteristics: Composition: Mixed cystic and solid (1). Echogenicity: Cannot be determined (1). Shape: Taller than wide (3). Margins: Smooth (0). Echogenic Foci: None (0). ACR TI-RADS total points: 5 ACR TI-RADS category: 4 NODES: No lymphadenopathy is seen in the tissue surrounding the thyroid gland. US/US thyroid IMPRESSION: A 1.5 cm left TR 4 thyroid nodule meets criteria for biopsy. Fine-needle aspiration recommended. [facility] Medical History (Updated 12/08/24 @ 15:22 by RODO Márquez) Nocturnal hypoxemia Somnolence, daytime Retrognathia Solitary thyroid nodule YASMANY (obstructive sleep apnea) Obesity (BMI 30-39.9) Sleep apnea Migraine Surgical History Hx of tonsillectomy Family History Mother Colon cancer Father Colon cancer Social History Alcohol intake: current Alcohol intake frequency: holidays/special occasions only Patient Tobacco Use Status: Never used Tobacco Current occupational status: employed Female Reproductive History Menstrual Age of Menarche: 14 Physical Exam Vital Signs: Last Vital Signs Pulse 79 12/24/24 15:40 BP 112/78 12/24/24 15:40 Pulse Ox 96 12/24/24 15:40 Oxygen Delivery Method Room Air 12/24/24 15:40 BMI result Body Mass Index 32.5 Assessment & Plan Assessment & Plan (1) Solitary thyroid nodule: Code(s): E04.1 - Nontoxic single thyroid nodule Category: Medical Plan: Patient with no family history of thyroid cancer with no personal history of head or neck radiation, who underwent thyroid ultrasound Ultrasound from August 2024 I reviewed the images myself which showed a solitary left upper/mid 1.5 cm thyroid nodule which is mixed cystic solid with mostly cystic component but taller than wide making it a TR 4 category nodule meeting criteria for FNA . Underwent FNA biopsy of the left upper/midpole 1.5 cm nodule on 09/17/2024 which came back as nondiagnostic [place] category 1. TSH from 09/09/2024 within normal limits. 12/10/2024: Underwent repeat FNA of the left superior mid thyroid nodule which came back as benign [place] category 2. I explained to the patient that benign results mean less than 3% chance of malignancy and at this time given this the TR 4 category nodule we will plan to repeat an ultrasound of the thyroid in November 2025 along with labs and see her back in December 2025 to discuss results. Plan: - ultrasound of the thyroid ordered for November 2025 -labs with TSH with reflex free T4 ordered for November 2025 -follow up in December 2025 Plan see above Orders: Orders 2 US thyroid 11/16/25 E04.1 - Nontoxic single thyroid nodule TSH reflex Free T4 1 Year E04.1 - Nontoxic single thyroid nodule Patient Instructions: Do thyroid ultrasound and blood work in November 2025 and follow up in Dec 2025 Coding Level of Care Code Est Pt Level 3 (32704) Diagnoses Solitary thyroid nodule E04.1
--- OUTSIDE RECORDS SUMMARY | 2024-12-24 16:26 | XMS_ITS ---
Author Organization Roberto Chaudhary DO, FACP Address [address] [facility] [place] [phone] Care Team Providers Care Terminologist Name Role Phone Roberto Chaudhary Primary Care Provider [phone] Po Sav PILLAI Unavailable Unavailable REASON FOR VISIT Needs call back from MD Encounters Encounter Location Date Provider Diagnosis Roberto Chaudhary DO FACP [address] [place] [phone] 09/23/2024 Roberto Chaudhary PLAN OF TREATMENT No Information
--- OUTSIDE RECORDS SUMMARY | 2024-12-24 16:26 | XMS_ITS ---
Author Organization Roberto Chaudhary DO, FACP Address [address] [place], [place] [phone] Care Team Providers Care Commodity Specialist Name Role Phone Roberto Chaudhary Primary Care Provider Sav Dunn MD Unavailable Unavailable REASON FOR VISIT Message Encounters Encounter Location Date Provider Diagnosis Roberto Chaudhary DO [address] [id number] 09/17/2024 Roberto Chaudhary Right wrist pain M25.531 ASSESSMENTS Encounter Date Diagnosis Assessment Notes Treatment Notes Treatment Clinical Notes 09/17/2024 Right wrist pain (ICD-10 - M25.531) PLAN OF TREATMENT Pending Test Test Name Order Date XR wrist RT min 3V 09/17/2024
--- OUTSIDE RECORDS SUMMARY | 2024-12-24 16:26 | XMS_ITS | Patient Health Record ---
Author Organization Roberto Chaudhary DO, [facility] Address [address] [place] [phone] Care Team Providers Care Mine Promotor Name Role Phone Roberto Chaudhary Primary Care Provider Sav Dunn MD Unavailable Unavailable ALLERGIES Allergen (clinical drug ingredient) Drug/Non Drug Allergy documented on EMR Reaction Allergy Type Onset Date Status Penicillin childhood reaction Drug Allergy Active RESULTS Component Value Reference Range Notes Blood Urea Nitrogen Reviewed date:06/14/2024 11:47:02 AM Interpretation:Normal Performing Lab:[facility], [address] [place] [phone] Notes/Report: Blood Urea Nitrogen 16 9-16 mg/dL Creatinine Reviewed date:06/14/2024 11:47:02 AM Interpretation:Normal Performing Lab:[facility], [address] [place] [phone] Notes/Report: Creatinine 0.75 0.5-1.4 mg/dL Estimated Glomerular Filt Rate > 60 NOTE: For -[place] individuals, multiply the result by 1.210. Chronic Kidney Disease: Estimated GFR < 60 mL/min/1.73m2 Severe Kidney Disease: Estimated GFR < 15 mL/min/1.73m2 CT chest w con Reviewed date:07/22/2024 03:29:24 PM Interpretation:Abnormal Performing Lab: Notes/Report: [address] [address] [address] Scan Report Signed Patient: Courtney Garcia MR#: [id number] 642 : 1965 Acct:[id number] Age/Sex: 58 / F ADM Date: 06/30/24 Loc: .CT Attending Dr: Roberto Chaudhary DO Ordering Physician: Roberto Chaudhary DO Date of Service: 06/30/24 Procedure(s): CT chest w IV con Accession Number(s): [id number] cc: Roberto Chaudhary DO EXAMINATION: CT CHEST WITH CONTRAST CLINICAL INFORMATION: [...] iterative reconstruction technique DLP: 159 mGy-cm FINDINGS: AIR SAMPLER: 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 LUNGS: Trachea bronchi are patent. [...] 07/22/24 1337 DD/ 0821 TD/TT: 06/30/24 0835 Construction Administrative Assistant: US thyroid Reviewed date:09/03/2024 10:16:32 AM Interpretation:Abnormal Performing Lab: Notes/Report: [address] [address] Ultrasound Report Signed Patient: Courtney Garcia MR#: [id number] 642 : 1965 Acct:[id number] Age/Sex: 58 / F ADM Date: 08/14/24 Loc: HO.US Attending Dr: Roberto Chaudhary DO Ordering Physician: Roberto Chaudhary DO Date of Service: 08/14/24 Procedure(s): US thyroid Accession Number(s): [id number] cc: Roberto Chaudhary DO EXAMINATION: US THYROID [...] than or equal to 1 cm: 1. Director Of Extension Work nodules are described as follows: 1. Location: [...] aspiration recommended. This study was presented to [facility] on September 03, 2024 for interpretation. PSA [...] signed by Marla Eason MD in OV> 09/03/2424 DD/ TD/TT: 08/14/24 0749 Construction Administrative Assistant: Complete Blood Count Auto Di ff Reviewed date:09/09/2024 12:39:07 PM Interpretation:Abnormal Performing Lab:[facility], [address] [place] [phone] Notes/Report: White Blood Count 7.9 4.8-10.8 X10*3/uL [...] NRBC Abs Auto 0.000 0.0-0.012 X10*3/uL Comprehensive [place]. Panel Fa st Reviewed date:09/09/2024 01:26:35 PM Interpretation:Normal Performing Lab:[facility], [address] [place] [address] Notes/Report: Sodium 142 135-145 mmol/L Potassium 4.1 3.3-5.1 mmol/L Chloride 107 96-108 mmol/L Carbon Dioxide 26 22-29 mmol/L Anion Gap 13 12-20 Blood Urea Nitrogen 13 9-16 mg/dL Creatinine 0.75 0.5-1.4 mg/dL Estimated Glomerular Filt Rate > 60 NOTE: For -[place] individuals, multiply the result by 1.210. Chronic [...] Panel Reviewed date:09/09/2024 02:20:23 PM Interpretation:Abnormal Performing Lab:[address] [address] Notes/Report: Triglycerides 92 <150 mg/dL Desirable Triglyceride: [...] Total Reviewed date:09/09/2024 01:26:35 PM Interpretation:Normal Performing Lab:[address] [address] Notes/Report: Vitamin D 25-OH Total 32.3 >30 [...] Hormone Reviewed date:09/09/2024 01:26:35 PM Interpretation:Normal Performing Lab:[facility], [address] [place] [address] Notes/Report: Thyroid Stimulating Hormone 1.95 0.32-4.0 uIU/ mL TSH 3rd Generation ([facility]) Pathology Reviewed date:09/19/2024 03:39:17 PM Interpretation:Non-diagnostic Performing Lab:[facility], [address] [place] [address] Notes/Report: REASON FOR REFERRAL Reason Emphysema Abnormal C hest CT Scan Diagnosis 1 Pulmonary emphysema, unspecified emphysema type (J43.9) Referral Organization Roberto Isidro FACP Referring Provider First Name Roberto Referring Provider Last Name Jet Referring Provider [facility] edicine Referred Provider Gavin Kellogg Referred Provider Specialty Pulmonary Di seases General Notes Page,Zhanna 4 03:59:39 PM EDT > Referral faxed prior to scheduling Referral Priority Routine Reason ANIMAL TECHNICIAN examination Diagnosis 1 Encounter for genera l adult medical examination without abnormal findings (Z00.00) Referral Organization Roberto Isidro FACP Referring Provider First Name Roberto Referring Provider Last Name Jet Referring Provider [facility] edicine Referred Provider Jerrod Whyte Referred Provider Specialty OB - Gynecol ogy General Notes Page,Zhanna 4 04:31:06 PM EDT > Referral faxed prior to scheduling Referral Priority Routine Reason Nasal obstruction Diagnosis 1 Encounter for genera l adult medical examination without abnormal findings (Z00.00) Referral Organization Roberto Isidro FACP Referring Provider First Name Roberto Referring Provider Javi Name Jet Referring Provider [facility] Referred Provider Christopher Nicole Referred Provider Specialty Otology, Lar yngology, Rhinology General Notes PageZhanna 4 04:31:53 PM EDT > Referral faxed prior to scheduling Referral Priority Routine Reason Right shoulder pain Right wrist pain Diagnosis 1 Encounter for genera l adult medical examination without abnormal findings (Z00.00) Referral Organization Roberto Isidro FACP Referring Provider First Name Roberto Referring Provider Last Name Jet Referring Provider [facility] Internal edicine Referred Provider Virgen Prieto Referred Provider Specialty Orthopedic S urgery Referral Priority Routine Reason Thyroid nodule Diagnosis 1 Disorder of thyroid, unspecified (E07.9) Referral Organization Rboerto Isidro FACP Referring Provider First Name Roberto Referring Provider Last Name Jet Ref[facility] Referred Provider Heide Desir Referred Provider Specialty Endocrinolog y General Notes Mikki Solares 024 10:50:06 AM EDT > referral faxed; patient notified., Mikki Solares 09/03/2024 01:41:12 PM EDT > referral faxed manually., Zhanna Hill 09/08/2024 10:26:40 AM EDT > Niki at [facility] Endo ask we fax referral and notes to [phone] Referral Priority Routine Referral Appointment Date 09/09/2024 Reason Right wrist pain Diagnosis 1 Right wrist pain (M2 5.531) Referral Organization Roberto Isidro FACP Referring Provider First Name Roberto Referring Provider Last Name Jet Referring Provider [facility] Internal edicine Referred Provider Virgen Prieto Referred Provider Specialty Orthopedic S urgery General Notes Zhanna Hill 4 03:10:50 PM EST > Referral faxed prior [...] (E07.9) Active confirmed Disorder of thyroid gland (64095446) Problem Palpitations (R00.2) Active confirmed 61700563 Problem Pulmonary emphysema, unspecified emphysema type (J43.9) Active confirmed 90400186 Problem Obstructive sleep apnea (G47.33) Active confirmed 36747963 Problem Reactive depression (F32.9) Active confirmed 14312820 Problem Nonintractable episodic headache, unspecified headache type (R51) Active confirmed 78954444 Problem Thyroid cyst (E04.1) Active confirmed 56892278 VITAL SIGNS Blood pressure diastolic 60 mm Hg 09/02/2024 Height 68.25 in 09/02/2024 Blood pressure systolic 112 mm Hg 09/02/2024 Weight 216 lbs 09/02/2024 BMI 32.60 kg/m2 09/02/2024 Encounters Encounter Location Date Provider Diagnosis Roberto Chaudhary DO, [facility] [address] [place], [place] [phone] 07/22/2024 Roberto Chaudhary DO, [facility] [address] [place], [place] [phone] 09/02/2024 Roberto Chaudhary Encounter for genera l adult medical examination without abnormal findings Z00.00 Roberto Chaudhary DO, [address] [id number] 03/26/2024 Roberto Chaudhary Infraclavicular lymphadenopathy R59.0 and Wheezing R06.2 Roberto Proctor Jet [facility], [address] [id number] 03/26/2024 Roberto Chaudhary Roberto Proctor Jet [facility], [address] [id number] 04/09/2024 Roberto Chaudhary Infraclavicular lymphadenopathy R59.0 Roberto Hitesh Jet [facility], [address] [id number] 07/22/2024 Roberto Chaudhary Pulmonary emphysema, unspecified emphysema type J43.9 and Thyroid cyst E04.1 Roberto Hitesh Jet [facility], [address] [id number] 09/17/2024 Roberto Chaudhary Right wrist pain M25.531 Roberto Hitesh Jet [facility], [address] [id number] 09/23/2024 Roberto Chaudhary Roberto Proctor Jet [facility], [address] [id number] 12/28/2023 Roberto Chaudhary Subacute cough R05.2 ASSESSMENTS [...] Insured Coverage Start Date Coverage End Date [facility] [address] [place], [place] [id number] [phone] [id number] Courntey Garcia Self - patient is the insured MEDICAL (GENERAL) HISTORY Medical History History ICD Code obstructive sleep apnea osteoarthritis Reactive depression F32.9 Palpitations R00.2 Nonintractable episodic headache, unspec ified headache type R51 Subacute cough R05.2 Surgical History Surgery Date(Month/Year) tonsillectomy wisdom teeth extraction
--- OUTSIDE RECORDS SUMMARY | 2024-12-24 16:26 | XMS_ITS | Patient Health Record ---
Author Organization [facility] [place] Address [address] [facility] [place] [address] Care Team Providers Care Line Maintenance Supervisor Name Role Phone Roberto Chaudhary MD Primary Care Provider Unavail Marcellus Mukherjee Unavailable [phone] Allergies Allergen (clinical drug ingredient) Drug/Non Drug [...] Insured Coverage Start Date Coverage End Date [facility] [address] [facility] [place] [id number] Courtney Garcia Self - patient is the insured Medical (General) History Medical History History ICD Code Arthritis Broken bones covid-19 Headaches/Migraines Lyme disease Chicken pox Dental implants Surgical History Surgery Date(Month/Year) tonsillectomy 1977
--- OUTSIDE RECORDS SUMMARY | 2024-12-24 16:26 | XMS_ITS ---
Author Organization [facility] Address [address] [facility] [place] [address] Care Team Providers Care Business Mail Entry Clerk Name Role Phone Roberto Chaudhary MD Primary Care Provider Unavail aJnet Mukherjeeter Unavailable [phone] Allergies Allergen (clinical drug ingredient) Drug/Non Drug [...] 11/19/2023 Encounters Encounter Location Date Provider Diagnosis [facility] [address] [place] [address] 11/19/2023 Marcellus Lozano Pain in left foot [...] Courtney VIVAS LDOB:[birth year] (58 yo F)Acc No.[id number]:11/19/2023 Progress Notes Patient:?Courtney Vivas L Provider:?Marcellus Lozano DPM :1965???Age:58 Y???Sex:Female D ate:11/19/2023 Address:[address] [place], [place] [phone] Pcp:Roberto Chaudhary MD Subjective: * Chief Complaints: [...] 3. ?Marital status: . 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 * Medications:?Not-Taking/PRNA lbuterol Sulfate HFA 108 [...] - S92.515A? Plan: * Treatment: * Procedure Codes:?48759 X-RAY EXAM OF LEFT FOOT 3V, Modifiers: [...] DPM Date:? 024 Generated for Refugio alexis/Shilpi/eTransmitting on:?12/24/2024 04:26 PM EST History and Physical Notes * [...]
--- OUTSIDE RECORDS SUMMARY | 2024-12-24 16:26 | XMS_ITS ---
Author Organization Roberto Chaudhary DO FACP Address [address] [place], [place] [phone] Care Team Providers Care Sales Representative Education Courses Name Role Phone Jet Roberto Primary Care Provider Po Sav PILLAI Unavailable Unavailable ALLERGIES Allergen (clinical drug ingredient) Drug/Non Drug Allergy documented on EMR Reaction Allergy Type Onset Date Status Penicillin childhood reaction Drug Allergy Active REASON FOR REFERRAL Reason HEALTH PLAN MANAGER examination Diagnosis 1 Encounter for genera l [...] Location Date Provider Diagnosis Roberto Chaudhary DO, [address] [id number] 09/02/2024 Roberto Chaudhary Encounter for genera l adult medical examination without abnormal findings Z00.00 ASSESSMENTS Encounter Date Diagnosis Assessment Notes Treatment Notes Treatment Clinical Notes 09/02/2024 Encounter for general adult medical examination without abnormal findings (ICD-10 - Z00.00) PLAN OF TREATMENT Referrals Referral Date Details HEALTH PLAN MANAGER examination, Mar c Zerbe Nasal obstruction, R [...] the p ast year Communication Needs [facility] Communication Needs - [facility] ari Impairment?: No Vision Impairment?: Yes wears [...] Provider Not es 09/02/2024 Roberto Chaudhary Marc HEALTH PLAN MANAGER examinat ion 09/02/2024 Roberto Chaudhary Ram Singh Nasal obstruction 09/02/2024 Roberto Chaudhary Allison Right s houlder pain Right wrist pain
== END 2024-12-24 16:08 | disposition home or self-care (01) ==
PROVIDERS: PCP Internal Medicine; Visit Provider Student in an Organized Health Care Education/Training Program
DX: E04.1 Nontoxic single thyroid nodule (principal)
CPT/HCPCS: 99213

== ENCOUNTER 2024-12-31 15:02 | Outpatient (RCR) | payer BC, SELFPAY ==
--- NOTE | 2025-01-01 11:41 | MHC.OT.EP ---
[address] [phone] Occupational Therapy Plan of Care Patient Name: Courtney Garcia Date of Evaluation: 12/31/24 Diagnosis: OA B hands Pain Location: Pain Score: Pain Scale Used: Aggravating Factors: Alleviating Factors: Assessment: Pt is a R handed 59 yr. old female who reports OA in B hands in all digits/ joints. 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 She presents today w/ the inability to make a composite fist w/ her L hand, arthritic nodes (Bouchards & Herbedens) B hands / digits, and thenar wasting of B hands. She is wearing a comfort cool splint on her R hand due to a dx of De Quervain's which she is having Debridement surgery for on 02/09/25. Pt would benefit from skilled OT therapy to educate her o joint protection techniques , modalities, and ROM to increase the functional use of her B hands Frequency and Duration: The patient will be seen 1 x aweek for 4 weeks Short Term Goals: SEE BELOW Mcfp Goals: Pt will be complaint w/ joint protection techniques Pt will be compliant w/ HEP Pt will be complaint w/ use of modalities to decrease sx's of joint pain Treatment Plan: Therapeutic Exercise Therapeutic Activity Home Exercise Program Splinting Neuro Re-ed Patient Education Desensitization/Sensory Re-ed Edema Control ADL Training Ultrasound NMES Iontophoresis Paraffin Fluidotherapy MHP Cold Packs Joint Mobilization Soft Tissue Mobilization Kinesiotaping Other (see comments) Electronically Signed By: Jaclyn Balbuena OTR/L Please Sign and return to therapist. Thank you once again for your referral.
== END 2025-03-10 10:56 | disposition home or self-care (01) ==
LOC: HO.OT 15:02
PROVIDERS: PCP Internal Medicine
DX: M19.041 Primary osteoarthritis, right hand (principal); M19.042 Primary osteoarthritis, left hand
CPT/HCPCS: 97140; 97165; 97535

== ENCOUNTER 2025-01-06 15:32 | Outpatient (AMB) | payer BC, SELFPAY ==
--- NOTE | 2025-01-06 15:45 | A.OFFVIS_ITS ---
Vital Signs 01/06/25 15:46 Height 5 ft 9 in Weight 222 lb 10.67 oz BMI 32.9 BP 130/60 Blood Pressure Location Lt brachial Position Sitting Pulse 80 Pulse Source Pulse Oximeter Pulse Oximetry (%) 96 Oxygen Delivery Method Room Air Intake Visit Reasons: COPD Intake Note: pt is here for follow up of starting sleep study. pt was given airtouch F20 in small to try. 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 She has been using CPAP , but had developed some claustrophobia, and wanted to explore different possibilities. We did an other home-based sleep study which was positive for sleep apnea. After thorough discussion she decided to try the CPAP once again. I had given her prescription for lorazepam 0.5 mg to use p.r.n. if she feels anxious . She is using fullface mask, this time she has done very well and used it regularly. Missed using on 3 nights because she had common cold symptoms. Otherwise she has been sleeping well with the CPAP. She still gets some tired feeling and sleepiness during the daytime but that is more related to her stressful work. [facility] Medical History Nocturnal hypoxemia Somnolence, daytime Retrognathia Solitary thyroid nodule YASMANY (obstructive sleep apnea) Obesity (BMI 30-39.9) Sleep apnea Migraine Surgical History Hx of tonsillectomy Family History Mother Colon cancer Father Colon cancer Social History Alcohol intake: current Alcohol intake frequency: holidays/special occasions only Patient Tobacco Use Status: Never used Tobacco Current occupational status: employed Female Reproductive History Menstrual Age of Menarche: 14 Review of Systems Const All systems reviewed & are unremarkable except as noted in HPI and below Eyes Reports no additional complaints ENT Reports no additional complaints Card Denies chest pain, Denies irregular heart rhythm and Denies leg edema Resp Reports no additional complaints GI Reports no additional complaints Reports no additional complaints Musc Reports no additional complaints Skin/Breast Reports system reviewed and no additional complaints, except as documented Neuro Reports no additional complaints Psych Reports no additional complaints Endo Reports no additional complaints Physical Exam Vital Signs: Last Vital Signs Pulse 80 01/06/25 15:46 BP 130/60 01/06/25 15:46 Pulse Ox 96 01/06/25 15:46 Oxygen Delivery Method Room Air 01/06/25 15:46 BMI result Body Mass Index 32.9 Const General: healthy appearing (EXCEPT FOR BEING OVERWEIGHT), comfortable, no acute distress, alert and awake Orientation/consciousness: patient oriented x3 HEENT Head: Yes normal to inspection General nose exam: No nasal polyps present and No nasal discharge present Face and sinus: Yes sinuses nontender Mouth: oropharynx abnormals (MODERATELY NARROW AND CROWDED, MALLAMPATI CLASS 3) Teeth and gingiva: other (RETROGANTHIA OF THE LOWER JAW) Throat: Yes posterior oropharynx normal Eyes General: appearance normal, both eyes and all related structures Neck Neck: Yes normal visual inspection, Yes no lymphadenopathy, Yes trachea midline and Yes no JVD Thyroid: Thyroid normal Chest Chest palpation & inspection: normal inspection of the chest, normal palpation of entire chest wall and no tenderness Resp Effort & Inspection: normal respiratory effort Auscultation: clear to auscultation bilaterally, no crackles and no wheezes Cardio Palpation: normal PMI Rate: regular rate Rhythm: regular rhythm Heart sounds: no gallops and no murmurs Peripheral pulses: Peripheral pulses 2+ throughout GI Palpation (GI): Soft to palpation, nontender, No hepatosplenomegaly present and no masses Auscultation: normal bowel sounds Back/Spine/Pelvis Thoracic/Lumbar Spine: thoracic and lumbar spine normal to inspection Skin General skin exam: no rashes or lesions noted Neuro General: patient oriented x3 and no focal motor deficits Cranial nerves: Yes CN's II-XII intact bilaterally Extrem General: Yes normal to inspection, Yes no clubbing, cyanosis or edema and Yes no calf tenderness Psych Appearance: grossly normal and well kempt Speech and movement: Normal speech and movement present Results Reviewed Results Reviewed: The compliance report for the last 30 nights is reviewed. She used 28/30 nights,. 93% of the nights average use it per night 6 hours 31 minutes. There was no significant air leak. Residual AHI 2.6. Assessment & Plan Assessment & Plan (1) YASMANY (obstructive sleep apnea): Comment: THE HOME-BASED SLEEP STUDY CONFIRMED THAT SHE HAS MILD TO MODERATELY SEVERE OBSTRUCTIVE SLEEP APNEA. SHE HAD SIGNIFICANT DEGREE OF SNORING. SHE ALSO HAD MILD NOCTURNAL HYPOXEMIA. PATIENT HAD DECIDED TO USE THE CPAP AGAIN. WITH THE HELP OF LORAZEPAM 0.5 MG WHICH SHE HAD TO TAKE ONLY FOR A FEW NIGHTS, SHE WAS ABLE TO TOLERATE THE FULLFACE MASK. HAS BEEN VERY COMPLIANT Code(s): G47.33 - Obstructive sleep apnea (adult) (pediatric) Category: Medical Plan: THE COMPLIANCE REPORT REVIEWED WITH. SHE WANTS TO CONTINUE USING THE CPAP. WE HAVE GIVEN HER A MASK FROM THE OFFICE AIR TOUCH F20 TO TRY. ASKED HER IF SHE WANTS TO EXPLORE FOR POSSIBLE INSPIRE. SHE SAT KNOW WHAT AT THIS TIME SHE WOULD LIKE TO CONTINUE THE CPAP THERAPY. (2) Nocturnal hypoxemia: Comment: SHE HAS MILD DEGREE OF NOCTURNAL HYPOXEMIA AND THIS IS DEFINITELY DUE TO SLEEP- RELATED HYPOVENTILATION. CLINICALLY SEEMS TO HAVE RESOLVED WITH THE USE OF CPAP. Code(s): G47.34 - Idiopathic sleep related nonobstructive alveolar hypoventilation Category: Medical Plan: NO NEED TO DO OVERNIGHT OXIMETRY RECORDING (3) Retrognathia: Comment: PATIENT WAS ASKING ABOUT WHAT ARE THE REASONS FOR A SLEEP APNEA. I EXPLAINED TO HER ABOUT RETROGANTHIA OF THE LOWER JAW AND AND ALSO BEING OVERWEIGHT. Code(s): M26.19 - Other specified anomalies of jaw-cranial base relationship Category: Medical Plan: THE ORAL DEFORMITY IS NOT GOING TO CHANGE BUT SHE CAN TRY TO LOSE SOME WEIGHT. Coding Level of Care Code Est Pt Level 3 (53657) Diagnoses YASMANY (obstructive sleep apnea) G47.33 Nocturnal hypoxemia G47.34 Retrognathia M26.19
[2025-01-06 15:46] VITALS: BP 130/60; PULSE 80; O2SAT 96; BMI 32.9
--- OUTSIDE RECORDS SUMMARY | 2025-01-06 19:19 | XMS_ITS ---
Author Organization Roberto Chaudhary DO FACP Address [address] [place], [place] [phone] Care Team Providers Care Asphalt Paving Superintendent Name Role Phone Jet Roberto Primary Care Provider [phone] Po Sav PILLAI Unavailable Unavailable ALLERGIES Allergen (clinical drug ingredient) Drug/Non Drug Allergy documented on EMR Reaction Allergy Type Onset Date Status Penicillin childhood reaction Drug Allergy Active REASON FOR REFERRAL Reason CHARTING CLERK examination Diagnosis 1 Encounter for genera l [...] Referring Provider First Name Roberto Referring Provider aJvi Name Jet Referring Provider Speciality Internal edicine [...] Location Date Provider Diagnosis Roberto Chaudhary DO, [address] [phone] 09/02/2024 Roberto Chaudhary Encounter for genera l adult medical examination without abnormal findings Z00.00 ASSESSMENTS Encounter Date Diagnosis Assessment Notes Treatment Notes Treatment Clinical Notes 09/02/2024 Encounter for general adult medical examination without abnormal findings (ICD-10 - Z00.00) PLAN OF TREATMENT Referrals Referral Date Details CHARTING CLERK examination, Mar c Zerbe Nasal obstruction, R [...] in the p ast year Communication Needs [facility] Communication Needs - [facility] ari Impairment?: No Vision Impairment?: Yes [...] Provider Not es 09/02/2024 Roberto Chaudhary Marc CHARTING CLERK examinat ion 09/02/2024 Roberto Chaudhary Ram Singh Nasal obstruction 09/02/2024 Roberto Chaudhary Allison Right s houlder pain Right wrist pain
--- OUTSIDE RECORDS SUMMARY | 2025-01-06 19:19 | XMS_ITS ---
Author Organization Roberto Chaudhary DO, FACP Address [address] [facility] [place] [id number] Care Team Providers Care Senior Quality Assurance Engineer Name Role Phone Roberto Chaudhary Primary Care Provider Po Sav PILLAI Unavailable Unavailable REASON FOR VISIT Needs call back from MD Encounters Encounter Location Date Provider Diagnosis Roberto Chaudhary DO FACP [address] [place] [phone] 09/23/2024 Roberto Chaudhary PLAN OF TREATMENT No Information
--- OUTSIDE RECORDS SUMMARY | 2025-01-06 19:20 | XMS_ITS | Patient Health Record ---
Author Organization [facility] Address [address] [place] [address] Care Team Providers Care Monitoring Tech Name Role Phone Roberto Chaudhary MD Primary Care Provider Unavail Marcellus Mukherjee Unavailable [phone] Allergies Allergen (clinical drug ingredient) Drug/Non Drug [...] Insured Coverage Start Date Coverage End Date [facility] [address] [facility] [place] [id number] Courtney Garcia Self - patient is the insured Medical (General) History Medical History History ICD Code Arthritis Broken bones covid-19 Headaches/Migraines Lyme disease Chicken pox Dental implants Surgical History Surgery Date(Month/Year) tonsillectomy 1977
--- OUTSIDE RECORDS SUMMARY | 2025-01-06 19:20 | XMS_ITS ---
Author Organization Roberto Chaudhary DO, FACP Address [address] [place], [place] [phone] Care Team Providers Care Floor Worker Well Service Name Role Phone Roberto Chaudhary Primary Care Provider Sav Dunn MD Unavailable Unavailable REASON FOR VISIT Message Encounters Encounter Location Date Provider Diagnosis Roberto Chaudhary DO [address] [phone] 09/17/2024 Roberto Chaudhary Right wrist pain M25.531 ASSESSMENTS Encounter Date Diagnosis Assessment Notes Treatment Notes Treatment Clinical Notes 09/17/2024 Right wrist pain (ICD-10 - M25.531) PLAN OF TREATMENT Pending Test Test Name Order Date XR wrist RT min 3V 09/17/2024
--- OUTSIDE RECORDS SUMMARY | 2025-01-06 19:20 | XMS_ITS ---
Author Organization [facility] Address [address] [place] [address] Care Team Providers Care Buffet Runner Name Role Phone Roberto Chaudhary MD Primary Care Provider Unavail Janet Mukherjeeter Unavailable [phone] Allergies Allergen (clinical drug ingredient) Drug/Non Drug [...] 11/19/2023 Encounters Encounter Location Date Provider Diagnosis [facility] [address] [facility] [address] 11/19/2023 Marcellus Lozano Pain in left foot [...] Courtney VIVAS LDOB:[birth year] (58 yo F)Acc No.[id number]:11/19/2023 Progress Notes Patient:?Courtney Vivas L Provider:?Marcellus Lozano DPM :1965???Age:58 Y???Sex:Female D ate:11/19/2023 Address:[address] [place], [place] [id number] Pcp:Roberto Chaudhary MD Subjective: * Chief Complaints: [...] 3. ?Marital status: . 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 * Medications:?Not-Taking/PRNA lbuterol Sulfate HFA 108 [...] - S92.515A? Plan: * Treatment: * Procedure Codes:?11649 X-RAY EXAM OF LEFT FOOT 3V, Modifiers: [...] DPM Date:? 024 Generated for Refugio alexis/Shilpi/eTransmitting on:?01/06/2025 07:20 PM EST History and Physical Notes * [...]
--- OUTSIDE RECORDS SUMMARY | 2025-01-06 19:20 | XMS_ITS | Patient Health Record ---
Author Organization Roberto Chaudhary DO, [facility] Address [address] [place] [id number] Care Team Providers Care Plane Runner Name Role Phone Roberto Chaudhary Primary Care Provider [phone] Sav Dunn MD Unavailable Unavailable ALLERGIES Allergen (clinical drug ingredient) Drug/Non Drug Allergy documented on EMR Reaction Allergy Type Onset Date Status Penicillin childhood reaction Drug Allergy Active RESULTS Component Value Reference Range Notes Blood Urea Nitrogen Reviewed date:06/14/2024 11:47:02 AM Interpretation:Normal Performing Lab:[facility], [address] [place] [phone] Notes/Report: Blood Urea Nitrogen 16 9-16 mg/dL Creatinine Reviewed date:06/14/2024 11:47:02 AM Interpretation:Normal Performing Lab:[facility], [address] [place] [phone] Notes/Report: Creatinine 0.75 0.5-1.4 mg/dL Estimated Glomerular Filt Rate > 60 NOTE: For -Finnish individuals, multiply the result by 1.210. Chronic Kidney Disease: Estimated GFR < 60 mL/min/1.73m2 Severe Kidney Disease: Estimated GFR < 15 mL/min/1.73m2 CT chest w con Reviewed date:07/22/2024 03:29:24 PM Interpretation:Abnormal Performing Lab: Notes/Report: [address] [address] [address] Scan Report Signed Patient: Courtney Garcia MR#: [id number] : 1965 Acct:[id number] Age/Sex: 58 / F ADM Date: 06/30/24 Loc: .CT Attending Dr: Roberto Chaudhary DO Ordering Physician: Roberto Chaudhary DO Date of Service: 06/30/24 Procedure(s): CT chest w IV con Accession Number(s): [id number] cc: Roberto Chaudhary DO EXAMINATION: CT CHEST [...] iterative reconstruction technique DLP: 159 mGy-cm FINDINGS: SENIOR PROPERTY MANAGER: 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 LUNGS: Trachea bronchi are patent. [...] 07/22/24 1337 DD/ 0821 TD/TT: 06/30/24 0835 Batchmaker: US thyroid Reviewed date:09/03/2024 10:16:32 AM Interpretation:Abnormal Performing Lab: Notes/Report: [address] [address] Ultrasound Report Signed Patient: Courtney Garcia MR#: [id number] [id number] : 1965 Acct:[id number] Age/Sex: 58 / F ADM Date: 08/14/24 Loc: HO.US Attending Dr: Roberto Chaudhary DO Ordering Physician: Roberto Chaudhary DO Date of Service: 08/14/24 Procedure(s): US thyroid Accession Number(s): [id number] cc: Roberto Chaudhary DO EXAMINATION: US THYROID [...] than or equal to 1 cm: 1. Anesthesia Resident nodules are described as follows: 1. Location: [...] aspiration recommended. This study was presented to [facility] on [facility] 03, 2024 for interpretation. PSA [...] in OV> 09/03/2424 DD/ TD/TT: 08/14/24 0749 Batchmaker: Complete Blood Count Auto Di ff Reviewed date:09/09/2024 12:39:07 PM Interpretation:Abnormal Performing Lab:[facility], [address] [place] [phone] Notes/Report: White Blood Count 7.9 4.8-10.8 X10*3/uL [...] NRBC Abs Auto 0.000 0.0-0.012 X10*3/uL Comprehensive [place]. Panel Fa st Reviewed date:09/09/2024 01:26:35 PM Interpretation:Normal Performing Lab:[facility], [address] [place] [address] Notes/Report: Sodium 142 135-145 mmol/L Potassium 4.1 3.3-5.1 mmol/L Chloride 107 96-108 mmol/L Carbon Dioxide 26 22-29 mmol/L Anion Gap 13 12-20 Blood Urea Nitrogen 13 9-16 mg/dL Creatinine 0.75 0.5-1.4 mg/dL Estimated Glomerular Filt Rate > 60 NOTE: For -Finnish individuals, multiply the result by 1.210. Chronic [...] Panel Reviewed date:09/09/2024 02:20:23 PM Interpretation:Abnormal Performing Lab:[address] [address] Notes/Report: Triglycerides 92 <150 mg/dL Desirable Triglyceride: [...] Total Reviewed date:09/09/2024 01:26:35 PM Interpretation:Normal Performing Lab:[address] [address] Notes/Report: Vitamin D 25-OH Total 32.3 >30 [...] Hormone Reviewed date:09/09/2024 01:26:35 PM Interpretation:Normal Performing Lab:[facility], [address] [place] [phone] Notes/Report: Thyroid Stimulating Hormone 1.95 0.32-4.0 uIU/ mL TSH 3rd Generation ([facility]) Pathology Reviewed date:09/19/2024 03:39:17 PM Interpretation:Non-diagnostic Performing Lab:[facility], [address] [place] [phone] Notes/Report: REASON FOR REFERRAL Reason Emphysema Abnormal C hest CT Scan Diagnosis 1 Pulmonary emphysema, unspecified emphysema type (J43.9) Referral Organization Roberto Isidro FACP Referring Provider First Name Roberto Referring Provider Last Name Jet Referring Provider [facility] edicine Referred Provider Gavin Kellogg Referred Provider Specialty Pulmonary Di seases General Notes Page,Zhanna 4 03:59:39 PM EDT > Referral faxed prior to scheduling Referral Priority Routine Reason PHYSICS TUTOR examination Diagnosis 1 Encounter for genera l adult medical examination without abnormal findings (Z00.00) Referral Organization Roberto Isidro FACP Referring Provider First Name Roberto Referring Provider Last Name Jet Referring Provider [facility] edicine Referred Provider Jerrod Whyte Referred Provider Specialty OB - Gynecol ogy General Notes Page,Zhanna 4 04:31:06 PM EDT > Referral faxed prior to scheduling Referral Priority Routine Reason Nasal obstruction Diagnosis 1 Encounter for genera l adult medical examination without abnormal findings (Z00.00) Referral Organization Roberto Isidro FACP Referring Provider First Name Roberto Referring Provider Javi Name Jet [facility] Referred Provider Christopher Nicole Referred [...] Referring Provider Last Name Jet Referring Provider [facility] edicine Referred Provider Virgen Prieto Referred Provider Specialty Orthopedic S urgery Referral Priority Routine Reason Thyroid nodule Diagnosis 1 Disorder of thyroid, unspecified (E07.9) Referral Organization Roberto Isidro FACP Referring Provider First Name Roberto Referring Provider Last Name Jet [facility] Referred Provider Heide Desir Referred Provider Specialty Endocrinolog y General Notes Mikki Solares 024 10:50:06 AM EDT > referral faxed; patient notified., Mikki Solares 09/03/2024 01:41:12 PM EDT > referral faxed manually., Zhanna Hill 09/08/2024 10:26:40 AM EDT > Niki at [facility] Endo ask we fax referral and notes to [phone] Referral Priority Routine Referral Appointment Date 09/09/2024 Reason Right wrist pain Diagnosis 1 Right wrist pain (M2 5.531) Referral Organization Roberto Isidro FACP Referring Provider First Name Roberto Referring Provider Last Name Jet Referring Provider [facility] Internal edicine Referred Provider Virgen Prieto Referred [...] (E07.9) Active confirmed Disorder of thyroid gland (20589005) Problem Palpitations (R00.2) Active confirmed 80777776 Problem Pulmonary emphysema, unspecified emphysema type (J43.9) Active confirmed 98251099 Problem Obstructive sleep apnea (G47.33) Active confirmed 37972923 Problem Reactive depression (F32.9) Active confirmed 01895828 Problem Nonintractable episodic headache, unspecified headache type (R51) Active confirmed 65522474 Problem Thyroid cyst (E04.1) Active confirmed 31742390 VITAL SIGNS Blood pressure diastolic 60 mm Hg 09/02/2024 Height 68.25 in 09/02/2024 Blood pressure systolic 112 mm Hg 09/02/2024 Weight 216 lbs 09/02/2024 BMI 32.60 kg/m2 09/02/2024 Encounters Encounter Location Date Provider Diagnosis Roberto Chaudhary DO, [facility] [address] [place], [place] [phone] 07/22/2024 Roberto Chaudhary DO, [facility] [address] [place], [place] [phone] 09/02/2024 Roberto Chaudhary Encounter for genera l adult medical examination without abnormal findings Z00.00 Roberto Chaudhary DO, [facility] [address] [place], [place] [phone] 03/26/2024 Roberto Chaudhary Infraclavicular lymphadenopathy R59.0 and Wheezing R06.2 Roberto Chaudhary DO, [address] [phone] 03/26/2024 Roberto Chaudhary DO, [address] [phone] 04/09/2024 Roberto Chaudhary Infraclavicular lymphadenopathy R59.0 Roberto Chaudhary DO, [address] [phone] 07/22/2024 Roberto Chaudhary Pulmonary emphysema, unspecified emphysema type J43.9 and Thyroid cyst E04.1 Rboerto Chaudhary DO, [address] [phone] 09/17/2024 Roberto Chaudhary Right wrist pain M25.531 Roberto Chaudhary DO, [address] [phone] 09/23/2024 Roberto Chaudhary ASSESSMENTS Encounter Date Diagnosis Assessment Notes Treatment Notes Treatment Clinical Notes 09/02/2024 Encounter for genera adult medical examination without abnormal findings (ICD-10 - Z00.00) 03/26/2024 Wheezing (ICD-10 - R06.2) 03/26/2024 Infraclavicular lymphadenopathy (ICD-10 - R59.0) 04/09/2024 Infraclavicular lymphadenopathy (ICD-10 - R59.0) 07/22/2024 Pulmonary emphysema, unspecified emphysema type (ICD-10 - J43.9) 09/17/2024 Right wrist pain (ICD-10 - M25.531) 07/22/2024 Thyroid cyst (ICD-10 - E04.1) PLAN OF TREATMENT Pending Test Test Name Order Date US thyroid 07/22/2024 XR wrist RT min 3V 09/17/2024 Insurance Providers Payer Name Payer Address Payer Phone Subscriber Number Group Number Insured Name Patient Relationship to Insured Coverage Start Date Coverage End Date [facility] [address] [place], [place] [id number] [phone] [id number] Courtney Garcia Self - patient is the insured MEDICAL (GENERAL) HISTORY Medical History History ICD Code obstructive sleep apnea osteoarthritis Reactive depression F32.9 Palpitations R00.2 Nonintractable episodic headache, unspec ified headache type R51 Subacute cough R05.2 Surgical History Surgery Date(Month/Year) tonsillectomy wisdom teeth extraction
== END 2025-01-06 16:30 | disposition home or self-care (01) ==
PROVIDERS: PCP Internal Medicine; Visit Provider Internal Medicine
DX: G47.33 Obstructive sleep apnea (adult) (pediatric) (principal); G47.34 Idiopathic sleep related nonobstructive alveolar hypoventilation; M26.19 Other specified anomalies of jaw-cranial base relationship
CPT/HCPCS: 99213

== ENCOUNTER → 2025-01-06 15:32 | Outpatient (BNVA) | payer BC, SELFPAY | PROVIDERS: PCP Internal Medicine; Visit Provider Internal Medicine ==

== ENCOUNTER 2025-02-09 08:54 | Day surgery (SDC) | payer BC, SELFPAY ==
[2025-02-06 14:08] VITALS: BMI 40.6
[2025-02-09 09:03] VITALS: BP 180/72; PULSE 75; RESP 18; TEMP 36.6; O2SAT 97
--- NOTE | 2025-02-09 13:00 | MHC.SHP ---
Pre-Procedural Eval Section A - 24 Hr Update-Section A only Date of Service: 02/09/25 The patient is an INPATIENT: No Changes since office visit: No Cold of Flu in the past 2 weeks, No New Medical Problems, No Changes in Medication and No Patient answered all questions The patient has been examined within 24 hours of the surgical procedure. The History & Physical has been completed within 30 days and I have reviewed it.: Yes Section B - Complete if H&P > 30 days Chief Complaint: Radial styloid tenosynovitis [de Quervain] Allergies: Allergies Allergy/AdvReac Type Severity Reaction Status Date / Time Penicillins Allergy Intermediate RASH Verified 01/06/25 16:30 Plan Diagnosis/Plan: Unchanged I have reviewed the history and physical and performed a pertinent physical examination on my patient. No changes have occurred unless specified. Time Spent With Patient Time: Total time managing care of this patient today ____ minutes.
--- NOTE | 2025-02-09 13:01 | P.OP_ITS ---
Operative Note Operative Note Date of Service: 02/09/25 Narrative: Operative Note Preop diagnosis: 1. Right DeQuervain's tenosynovitis Postop diagnosis: 1. Right DeQuervain's tenosynovitis Procedure: 1. Right 1st dorsal compartment release Surgeon: Virgen Prieto MD Medical Coding Manager: None Anesthesia: local block using 1% lidocaine with epinephrine Findings: Significantly Thickened 1st dorsal compartment. EPB in a separate compartment EBL: Less than 5 mL Tourniquet time: None Specimens: None Complications: None Disposition: Brought to recovery room in stable condition Plan: Follow-up for 7-10 days for wound check and suture removal Indications: The patient is 59 years old, with right DeQuervain's tenosynovitis that has been unresponsive to nonoperative management. The risks and benefits of operative treatment including but not limited to risk of damage to blood vessels, nerves, tendons, infection, persistent pain, persistent symptoms, recurrence or possible need for additional surgery were discussed with the patient and the patient wishes to proceed with surgery. Procedure: Once consent was obtained a local block was performed in the preop area using a combination of 1% lidocaine with epinephrine. The patient was then brought back to the operating suite and placed on the operative table in supine position. The right upper extremity was prepped and draped in a standard surgical fashion. Once assured that we had a good block, a 1.5 cm longitudinal incision was made centered over the 1st dorsal compartment as it passed over the radial styloid of the right wrist. The incision was made through the skin to the subcutaneous tissues using a #15 blade. Careful dissection was made down to the level of the 1st dorsal compartment using tenotomy scissors, with care being taken to protect the nearby branches of the superficial radial nerve. Once the 1st dorsal compartment was exposed, A longitudinal incision was made in the 1st dorsal compartment 1st using a #15 blade, then using tenotomy scissors under direct visualization. The 1st dorsal compartment was noted to be significantly thickened. The EPB tendon was noted to be in a separate compartment. I also released the EPB tendon within its compartment by making an incision longitudinally with a 15. Blade and iris scissors. Following our release, we saw smooth gliding abductor pollicis longus and extensor pollicis brevis tendons. Once satisfied with our 1st dorsal compartment release the wound was copiously irrigated with normal saline and hemostasis was obtained with a brief period of local pressure. The subcutaneous layer was closed with some 4-0 V icryl suture, and the skin edges were reapproximated with some 5.0 nylon suture material. A sterile dressing was applied. The patient appears to have tolerated the procedure well and with no compl ications. All digits were well vascularized at the conclusion of the case.
[2025-02-09 13:38] VITALS: BP 141/81; PULSE 79; O2SAT 97
== END 2025-02-09 13:50 | disposition home or self-care (01) ==
PROVIDERS: PCP Internal Medicine; Visit Provider Orthopaedic Surgery
PROC: (CPT 25000; principal; 2025-02-09 11:10)
DX: M65.4 Radial styloid tenosynovitis [de Quervain] (principal); M25.531 Pain in right wrist; M19.041 Primary osteoarthritis, right hand; R09.02 Hypoxemia; R40.0 Somnolence; M26.19 Other specified anomalies of jaw-cranial base relationship; E04.1 Nontoxic single thyroid nodule; G43.909 Migraine, unspecified, not intractable, without status migrainosus; G47.33 Obstructive sleep apnea (adult) (pediatric); E66.9 Obesity, unspecified; Z68.32 Body mass index [BMI] 32.0-32.9, adult; Z88.0 Allergy status to penicillin
CPT/HCPCS: 25000; J0171; J2003

== ENCOUNTER → 2025-02-09 08:54 | Outpatient (BNV) | payer BC, SELFPAY | PROVIDERS: PCP Internal Medicine; Visit Provider Orthopaedic Surgery | DX: M65.4 Radial styloid tenosynovitis [de Quervain] (principal) | CPT/HCPCS: 25000 ==

== ENCOUNTER 2025-02-24 14:51 | Outpatient (AMB) | payer BC, SELFPAY ==
--- NOTE | 2025-02-24 14:52 | A.OFFVIS_ITS ---
Vital Signs 02/24/25 14:58 Height 5 ft 2 in Weight 222 lb BMI 40.6 Intake Visit Reasons: PO RT CORRECTION release 02/09/25 AR Intake Note: Courtney is a 59 year old right hand dominant female who presents today post operatively s/p right 1st dorsal compartment release, DOS: 02/09/25. Sutures removed and steri strips applied. Patient reports that she is doing well with no concerns. She has been leaving the incision open to air while at home but covering while at work. Allergies Penicillins Allergy (Intermediate, Verified 02/24/25 14:58) RASH [facility] Medical History Nocturnal hypoxemia Somnolence, daytime Retrognathia Solitary thyroid nodule YASMANY (obstructive sleep apnea) Obesity (BMI 30-39.9) Sleep apnea Migraine Surgical History Hx of tonsillectomy Family History Mother Colon cancer Father Colon cancer Social History Alcohol intake: current Alcohol intake frequency: holidays/special occasions only Patient Tobacco Use Status: Never used Tobacco Current occupational status: employed Female Reproductive History Menstrual Age of Menarche: 14 Physical Exam Vital Signs: BMI result Body Mass Index 40.6 Assessment & Plan Assessment & Plan (1) De Quervain's tenosynovitis, right: Code(s): M65.4 - Radial styloid tenosynovitis [de Quervain] Category: Medical Plan History of Present Illness The patient is a 59-year-old female presenting for a post-operative evaluation following a right first dorsal compartment release. She reports symptomatic relief, noting improved function and reduced swelling at the surgical site. The patient identifies a minor area of redness, attributing it to suture irritation, but denies pain or signs suggestive of infection. Sutures had been removed by the patient's at home. She describes an absence of pain during common hand activities and denies significant swelling compared to the contralateral limb. Review of Systems - Musculoskeletal: Reports improvement in right hand function, denies pain on movement, slight residual swelling. - Skin: Reports minor redness at incision site, denies pain. - General: Denies significant ongoing pain or discomfort. Systems reviewed and are negative except as per HPI and below Physical Exam Patient is alert, oriented, and in no acute distress. Neuro: Normal sensation of the tips of all digits of the right hand at this time Vascular: Cap refill brisk Pain: No tenderness to palpation about the incision site over the 1st dorsal compartment of the right wrist Angus test improved dramatically from previous visit ROM: Patient is able to make a closed fist and extend all digits of the right hand fully Skin: Well approximated and well healing incision site noted over the 1st dorsal compartment of the right wrist There is some mild redness surrounding the incision, however this appears to be more consistent with suture irritation than any infection No lacerations or abrasions. General: No ecchymosis, erythema, or evidence of infection. Psych: Appears grossly normal Affect normal Attitude cooperative Results Procedure Plan For the post-operative management of right first dorsal compartment release, the patient is advised to avoid submerging the hand in water for another week and limit weight-bearing activities for two weeks. A comfort cool thumb spica brace will be provided, and referral to occupational therapy is recommended to enhance range of motion and strength. Follow-up is planned for four to six weeks to evaluate progress. Instruction is given to report any increase in redness or swelling, though this is not presently suspected. Patient was informed and verbally consented to the use of an ambient scribe for clinic note documentation during this visit. Discussion Notes I discussed with the patient the management plan, emphasizing the importance of avoiding water exposure and limiting heavy lifting for the specified durations to ensure proper healing. We talked about the role of the thumb spica brace in supporting the hand while allowing function, and the benefits of occupational therapy for rehabilitation of hand movement and strength. I assured her that the redness at the incision site does not currently appear infected, but advised caution to monitor for signs of infection and to reach out if worsening symptoms occur. The patient understands and consents to the plan, and we will have a follow-up in four to six weeks to assess recovery and progression towards normal activities. Patient Instructions - Avoid submerging the right hand in water for one more week. - Limit right hand use to light objects like a cell phone for two more weeks. - Wear the provided thumb spica brace for support and function. - Begin occupational therapy as recommended for hand exercises. - Monitor the incision site; report any increased redness, swelling, or pain. - Follow up in four to six weeks to assess healing progress. Orders: Orders OT Evaluation and Treatment Today M65.4 - Radial styloid tenosynovitis [de Quervain] Coding Level of Care Code Global (81266) Diagnoses De Quervain's tenosynovitis, right M65.4
[2025-02-24 14:58] VITALS: BMI 40.6
== END 2025-02-24 15:13 | disposition home or self-care (01) ==
LOC: HO.HOS 14:51
PROVIDERS: PCP Internal Medicine
DX: M65.4 Radial styloid tenosynovitis [de Quervain] (principal)
CPT/HCPCS: 99024

== ENCOUNTER 2025-03-03 09:30 | Outpatient (AMB) | payer BC, SELFPAY ==
--- NOTE | 2025-03-03 09:31 | A.OFFPC_ITS ---
Vital Signs 03/03/25 09:42 Height 5 ft 8 in Weight 222 lb BMI 33.8 BP 122/62 Blood Pressure Location Rt brachial Pulse 85 Pulse Source Pulse Oximeter Temp 97.0 F Pulse Oximetry (%) 93 Intake Visit Reasons: lesion on leg Intake Note: Has a spot on the back of her left calf Allergies Penicillins Allergy (Intermediate, Verified 03/03/25 10:00) RASH Medication List - Last Reconciled 03/03/25 by Ingrid Barkley PA-C lorazepam 0.5 mg PO BEDTIME PRN 2 weeks naproxen sodium (Aleve) 220 mg PO BID PRN HPI lesion on leg HPI Details The patient is a 59-year-old female presenting with a lesion on her left leg that has been present for several months. Initially, she thought it was a bug bite; however, the lesion has persisted without signs of healing. She describes the lesion as not itchy and without any other similar lesions on her body. Her , who is a physician, has not expressed concern regarding the lesion. Despite this, she is seeking a referral to dermatology for assessment, given the lesion's duration. The patient recalls significant sunburns during childhood, although none affecting the current lesion's location. Additionally, she reports a minor recurring spot on her face with associated redness and flakiness. Her medical history includes osteoarthritis and nocturnal hypoxemia, for which she uses continuous positive airway pressure therapy. She also has a history of palpitations, and no recent tick bites, though she experienced a tick bite many years ago. Social History - History of significant sunburns during childhood - Spouse is a physician [facility] Medical History (Updated 03/03/25 @ 10:05 by Ingrid Barkley PA-C) Class 1 obesity with body mass index (BMI) of 33.0 to 33.9 in adult Establishing care with new doctor, encounter for Skin lesion History of mammogram (~12/16/24) Osteoarthritis Palpitations Reactive depression Nocturnal hypoxemia Somnolence, daytime Retrognathia Solitary thyroid nodule YASMANY (obstructive sleep apnea) Obesity (BMI 30-39.9) Sleep apnea Migraine Surgical History History of colonoscopy (~09/10/23) Hx of tonsillectomy Family History Mother Colon cancer Father Colon cancer Social History Alcohol intake: current Alcohol intake frequency: holidays/special occasions only Patient Tobacco Use Status: Never used Tobacco Current occupational status: employed Female Reproductive History Menstrual Age of Menarche: 14 Questionnaire PHQ-9 Over the last 2 weeks, how often have you been bothered by any of the following problems? 1. Little interest or pleasure in doing things: not at all 2. Feeling down, depressed, or hopeless: not at all 3. Trouble falling or staying asleep, or sleeping too much: nearly every day 4. Feeling tired or having little energy: nearly every day 5. Poor appetite or overeating: nearly every day 6. Feeling bad about yourself - or that you are a failure or have let yourself or your family down: not at all 7. Trouble concentrating on things, such as reading the newspaper or watching television: several days 8. Moving or speaking so slowly that other people could have noticed. Or the opposite - being so fidgety or restless that you have been moving around a lot more than usual: not at all 9. Thoughts that you would be better off or of hurting yourself in some way: not at all Total score: 10 Depression Screening Interpretation: Positive Depression Screening Follow-up: Existing condition and In treatment Depression Screening Done: Yes 36062 - PHQ-9 Billing: Yes Source: Developed by Drs. Roberto Hernandez, Bibi Randolph, Aureliano Boyer and colleagues, with an educational mark from [employer]. Thrive Questionnaire Date Thrive assessed: 03/03/25 I am a: Patient What is your living situation today?: I have a steady place to live Within the past 12 months, did the food you bought not last and you didn't have the money to get more?: Never true Within the past 12 months, did you worry whether your food would run out before you got money to buy more?: Never true Do you have trouble paying for medicines?: No Do you have trouble getting transportation to medical appointments?: No Do you have trouble paying your heating and electricity bill?: No Do you have trouble taking care of your child, family member or friend?: No Do you have trouble with day-to-day activities such as bathing, preparing meals, shopping, managing finances, etc.?: No Are you currently unemployed and looking for a job?: No Are you interested in more education?: No THRIVE Score: 0 AUDIT C Alcohol Use Questionnaire (AUDIT-C) 1. How often do you have a drink containing alcohol?: Monthly or less 2. How many drinks containing alcohol do you have on a typical day when you are drinking?: 1 or 2 3. How often do you have six or more drinks on one occasion?: Never Total Score: 1 Score Reviewed/Action Taken: No SHAMAR-7 AMB Questionnaire SHAMAR-7 Date SHAMAR - 7 assessed: 03/03/25 Feeling nervous, anxious, or on edge: 1 = Several days Not being able to stop or control worryin = Not at all Worrying too much about different things: 1 = Several days Trouble relaxin = Several days Being so restless that it is hard to sit still: 0 = Not at all Becoming easily annoyed or irritable: 1 = Several days Feeling afraid as if something awful might happen: 0 = Not at all Total SHAMAR-7 score (0-4 normal; 5-9 mild; 10-14 moderate; 15-21 severe): 4 Source: Developed by Drs. Roberto Hernandez, Bibi Randolph, Aureliano Boyer and colleagues, with an educational mark from [employer]. SHAMAR-7 Assessment Billing SHAMAR-7 Assessment Tool: SHAMAR-7 Assessment 82312 Review of Systems Const Details: - Skin: Reports lesion on left leg; reports minor recurring spot on face - General: Denies recent tick bites or new skin lesions - Respiratory: Denies symptoms of systemic infection Physical exam (Primary Care) Vital Signs: Last Vital Signs Temp 97.0 F 03/03/25 09:42 Pulse 85 03/03/25 09:42 BP 122/62 03/03/25 09:42 Pulse Ox 93 03/03/25 09:42 Care Plan Goal for BP management: <130/90 at Goal BMI result Body Mass Index 33.8 BMI Assessment/Plan discussion: High BMI High, discussed plan: lifestyle, weight reduction, dietary, physical activity and alcohol moderation Tobacco/Smoking Status: Tobacco use Status Patient Tobacco Use Status Never used Tobacco 03/03/25 09:35 PHQ-9: PHQ-9 Score PHQ-9: Total score 10 03/03/25 09:47 Depression Screening Interpretation: Positive Depression Screening Follow-up: Existing condition and In treatment Thrive Assessment: Date of Thrive Assessment Date Thrive assessed 03/03/25 03/03/25 09:47 Const Other: Appearance: Alert. Oriented X3. No acute distress. Head: Normal external exam. Normocephalic. Atraumatic. Eyes: Pupils are equal, round, and reactive to light. Extraocular movements intact. Conjunctiva and sclera normal. Eyelids normal. Throat: Pharynx normal. Uvula midline. Moist mucous membranes. Neck: Normal inspection. Neck supple. Full range of motion. Cardiovascular: Normal heart rate and rhythm. Heart sound normal. No murmurs noted. Respiratory: No respiratory distress. Painless inspiration. Breath sounds normal. No wheezes/rales/rhonchi noted. No accessory muscle usage noted or decreased air movement noted. Back: Full range of motion noted. Skin: Skin warm and dry. Normal skin color. Normal skin turgor. Dry dermatitis lesions noted on left posterior calf, no signs of infection. No other rashes/lesions/lacerations noted. Extremities: No lower extremity edema. Extremities exhibit normal range of motion. Coding Level of Care Code New Pt Level 3 (00696) Complex EM visit Add On G2211 Diagnoses Skin lesion L98.9 Establishing care with new doctor, encounter for Z76.89 Class 1 obesity with body mass index (BMI) of 33.0 to 33.9 in adult E66.811; Z68.33 Nocturnal hypoxemia G47.34 Additional Codes PHQ-9 - 75547 - PHQ-9 Billing: Yes ([id number]) SHAMAR-7 Assessment Billing - SHAMAR-7 Assessment Tool: SHAMAR-7 Assessment 43994 ([id number]) Assessment & Plan Assessment & Plan (1) Skin lesion: Code(s): L98.9 - Disorder of the skin and subcutaneous tissue, unspecified Category: Medical Plan: A persistent lesion on the left leg warrants referral to dermatology. The patient will follow up with dermatology to examine and, if needed, proceed with a biopsy. Condition is chronic and stable continue to monitor. (2) Establishing care with new doctor, encounter for: Code(s): Z76.89 - Persons encountering health services in other specified circumstances Category: Medical (3) Class 1 obesity with body mass index (BMI) of 33.0 to 33.9 in adult: Code(s): E66.811 - Obesity, class 1; Z68.33 - Body mass index [BMI] 33.0-33.9, adult Category: Medical Plan: Patient to improve her diet and exercise regimen. Condition is chronic and stable continue to monitor. (4) Nocturnal hypoxemia: Comment: SHE HAS MILD DEGREE OF NOCTURNAL HYPOXEMIA AND THIS IS DEFINITELY DUE TO SLEEP- RELATED HYPOVENTILATION. CLINICALLY SEEMS TO HAVE RESOLVED WITH THE USE OF CPAP. Code(s): G47.34 - Idiopathic sleep related nonobstructive alveolar hypoventilation Category: Medical Plan: Patient to continue CPAP. Condition is chronic and stable continue to monitor. Plan Plan Patient was informed and verbally consented to the use of an ambient scribe for clinic note documentation during this visit. 1. Nocturnal Hypoxemia Current management with CPAP therapy continues, with compliance noted. Monitoring will continue during follow-ups. 2. Skin Lesion A persistent lesion on the left leg warrants referral to dermatology. The patient will follow up with dermatology to examine and, if needed, proceed with a biopsy. During the visit, I discussed the lesion on the patient's left leg, which has persisted for several months. Given the duration and the history of significant sunburns, I advised referral to dermatology for further assessment, possibly including a biopsy, to rule out any underlying pathology. We covered the importance of evaluating the lesion given its persistence. For her nocturnal hypoxemia managed with CPAP, we agreed to maintain the current therapy, and I emphasized the importance of continued compliance. I instructed the patient regarding fasting requirements for upcoming blood work and affirmed her dermatology referral to evaluate her skin concerns further. Orders: Orders Complete Blood Count Auto Diff Today Z00.00 - Encounter for general adult medical examination without abnormal findings Erythrocyte Sedimentation Rate Today Z00.00 - Encounter for general adult medical examination without abnormal findings C Reactive Protein Today Z00.00 - Encounter for general adult medical examination without abnormal findings Hemoglobin A1c Today Z00.00 - Encounter for general adult medical examination without abnormal findings Liver Panel Today Z00.00 - Encounter for general adult medical examination without abnormal findings Vitamin D 25-OH Total Today Z00.00 - Encounter for general adult medical examination without abnormal findings Comprehensive [place]. Panel Fast Today Z00.00 - Encounter for general adult medical examination without abnormal findings Lipid Panel Today Z00.00 - Encounter for general adult medical examination without abnormal findings Magnesium Today Z00.00 - Encounter for general adult medical examination without abnormal findings Vitamin B12 and Folate Today Z00.00 - Encounter for general adult medical examination without abnormal findings Referrals Dermatology Referral L98.9 - Disorder of the skin and subcutaneous tissue, unspecified Patient Instructions: - Follow up with the dermatology referral for the leg lesion evaluation. - Continue using CPAP as instructed for nocturnal hypoxemia. - Schedule and complete fasting blood work prior to the next physical exam. - Watch for any changes in the lesion or the appearance of new symptoms and report them promptly.
[2025-03-03 09:42] VITALS: BP 122/62; PULSE 85; TEMP 36.1; O2SAT 93; BMI 33.8
== END 2025-03-03 09:58 | disposition home or self-care (01) ==
LOC: HO.HMCSH 09:30
PROVIDERS: PCP Internal Medicine; Visit Provider Physician Assistant Medical
DX: L98.9 Disorder of the skin and subcutaneous tissue, unspecified (principal); Z76.89 Persons encountering health services in other specified circumstances; E66.811 Obesity, class 1; Z68.33 Body mass index [BMI] 33.0-33.9, adult; G47.34 Idiopathic sleep related nonobstructive alveolar hypoventilation

== ENCOUNTER → 2025-03-03 09:30 | Outpatient (BNVA) | payer BC, SELFPAY | PROVIDERS: PCP Internal Medicine; Visit Provider Physician Assistant Medical | DX: Z76.89 Persons encountering health services in other specified circumstances (principal); L98.9 Disorder of the skin and subcutaneous tissue, unspecified; E66.811 Obesity, class 1; Z68.33 Body mass index [BMI] 33.0-33.9, adult; G47.34 Idiopathic sleep related nonobstructive alveolar hypoventilation | CPT/HCPCS: 96127 ==

== ENCOUNTER 2025-03-24 15:26 | Outpatient (RCR) | payer BC, SELFPAY ==
--- NOTE | 2025-03-06 14:28 | MHC.OT.EP ---
[address] [phone] Occupational Therapy Plan of Care Patient Name: Courtney Vivas Date of Evaluation: 03/06/25 Diagnosis: S/P CARE HOME RELEASE Pain Location: 1/10 AT REST 2/10 WITH USE RADIAL WRIST Pain Score: 1-2/10 Pain Scale Used: Numeric (0 - 10) Aggravating Factors: HEAVY LIFTING Alleviating Factors: MARQUEZ HUNTLEY Assessment: MS VIVAS IS THREE AND A HALF WEEKS POST OP R FCU RELEASE WITH DR LICONA. SHE IS DOING WELL, AND REPORTS 2/10 PAIN WITH DAILY ADLs AND LIGHT IADLs. SHE IS USING COMPENSATORY STRATEGIES AND WEARING A COMFORT COOL ORTHOSIS NEEDED. A 16% LIMITATION IS REPORTED PER THE QUICK DASH ASSESSMENT. A BRIEF COURSE OF OT IS WARRANTED TO ADDRESS SCAR MOBILIZATION, STRENGTHENING AND Pt EDUCATION FOR A SAFE RETURN TO IADLs. Frequency and Duration: The patient will be seen 1X/WEEK FOR 3 WEEKS Short Term Goals: SEE BELOW Assisted Goals: IND PROGRESSION OF HEP IND SCAR MOBILIZATION STRATEGIES R GROSS GRASP >45 POUNDS REPORT NO DIFFICULTIES WITH RETURN TO IADLs Treatment Plan: Therapeutic Exercise Therapeutic Activity Home Exercise Program Splinting Neuro Re-ed Patient Education Desensitization/Sensory Re-ed Edema Control ADL Training Ultrasound NMES Iontophoresis Paraffin Fluidotherapy MHP Cold Packs Joint Mobilization Soft Tissue Mobilization Kinesiotaping Other (see comments) Electronically Signed By: ELIAN SIMON OTR/L Please Sign and return to therapist. Thank you once again for your referral.
--- NOTE | 2025-03-24 15:47 | MHC.OT.DC ---
[address] [phone] F: [phone] Occupational Therapy Discharge Note Patient Name: Courtney Garcia Provider: Charlie Leos Diagnosis: S/P [facility] RELEASE Date of Surgery: 02/09/25 Date of Evaluation: 03/06/25 Date of Discharge: Treatments to Date: 3 Cancellations to Date: No Shows to Date: Discharge Status: Achieved Goals Discharge Summary: PATIENT HAS MET ALL OF HER GOALS, REPORTS 0/10 PAIN, AND HAS RETURN TO HER PLOF AT THIS TIME SHE HAS COMPLETED HER COURSE OF SKILLED OT. THANK YOU FOR YOUR REFERAL, SHERLY WAS A PLEASURE TO WORK WITH. Electronically Signed By: BERRY MATIAS/Mitra, CLT Reviewed/agree with student documentation: N/A Therapist: Please Sign and return to therapist, thank you for your referral.
== END 2025-03-24 15:47 | disposition home or self-care (01) ==
LOC: HO.OT 15:26
PROVIDERS: PCP Internal Medicine
DX: M65.4 Radial styloid tenosynovitis [de Quervain] (principal)
CPT/HCPCS: 97035; 97110; 97140; 97165; 97535

== ENCOUNTER 2025-04-07 15:21 | Outpatient (AMB) | payer BC, SELFPAY ==
--- NOTE | 2025-04-07 15:32 | MHC.OFFVIS ---
Vital Signs 04/07/25 15:35 Height 5 ft 9 in Weight 220 lb BMI 32.5 Handedness Right Intake Visit Reasons: PO RT SENIOR CARE release 02/09/25 AR Intake Note: Courtney is 59 year old right hand dominant female who presents today for a post operative visit status post right 1st dorsal compartment release, DOS: 02/09/[address] Virgen Prieto. She reports she had 2 or 3 visit of occupational therapy and since has been cleared by them. She reports some tenderness if she accidentally bangs her left hand. Denies any current pain, numbness or tingling. Allergies Penicillins Allergy (Intermediate, Verified 04/07/25 15:35) RASH HPI HPI PO RT SENIOR CARE release 02/09/25 AR: Details: Courtney is 59 year old right hand dominant female who presents today for a post operative visit status post right 1st dorsal compartment release, DOS: 02/09/[address] Virgen Prieto. She reports she had 2 or 3 visit of occupational therapy and since has been cleared by them. She reports some tenderness if she accidentally bangs her left hand. Denies any current pain, numbness or tingling. [facility] Medical History (Updated 03/03/25 @ 10:05 by Ingrid Barkley PA-C) Class 1 obesity with body mass index (BMI) of 33.0 to 33.9 in adult Establishing care with new doctor, encounter for Skin lesion History of mammogram (~12/16/24) Osteoarthritis Palpitations Reactive depression Nocturnal hypoxemia Somnolence, daytime Retrognathia Solitary thyroid nodule YASMANY (obstructive sleep apnea) Obesity (BMI 30-39.9) Sleep apnea Migraine Surgical History History of colonoscopy (~09/10/23) Hx of tonsillectomy Family History Mother Colon cancer Father Colon cancer Social History Alcohol intake: current Alcohol intake frequency: holidays/special occasions only Patient Tobacco Use Status: Never used Tobacco Current occupational status: employed Female Reproductive History Menstrual Age of Menarche: 14 Review of Systems Const All systems reviewed & are unremarkable except as noted in HPI and below Physical Exam Vital Signs: BMI result Body Mass Index 32.5 Extrem Other: Patient is alert, oriented, and in no acute distress. Neuro: Normal sensation of the tips of all digits of the right hand at this time Vascular: Cap refill brisk Pain: Tenderness to palpation of the right radial styloid radiating up into the forearm Positive Angus on the right Negative Angus on the left No tenderness to palpation of the DRUJ, ulnar styloid, or elsewhere in the right hand or wrist Negative CMC grind on the right No tenderness to palpation of the MCP joint of the right thumb ROM: Patient is able to make a closed fist and extend all digits of the right hand fully Skin: No lacerations or abrasions. General: No ecchymosis, erythema, or evidence of infection. Psych: Appears grossly normal Affect normal Attitude cooperative Assessment & Plan Assessment & Plan (1) De Quervain's tenosynovitis, right: Code(s): M65.4 - Radial styloid tenosynovitis [de Quervain] Category: Medical Plan 1. Status post right 1st dorsal compartment release With complete symptom resolution postoperatively Patient appears to be recovering well postoperatively Patient is educated about the typical recovery course At this time, no acute follow-up indicated, as pain has completely resolved No further OT indicated Patient is amenable to this plan Follow-up as needed Coding Level of Care Code Est Pt Level 3 (05782) Diagnoses De Quervain's tenosynovitis, right M65.4
[2025-04-07 15:35] VITALS: BMI 32.5
== END 2025-04-07 15:48 | disposition home or self-care (01) ==
LOC: HO.HOS 15:22
PROVIDERS: PCP Internal Medicine
DX: M65.4 Radial styloid tenosynovitis [de Quervain] (principal)
CPT/HCPCS: 99024

== ENCOUNTER 2025-04-14 14:37 | Outpatient (AMB) | payer BC, SELFPAY ==
[2025-04-14 14:44] VITALS: BP 112/92; BMI 32.7
--- NOTE | 2025-04-14 14:44 | A.OFFVIS_ITS ---
Vital Signs 04/14/25 14:44 Height 5 ft 9 in Weight 221 lb 2 oz BMI 32.7 BP 112/92 H Intake Visit Reasons: New Patient Annual Mud Boss Required: No Information Interpreted: non-clinical & clinical Certified Ophthalmic Medical Technician: Certified Ophthalmic Medical Technician Present (Elizabeth ALAMO) Accompanied by: Self / Same As Patient Allergies Penicillins Allergy (Intermediate, Verified 04/14/25 14:51) RASH Post menopausal: Yes HPI Comments Details: Presenting for annual exam. Complaining of hot flashes. Last Pap/HPV was negative in 04/01 Last Mammogram was BI-RADS 1 in 01/06 Last Colonoscopy was done in 09/03, the recommendation was to repeat in 5 years [facility] Medical History Class 1 obesity with body mass index (BMI) of 33.0 to 33.9 in adult Establishing care with new doctor, encounter for Skin lesion History of mammogram (~12/16/24) Osteoarthritis Palpitations Reactive depression Nocturnal hypoxemia Somnolence, daytime Retrognathia Solitary thyroid nodule YASMANY (obstructive sleep apnea) Obesity (BMI 30-39.9) Sleep apnea Migraine Surgical History History of colonoscopy (~09/10/23) Hx of tonsillectomy Family History Mother Colon cancer Father Colon cancer Social History Alcohol intake: current Alcohol intake frequency: holidays/special occasions only Patient Tobacco Use Status: Never used Tobacco Current occupational status: employed Female Reproductive History Menstrual Age of Menarche: 14 control method: none Total pregnancies: 3 Full term: 3 Number of Living Children: 3 Date of last pap smear: 03/16/21 Date of Mammogram: 12/16/24 History of abnormal mammogram: No Review of Systems Const All systems reviewed & are unremarkable except as noted in HPI and below Card Reports as per HPI Resp Reports as per HPI GI Reports as per HPI and Reports no additional complaints Reports as per HPI Physical Exam Vital Signs: Last Vital Signs BP 112/92 H 04/14/25 14:44 BMI result Body Mass Index 32.7 Const General: cooperative, healthy appearing and comfortable Chest Chest palpation & inspection: normal inspection of the chest and normal palpation of entire chest wall Breast/axilla inspection: normal inspection of the breasts and normal inspection of the axillae Breast/axilla palpation: normal palpation of the breasts, normal palpation of the axillae and no axillary lymphadenopathy Resp Effort & Inspection: normal respiratory effort Auscultation: clear to auscultation bilaterally Percussion: percussion normal Cardio Palpation: normal PMI Rate: regular rate Rhythm: regular rhythm Heart sounds: no murmurs and no rubs Peripheral pulses: Peripheral pulses 2+ throughout GI Inspection: Yes normal to inspection Palpation (GI): Soft to palpation, nontender, no guarding, not rigid and No hepa tosplenomegaly present Percussion: Yes normal to percussion Auscultation: normal bowel sounds Rectal Exam - Female: deferred General: Yes bladder normal to palpation External Female Exam: No lesion Speculum Exam - Vagina: normal appearance of the vagina, normal palpation, normal vaginal discharge and not erythematous Speculum Exam - Cervix: normal appearance of the cervix and normal palpation Bimanual exam- vagina & uterus: normal bimanual exam, normal palpation, uterine size normal, bladder normal to palpation, consistency normal and normal palpation Bimanual Exam- Adnexa, other: normal adnexae, no masses and no tenderness Assessment & Plan Assessment & Plan (1) Well woman exam: Code(s): Z01.419 - Encounter for gynecological examination (general) (routine) without abnormal findings Category: Medical Plan: Co testing not indicated this year. Counseled the patient about the recommended dietary allowance of 1200 mg of Calcium & 600 IU of vitamin D. Instructions given the patient is schedule next screen Mammogram in 01/07. The patient was instructed to perform monthly self-breast exams and schedule annual exam in a year. All questions answered and the patient verbalized understanding. (2) Hot flashes: Code(s): R23.2 - Flushing Category: Medical Plan: Discussed with the patient the options of treatment of hot flashes including hormonal replacement therapy, all the pros, cons, risks and benefits (benefits= prevention of hot flashes, atrophic vaginitis, osteoporosis, decrease colon ca risk; also discussed with the patient the risks of AR, Breast ca, DVT, PE, Strokes). In addition, discussed with the patient non hormonal treatment options for hot flashes treatment in surgical menopausal patient. Options discussed with the patient include the following: SSRI/SNRIs , difficulty has been demonstrated in multiple trials clinical response is more rapid (days) than typical response to SSRI for depression (weeks), they are equally effective in natural versus surgical menopause, they have similar modest benefit for hot flashes; Citalopram 20 mg per day is another 1st choice option. Prescription sent. Instructions given the patient to schedule a 30 day follow-up appointment. All questions answered, the patient verbalized understanding Medications: New citalopram 20 mg PO DAILY 30 tabs 0RF Coding Level of Care Code Est Pt Prev Care 40-64y(56252) Diagnoses Well woman exam Z01.419 Hot flashes R23.2
== END 2025-04-14 15:57 | disposition home or self-care (01) ==
LOC: HO.HWS 14:38
PROVIDERS: PCP Internal Medicine; Visit Provider Obstetrics & Gynecology
DX: Z01.419 Encounter for gynecological examination (general) (routine) without abnormal findings (principal); R23.2 Flushing
CPT/HCPCS: 99396; 99459

== ENCOUNTER 2025-05-06 09:53 | Outpatient (AMB) | payer BC, SELFPAY ==
--- NOTE | 2025-05-06 09:57 | MHC.OFFVIS ---
Vital Signs 05/06/25 09:58 Height 5 ft 9 in Weight 220 lb 7.396 oz BMI 32.6 BP 104/68 Blood Pressure Location Lt brachial Position Sitting Pulse 84 Pulse Source Pulse Oximeter Pulse Oximetry (%) 95 Oxygen Delivery Method Room Air Intake Visit Reasons: COPD Intake Note: pt is here for follow up of YASMANY and cpap is not going too well, she received a new mask that she is not really liking, cpap was causing more interruptions in sleep Oral Health Therapist Required: No Allergies Penicillins Allergy (Intermediate, Verified 05/06/25 10:26) RASH Medication List - Last Reconciled 05/06/25 by Tina Vergara MD citalopram 20 mg PO DAILY lorazepam 0.5 mg PO BEDTIME PRN 2 weeks naproxen sodium (Aleve) 220 mg PO BID PRN Do you need a note to return to daycare/school/sports/work: No HPI HPI COPD: Details: 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 Her obstructive sleep apnea is contributed by mild retrognathia, ( overbite) and moderate obesity. She has difficulty in using the CPAP , due to claustrophobia . She can not use nasal mask as she is a mouth breather, would not like to try chinstrap with a nasal mask. Has tried various kinds of fullface mask. She was told that she could take lorazepam 0.5 mg before she puts on the CPAP, to reduce claustrophobic feelings. She has used the CPAP only about 5 nights during the past month. She claims that she does not sleep well with the mask on, and actually is sleeping better without the mask on. Denies any daytime sleepiness. She is on citalopram 20 mg daily and lorazepam 0.5 mg at bedtime only p.r.n. [facility] Medical History Class 1 obesity with body mass index (BMI) of 33.0 to 33.9 in adult Establishing care with new doctor, encounter for Skin lesion History of mammogram (~12/16/24) Osteoarthritis Palpitations Reactive depression Nocturnal hypoxemia Somnolence, daytime Retrognathia Solitary thyroid nodule YASMANY (obstructive sleep apnea) Obesity (BMI 30-39.9) Sleep apnea Migraine Surgical History History of colonoscopy (~09/10/23) Hx of tonsillectomy Family History Mother Colon cancer Father Colon cancer Social History Alcohol intake: current Alcohol intake frequency: holidays/special occasions only Patient Tobacco Use Status: Never used Tobacco Current occupational status: employed Female Reproductive History Menstrual Age of Menarche: 14 Review of Systems Const All systems reviewed & are unremarkable except as noted in HPI and below Eyes Reports no additional complaints ENT Reports no additional complaints Card Denies chest pain, Denies irregular heart rhythm and Denies leg edema Resp Reports no additional complaints GI Reports no additional complaints Reports no additional complaints Musc Reports no additional complaints Skin/Breast Reports system reviewed and no additional complaints, except as documented Neuro Reports no additional complaints Psych Reports no additional complaints Endo Reports no additional complaints Physical Exam Vital Signs: Last Vital Signs Pulse 84 05/06/25 09:58 BP 104/68 05/06/25 09:58 Pulse Ox 95 05/06/25 09:58 Oxygen Delivery Method Room Air 05/06/25 09:58 BMI result Body Mass Index 32.6 Const General: healthy appearing (EXCEPT FOR BEING OVERWEIGHT), comfortable, no acute distress, alert and awake Orientation/consciousness: patient oriented x3 HEENT Head: Yes normal to inspection General nose exam: No nasal polyps present and No nasal discharge present Face and sinus: Yes sinuses nontender Mouth: oropharynx abnormals (MODERATELY NARROW AND CROWDED, MALLAMPATI CLASS 3) Teeth and gingiva: other (RETROGNATHIA OF THE LOWER JAW) Throat: Yes posterior oropharynx normal Eyes General: appearance normal, both eyes and all related structures Neck Neck: Yes normal visual inspection, Yes no lymphadenopathy, Yes trachea midline and Yes no JVD Thyroid: Thyroid normal Chest Chest palpation & inspection: normal inspection of the chest, normal palpation of entire chest wall and no tenderness Resp Effort & Inspection: normal respiratory effort Auscultation: clear to auscultation bilaterally, no crackles and no wheezes Cardio Palpation: normal PMI Rate: regular rate Rhythm: regular rhythm Heart sounds: no gallops and no murmurs Peripheral pulses: Peripheral pulses 2+ throughout GI Palpation (GI): Soft to palpation, nontender, No hepatosplenomegaly present and no masses Auscultation: normal bowel sounds Back/Spine/Pelvis Thoracic/Lumbar Spine: thoracic and lumbar spine normal to inspection Skin General skin exam: no rashes or lesions noted Neuro General: patient oriented x3 and no focal motor deficits Cranial nerves: Yes CN's II-XII intact bilaterally Extrem General: Yes normal to inspection, Yes no clubbing, cyanosis or edema and Yes no calf tenderness Psych Appearance: grossly normal and well kempt Speech and movement: Normal speech and movement present Results Reviewed Results Reviewed: Compliance report for the last 30 nights reviewed. During the past month she has used only for 5 nights. Average usage per night 5 hours 59 minutes. When she does use the CPAP the YASMANY is fairly well controlled with residual AHI only 2.4 Assessment & Plan Assessment & Plan (1) Obesity (BMI 30-39.9): Comment: PATIENT IS MODERATELY OBESE, WEIGHT HAS REMAINED STABLE OVER THE PAST FEW YEARS. Code(s): E66.9 - Obesity, unspecified Category: Medical Plan: Continues trying to lose weight. She understands very well about the diet and also the need to do exercise on a daily basis. (2) Retrognathia: Comment: PATIENT WAS ASKING ABOUT WHAT ARE THE REASONS FOR A SLEEP APNEA. I EXPLAINED TO HER ABOUT RETROGANTHIA OF THE LOWER JAW AND AND ALSO BEING OVERWEIGHT. Code(s): M26.19 - Other specified anomalies of jaw-cranial base relationship Category: Medical Plan: She understands well. The only correctable thing is to lose weight , and she is going to try more seriously (3) YASMANY (obstructive sleep apnea): Comment: THE HOME-BASED SLEEP STUDY IN 2024 CONFIRMED THAT SHE HAS MILD TO MODERATELY SEVERE OBSTRUCTIVE SLEEP APNEA. SHE HAD SIGNIFICANT DEGREE OF SNORING. SHE ALSO HAD MILD NOCTURNAL HYPOXEMIA. PATIENT HAD DECIDED TO USE THE CPAP AGAIN. CONTINUES TO HAVE TROUBLE WITH THE CPAP MASK, AND SAY IS SHE FINDS IT MORE DIFFICULT TO SLEEP WITH THE MASK ON THAN WITHOUT. WITH THE HELP OF LORAZEPAM 0.5 MG WHICH SHE HAD TO TAKE ONLY FOR A FEW NIGHTS, SHE WAS ABLE TO TOLERATE THE FULLFACE MASK. DURING THE PAST MONTH SHE HAS USED ONLY FOR 5 NIGHTS. I THINK HER ANXIETY AND FEELING OF CLAUSTROPHOBIA IS THE MAIN REASON WHY SHE CAN NOT USE THE CPAP EVERY NIGHT. Code(s): G47.33 - Obstructive sleep apnea (adult) (pediatric) Category: Medical Plan: WE HAD A LENGTHY DISCUSSION. SHE IS WELL READ AND UNDERSTANDS ABOUT THE ETIOLOGY OF HER SLEEP APNEA AND TREATMENT OPTIONS. DISCUSSED ABOUT RENNY DENTAL DEVICE AND SHE WOULD NOT FEEL COMFORTABLE . WITH THAT I EDUCATED HER ABOUT INSPIRE AND DISCUSSED PROS AND CONS . SHE DOES NOT WANT TO GO THAT ROUTE . THE BEST OPTION REMAINS TO LOSE WEIGHT, POSITION THERAPY, SLEEP IN LATERAL POSITION, AND TRY VARIOUS FULLFACE MASKS TO SEE WHICHEVER IS MORE COMFORTABLE AND KEEP USING. AGAIN I EXPLAINED THAT SHE CAN USE LORAZEPAM 0.5 MG BEFORE PUTTING ON THE MASK, ALSO TRY MAGNESIUM SULFATE 500 MG AT BEDTIME A SUPPLEMENT Coding Level of Care Code Est Pt Level 3 (06669) Diagnoses Obesity (BMI 30-39.9) E66.9 Retrognathia M26.19 YASMANY (obstructive sleep apnea) G47.33
[2025-05-06 09:58] VITALS: BP 104/68; PULSE 84; O2SAT 95; BMI 32.6
== END 2025-05-06 10:24 | disposition home or self-care (01) ==
LOC: HO.HPS 09:53
PROVIDERS: PCP Internal Medicine; Visit Provider Internal Medicine
DX: E66.9 Obesity, unspecified (principal); M26.19 Other specified anomalies of jaw-cranial base relationship; G47.33 Obstructive sleep apnea (adult) (pediatric)
CPT/HCPCS: 99213

== ENCOUNTER 2025-05-12 12:58 | Outpatient (AMB) | payer BC, SELFPAY ==
--- NOTE | 2025-05-12 12:59 | A.OFFVIS_ITS ---
Intake Visit Reasons: TV Medication follow up Allergies Penicillins Allergy (Intermediate, Verified 05/06/25 10:26) RASH HPI Comments Details: The patient is scheduled a telehealth visit for follow-up regarding hot flashes. Was started on citalopram 20 mg p.o. q.d. and has been on it since 04/14 and has not made a difference and the patient is requesting hormone replacement therapy [facility] Medical History Class 1 obesity with body mass index (BMI) of 33.0 to 33.9 in adult Establishing care with new doctor, encounter for Skin lesion History of mammogram (~12/16/24) Osteoarthritis Palpitations Reactive depression Nocturnal hypoxemia Somnolence, daytime Retrognathia Solitary thyroid nodule YASMANY (obstructive sleep apnea) Obesity (BMI 30-39.9) Sleep apnea Migraine Surgical History History of colonoscopy (~09/10/23) Hx of tonsillectomy Family History Mother Colon cancer Father Colon cancer Social History Alcohol intake: current Alcohol intake frequency: holidays/special occasions only Patient Tobacco Use Status: Never used Tobacco Current occupational status: employed Female Reproductive History Menstrual Age of Menarche: 14 Telehealth Telehealth Telehealth Platform: Rundown App Location of provider rendering services: practice address Location of patient: address on file Patient Identification confirmed using: Name, : Yes Telehealth method: video Patient verbally consented to treatment: Yes Patient verbally consented to billing insurance company: Yes Patient informed of any privacy concerns related to visit: Yes Minutes spent on Phone/Video with Pt.: 3 Assessment & Plan Assessment & Plan (1) Hot flashes: Code(s): R23.2 - [place] Category: Medical Plan: Discussed with the patient the options of treatment of hot flashes including hormonal replacement therapy, all the pros, cons, risks and benefits (benefits= prevention of hot flashes, atrophic vaginitis, osteoporosis, decrease colon ca risk; also discussed with the patient the risks of CT, Breast ca, DVT, PE, Strokes). In addition, discussed with the patient non hormonal treatment options for hot flashes treatment in surgical menopausal patient. Options discussed with the patient include the following: SSRI/SNRIs, and other options , difficulty has been demonstrated in multiple trials clinical response is more rapid (days) than typical response to SSRI for depression (weeks), they are equally effective in natural versus surgical menopause, they have similar modest benefit for hot flashes After discussion of the pros and cons of each , the patient decided to proceed with hormone replacement therapy. Premppro 0.3/1.5 mg daily send the patient's pharmacy will follow-up in 90 days if hot flashes are not controlled will increase the dose. All questions answered, the patient verbalized understanding I spent a total of 20 minutes reviewing the chart, talking to the patient via video and documenting in the medical record. Medications: New conj estrog-medroxyprogest titus 0.3-1.5 mg (Prempro) 1 tab PO DAILY 90 tabs 0RF 90 days Coding Level of Care Code Tele Est Pt Level 3 (45746) Diagnoses Hot flashes R23.2
== END 2025-05-12 13:27 | disposition home or self-care (01) ==
LOC: HO.HWS 12:58
PROVIDERS: PCP Internal Medicine; Visit Provider Obstetrics & Gynecology
DX: R23.2 Flushing (principal)
CPT/HCPCS: 99213

== ENCOUNTER 2025-05-25 20:15 | Emergency (ER) | payer OTHER, SELFPAY ==
--- NOTE | ~2025-05-25 | XR_ITS ---
CLINICAL HISTORY: trauma left 5th toe 3 view left foot Comparison: None provided Findings: Acute nondisplaced fracture of the base of the 5th proximal phalanx. Small calcaneal spurs. No erosions. Mild loss of joint space at the interphalangeal joints. No ankle effusion. No radiopaque foreign body. IMPRESSION: Acute nondisplaced fracture of the base of the 5th proximal phalanx. This document has been electronically signed by: Aislinn Bonilla MD on 05/25/2025 21:35:40
[2025-05-25 20:38] VITALS: BP 131/67; PULSE 81; RESP 16; TEMP 36.3; O2SAT 99; BMI 32.5
--- NOTE | 2025-05-25 20:58 | ED.GENADULT ---
HPI - General Adult General Chief complaint: Extremity Injury, Lower Stated complaint: ? lt foot fracture Time Seen by Provider: 05/25/25 20:50 Source: patient Limitations: no limitations History of Present Illness HPI narrative: 59-year-old female presents for evaluation of left 5th toe pain. Patient states at approximately 11:00 a.m. She was ambulating and accidentally struck her toe on a heavy wooden object. Patient is concern for possible fracture. It is painful, bruised and swollen. She has not tried any medication for this. Patient does have a history of previous fracture to the 4th toe. She has been able to ambulate. Related Data Home Medications ?Medication ?Instructions ?Recorded ?Confirmed naproxen sodium 220 mg tablet 220 mg PO BID PRN 01/06/25 05/06/25 (Aleve) Previous Rx's ?Medication ?Instructions ?Recorded lorazepam 0.5 mg tablet 0.5 mg PO BEDTIME PRN anxiety 2 11/19/24 weeks #14 tabs citalopram 20 mg tablet 20 mg PO DAILY #30 tabs 04/14/25 conj estrogen-medroxyprogesterone 1 tab PO DAILY 90 days #90 tabs 05/12/25 0.3 mg-1.5 mg tablet (Prempro) Allergies Allergy/AdvReac Type Severity Reaction Status Date / Time Penicillins Allergy Intermediate RASH Verified 05/25/25 20:40 Review of Systems Review of Systems: Yes all other systems are reviewed and are negative Musculoskeletal: Musculoskeletal: Denies deformity and Denies tingling Neurologic: Denies tingling PMFSH Past Medical History Medical History Class 1 obesity with body mass index (BMI) of 33.0 to 33.9 in adult Establishing care with new doctor, encounter for Skin lesion History of mammogram (~12/16/24) Osteoarthritis Palpitations Reactive depression Nocturnal hypoxemia Somnolence, daytime Retrognathia Solitary thyroid nodule YASMANY (obstructive sleep apnea) Obesity (BMI 30-39.9) Sleep apnea Migraine Surgical History History of colonoscopy (~09/10/23) Hx of tonsillectomy Family History Family History Mother Colon cancer Father Colon cancer Social History Social History Alcohol intake: current Alcohol intake frequency: holidays/special occasions only Patient Tobacco Use Status: Never used Tobacco Advance Directives: No Do you have a plan to hurt others: No Plan Current occupational status: employed Physical Exam ED Vital Signs: Vital Signs - 24 hr 05/25/25 20:38 Temperature 97.4 F Pulse Rate 81 Respiratory Rate 16 Blood Pressure 131/67 Pulse Oximetry 99 Oxygen Delivery Method Room Air BMI result Body Mass Index 32.5 Const General: cooperative, alert and awake Extrem Other: Left foot DP pulses are +1. Capillary refills less than 2 seconds. There is ecchymosis and edema surrounding the left 5th toe, particularly laterally aspect. There is no skin breakdown. The nail is intact. No subungual hematoma. There was no 5th metatarsal tenderness. No proximal tibial tenderness. Course Course Course Narrative: X-ray returned demonstrating positive fracture at the base of the left 5th phalanges. Nondisplaced. Reviewed images with the patient and her . She is agreeable to hard sole shoe. Patient reports that she has a home therapy clinician that she can follow up with. A orthopedic referral has also been provided. Patient is satisfied with Tylenol or ibuprofen for pain. She expresses understanding of all discharge instructions and has no further questions at this time. Medications Administered Discontinued Medications Generic Name Dose Route Start Last Admin Trade Name Freq PRN Reason Stop Dose Admin Acetaminophen 975 mg 05/25/25 21:03 05/25/25 21:18 Acetaminophen 325 Mg Tablet PO 05/25/25 21:04 975 mg ONCE ONE Administration Procedures Orthopedic Splinting/Casting Injury #1: Side: left Lower Extremity Injury Location: foot Lower Extremity Immobilizer: post-op shoe Medical Decision Making Medical Decision Making MDM Narrative: 59-year-old female with trauma to the left 5th toe. Check x-ray. Differential Diagnosis Differential Diagnoses: The differential diagnosis associated with the presentation includes Dislocation Fracture Contusion Sprain Discharge Plan Discharge Clinical Impression: Fracture of toe of left foot Qualifiers: Encounter type: initial encounter Toe: lesser toe Fracture type: closed Phalanx: proximal Fracture alignment: nondisplaced Qualified Code(s): S92.515A - Nondisplaced fracture of proximal phalanx of left lesser toe(s), initial encounter for closed fracture Patient Disposition: Home, Self-Care Instructions: Toe Fracture (ED) Additional Instructions: Rest. Ice. Elevate. Avoid strenuous activity. Hard sole shoe for comfort. Weightbear as tolerated. You may continue Tylenol as directed for pain. Follow up with your home therapy clinician. Call to schedule follow up appointment Alternatively, you may follow up with orthopedic referral Follow-up with your primary care provider. Call this week to schedule a follow-up appointment. Return to the emergency department if you have any worsening of symptoms, or any concerns. Get well soon! Prescriptions: No Action Prempro 0.3-1.5 mg tablet 1 tab PO DAILY 90 Days Qty: 90 0RF lorazepam 0.5 mg tablet 0.5 mg PO BEDTIME PRN (Reason: anxiety) 14 Days Qty: 14 2RF naproxen sodium [Aleve] 220 mg tablet 220 mg PO BID PRN citalopram 20 mg tablet 20 mg PO DAILY Qty: 30 0RF [place]: [facility] [place]Provider Group] Referral Note: Left 5th toe fracture Print Language: Bahraini
[2025-05-25 23:27] VITALS: BP 131/67; PULSE 81; RESP 16; TEMP 36.3; O2SAT 99
== END 2025-05-25 22:20 | disposition home or self-care (01) ==
PROVIDERS: Emergency Provider Emergency Medicine; PCP Internal Medicine
DX: S92.515A Nondisplaced fracture of proximal phalanx of left lesser toe(s), initial encounter for closed fracture (principal); W22.8XXA Striking against or struck by other objects, initial encounter; Y93.9 Activity, unspecified; Y92.9 Unspecified place or not applicable; Y99.9 Unspecified external cause status; M79.675 Pain in left toe(s)
CPT/HCPCS: 73630; 99283; 99284

== ENCOUNTER → 2025-05-25 21:04 | Outpatient (BNV) | payer OTHER, SELFPAY | PROVIDERS: PCP Internal Medicine; Visit Provider Radiology Diagnostic Radiology | DX: S62.647A Nondisplaced fracture of proximal phalanx of left little finger, initial encounter for closed fracture (principal) | CPT/HCPCS: 73630 ==

== ENCOUNTER 2025-09-09 08:59 | Outpatient (AMB) | payer OTHER, SELFPAY ==
[2025-09-09 09:11] VITALS: BP 134/63; PULSE 84; RESP 16; TEMP 36.6; O2SAT 97; BMI 32.7
--- NOTE | 2025-09-09 09:11 | A.OFFPC_ITS ---
Vital Signs 09/09/25 09:11 Height 5 ft 8.11 in Weight 216 lb BMI 32.7 BP 134/63 Blood Pressure Location Lt brachial Position Sitting Respiration 16 Pulse 84 Pulse Source Pulse Oximeter Temp 97.8 F Temp Source Temporal Artery Scan Pulse Oximetry (%) 97 Oxygen Delivery Method Room Air Intake Visit Reasons: physical Smooth Stucco Resurfacer Required: No Accompanied by: Self / Same As Patient Allergies Penicillins Allergy (Intermediate, Verified 09/09/25 09:26) RASH Medication List - Last Reconciled 09/09/25 by Ingrid Barkley PA-C No Known Home Meds Tobacco use date assessed: 09/09/25 Dental Screening Dental Screen Date: 09/09/25 Did you have a dental visit in the last 12 months?: Yes Did you have a dental problem in the last 6 months where you did not have access to dental care?: No Was dental information given to patient?: Patient has dentist HPI physical HPI Details The patient is a 59-year-old female presenting for an annual physical examination. She has a history of a previously diagnosed thyroid nodule, for which she has undergone two biopsies. The first biopsy was inconclusive, and the second was not cancerous, with recommendations to monitor it; she has a follow- up ultrasound scheduled for November. The patient reports a history of experiencing skipped heartbeats and has seen a supervisor alteration workroom in the past. She underwent a stress test, and although an ablation was mentioned as a possibility, it was not pursued as the condition was not bothersome or considered dangerous. Dermatologically, she notes a recurring spot on her nose that was evaluated years ago and found to be non-cancerous. A prior referral to dermatology for a skin lesion on her leg was made, but the patient did not attend the appointment. The patient reports a tendency to fall a lot, but clarifies these are accidental and not due to balance problems. Past medical history is significant for blood poisoning as a child, for which she received chelation therapy, resulting in speech difficulties. Previously ordered blood work for this visit has not yet been completed. 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 - Developmental History: Reports a histo ry of speech difficulties as a child secondary to blood poisoning. [facility] Medical History (Updated 09/09/25 @ 11:29 by Ingrid Barkley PA-C) Annual physical exam Heart murmur Class 1 obesity with body mass index (BMI) of 33.0 to 33.9 in adult Establishing care with new doctor, encounter for Skin lesion History of mammogram (~12/16/24) Osteoarthritis Palpitations Reactive depression Nocturnal hypoxemia Somnolence, daytime Retrognathia Solitary thyroid nodule YASMANY (obstructive sleep apnea) Obesity (BMI 30-39.9) Sleep apnea Migraine Surgical History History of colonoscopy (~09/10/23) Hx of tonsillectomy Family History Mother Colon cancer Father Colon cancer Social History Housing: House Alcohol intake: current Alcohol intake frequency: holidays/special occasions only Patient Tobacco Use Status: Never used Tobacco service: No Current occupational status: employed Cognitive needs: No Hearing needs: No Vision needs: Yes (rx glasses) Female Reproductive History Menstrual Age of Menarche: 14 Questionnaire PHQ-9 Over the last 2 weeks, how often have you been bothered by any of the following problems? 1. Little interest or pleasure in doing things: not at all 2. Feeling down, depressed, or hopeless: not at all 3. Trouble falling or staying asleep, or sleeping too much: not at all 4. Feeling tired or having little energy: not at all 5. Poor appetite or overeating: not at all 6. Feeling bad about yourself - or that you are a failure or have let yourself or your family down: not at all 7. Trouble concentrating on things, such as reading the newspaper or watching television: not at all 8. Moving or speaking so slowly that other people could have noticed. Or the opposite - being so fidgety or restless that you have been moving around a lot more than usual: not at all 9. Thoughts that you would be better off or of hurting yourself in some way: not at all Total score: 0 Depression Screening Interpretation: Negative Depression Screening Done: Yes 70218 - PHQ-9 Billing: Yes Source: Developed by Drs. Roberto Hernandez, Bibi BAureliano Villavicencio and colleagues, with an educational mark from [employer]. Thrive Questionnaire Date Thrive assessed: 09/09/25 I am a: Patient What is your living situation today?: I have a steady place to live Within the past 12 months, did the food you bought not last and you didn't have the money to get more?: Never true Within the past 12 months, did you worry whether your food would run out before you got money to buy more?: Never true Do you have trouble paying for medicines?: No Do you have trouble getting transportation to medical appointments?: No Do you have trouble paying your heating and electricity bill?: No Do you have trouble taking care of your child, family member or friend?: No Do you have trouble with day-to-day activities such as bathing, preparing meals, shopping, managing finances, etc.?: No Are you currently unemployed and looking for a job?: No Are you interested in more education?: No Please select the resources that you would like help with: None THRIVE Score: 0 AUDIT C Alcohol Use Questionnaire (AUDIT-C) 1. How often do you have a drink containing alcohol?: Monthly or less 2. How many drinks containing alcohol do you have on a typical day when you are drinking?: 1 or 2 3. How often do you have six or more drinks on one occasion?: Never Total Score: 1 Score Reviewed/Action Taken: No SHAMAR-7 AMB Questionnaire SHAMAR-7 Date SHAMAR - 7 assessed: 09/09/25 Feeling nervous, anxious, or on edge: 0 = Not at all Not being able to stop or control worryin = Not at all Worrying too much about different things: 0 = Not at all Trouble relaxin = Not at all Being so restless that it is hard to sit still: 0 = Not at all Becoming easily annoyed or irritable: 0 = Not at all Feeling afraid as if something awful might happen: 0 = Not at all Total SHAMAR-7 score (0-4 normal; 5-9 mild; 10-14 moderate; 15-21 severe): 0 Source: Developed by Drs. Roberto Hernandez, Aureliano Borjas and colleagues, with an educational mark from [employer]. SHAMAR-7 Assessment Billing SHAMAR-7 Assessment Tool: SHAMAR-7 Assessment 26535 Review of Systems Const Details: - Constitutional: Denies unintentional weight loss. - Cardiovascular: Reports a history of palpitations described as skipped beats. - Denies chest pain or shortness of breath with activity or when lying flat. - Gastrointestinal: Denies abdominal pain, black stools, or bloody stools. - Neurological: Reports a history of frequent accidental falls but denies associated balance problems. All systems reviewed & are unremarkable except as noted in HPI and below Physical exam (Primary Care) Vital Signs: Last Vital Signs Temp 97.8 F 09/09/25 09:11 Pulse 84 09/09/25 09:11 Resp 16 09/09/25 09:11 BP 134/63 09/09/25 09:11 Pulse Ox 97 09/09/25 09:11 Oxygen Delivery Method Room Air 09/09/25 09:11 Care Plan Goal for BP management: <140/90 at Goal BMI result Body Mass Index 32.7 Tobacco/Smoking Status: Tobacco use Status Tobacco use date assessed 09/09/25 09/09/25 09:19 Patient Tobacco Use Status Never used Tobacco 09/09/25 09:19 PHQ-9: PHQ-9 Score PHQ-9: Total score 0 09/09/25 09:27 Depression Screening Interpretation: Negative Thrive Assessment: Date of Thrive Assessment Date Thrive assessed 09/09/25 09/09/25 09:19 Const Other: Appearance: Alert. Oriented X3. No acute distress. Head: Normal external exam. Normocephalic. Atraumatic. Eyes: Pupils are equal, round, and reactive to light. Extraocular movements intact. Conjunctiva and sclera normal. Eyelids normal. Ears: External auditory canal normal. Tympanic membranes normal. Throat: Pharynx normal. Uvula midline. Moist mucous membranes. Neck: Normal inspection. Neck supple. Full range of motion. No adenopathy. No meningeal signs. No neck mass noted. Nodule on the left side, previously biopsied and monitored. Cardiovascular: Normal heart rate and rhythm. Heart sound normal.+ murmurs noted. Pulses normal throughout. History of heart murmur as a child, currently experiencing skipped beats. Ultrasound of the heart ordered for further evaluation. Respiratory: No respiratory distress. Painless inspiration. Breath sounds normal. No wheezes/rales/rhonchi noted. Chest nontender. No accessory muscle usage noted or decreased air movement noted. Abdomen: Soft and nontender. No distention noted. No organomegaly noted. Back: No costovertebral angle tenderness. Full range of motion noted. Skin: Skin warm and dry. Normal skin color. Normal skin turgor. No rashes/lesions/lacerations noted. Extremities: No lower extremity edema. Extremities exhibit normal range of motion. Neuro: Oriented X 3. No motor deficit. No sensory deficit. Reflexes normal. Frequent accidental falls noted, not due to balance issues. Office Procedures Flu Questionnaire Does the patient have a severe egg allergy?: No Does the patient have severe life threatening allergies?: No Does the patient have a fever or illness today?: No Has the patient ever had Guillain-Lewiston Syndrome?: No Has the patient ever had any past reaction to a flu shot?: No Immunizations Fluarix [id number] (PF) 45 mcg (15 mcg x 3)/0.5 mL IM syringe Performing Provider: Ingrid Barkley PA-C [facility] Documented (not given) by: JASMEET Perea on 09/09/25 09:20 Reason Not Given: Received Previously Results Reviewed Results Reviewed: No diagnostic results were reviewed during the visit as the patient has not yet completed the ordered lab work. Coding Level of Care Code Est Pt Level 4 (54530) Est Pt Prev Care 40-64y(87215) Diagnoses Annual physical exam Z00.00 Heart murmur R01.1 Skin lesion L98.9 Solitary thyroid nodule E04.1 Additional Codes SHAMAR-7 Assessment Billing - SHAMAR-7 Assessment Tool: SHAMAR-7 Assessment 60680 ([id number]) PHQ-9 - 89917 - PHQ-9 Billing: Yes ([id number]) Time Spent (min) 60 Assessment & Plan Assessment & Plan (1) Annual physical exam: Code(s): Z00.00 - Encounter for general adult medical examination without abnormal findings Category: Medical Plan: The patient presented for a routine annual physical. Comprehensive lab work, including a CBC, CMP, lipid panel, hemoglobin A1c, inflammatory markers, magnesium, vitamin B12, vitamin D, and thyroid function tests, was previously ordered and the patient will proceed to get it done as she is fasting today. Follow-up will occur via phone to discuss results, and the patient is to return in one year for her next annual exam unless any results are abnormal. (2) Heart murmur: Code(s): R01.1 - Cardiac murmur, unspecified Category: Medical Plan: A heart sound suggestive of a murmur or valvular stenosis was noted on auscultation. Although the patient denies associated symptoms such as chest pain or shortness of breath, an echocardiogram will be ordered for further evaluation. The patient was advised to go to the hospital if she develops chest pain or shortness of breath. (3) Skin lesion: Code(s): L98.9 - Disorder of the skin and subcutaneous tissue, unspecified Category: Medical Plan: The patient reports a recurring lesion on her nose and notes she did not follow up on a prior referral for a different lesion. A new referral will be placed to a electric container tester for evaluation of the facial lesion, and the patient will call to schedule the appointment herself. (4) Solitary thyroid nodule: Code(s): E04.1 - Nontoxic single thyroid nodule Category: Medical Plan: The patient has a known history of a thyroid nodule, which was previously biopsied and found to be benign. The patient is scheduled for a repeat ultrasound in November for routine monitoring, which is an appropriate plan. No new interventions are planned at this time. Plan Plan Patient was informed and verbally consented to the use of an ambient scribe for clinic note documentation during this visit. 1. Annual Physical Examination The patient presented for a routine annual physical. Comprehensive lab work, including a CBC, CMP, lipid panel, hemoglobin A1c, inflammatory markers, magnesium, vitamin B12, vitamin D, and thyroid function tests, was previously ordered and the patient will proceed to get it done as she is fasting today. Follow-up will occur via phone to discuss results, and the patient is to return in one year for her next annual exam unless any results are abnormal. 2. Heart Murmur A heart sound suggestive of a murmur or valvular stenosis was noted on auscultation. Although the patient denies associated symptoms such as chest pain or shortness of breath, an echocardiogram will be ordered for further evaluation. The patient was advised to go to the hospital if she develops chest pain or shortness of breath. 3. Recurrent Skin Lesion The patient reports a recurring lesion on her nose and notes she did not follow up on a prior referral for a different lesion. A new referral will be placed to a electric container tester for evaluation of the facial lesion, and the patient will call to schedule the appointment herself. 4. Thyroid Nodule The patient has a known history of a thyroid nodule, which was previously biopsied and found to be benign. The patient is scheduled for a repeat ultrasound in November for routine monitoring, which is an appropriate plan. No new interventions are planned at this time. I discussed my finding of a sound on heart auscultation, which could represent a murmur or stenosis. While she is asymptomatic and her blood pressure is not affected, I recommended an ultrasound of her heart for further evaluation, and she agreed. I instructed her to proceed with the previously ordered blood work, as she was fasting for the appointment. I will call her with any abnormal resul ts. A new referral to dermatology was provided for a recurring facial skin lesion, and the patient will schedule this herself. I provided return precautions, advising her to go to the hospital for any new chest pain or shortness of breath. We agreed on a one-year follow-up for her next annual physical exam, unless otherwise indicated by test results. Orders: Orders Influenza [id number] Immunization Today Z23 - Encounter for immunization CA echo transthoracic complete Today R00.2 - Palpitations, R01.1 - Cardiac murmur, unspecified UA CC w/rflx Micro + Cult Today Z00.00 - Encounter for general adult medical examination without abnormal findings Patient Instructions: - Please go to a local lab to get your blood work done. - You will need to fast for 8-10 hours beforehand, meaning nothing to eat or drink except water or black coffee with no cream or sugar. - An order has been placed for an ultrasound of your heart. - The hospital will call you within one month to schedule this test. - Please call the dermatology office to schedule an appointment for evaluation of your skin spot. - Go to the nearest hospital immediately if you experience any new chest pain or shortness of breath. - You are scheduled to follow up in one year for your next physical, unless you are contacted about abnormal test results.
--- OUTSIDE RECORDS SUMMARY | 2025-09-09 10:01 | XMS_ITS | Clinical Summary ---
Author Organization [facility] Address [address] [place] [id number] Phone Care Team Providers Care Skoog Patching Machine Operator Name Role Phone Roberto Chaudhary Primary Care Provider Social History Tobacco Use Types Packs/Day Years Used Date Smoking Tobacco: Never Assessed Education Answer Date Recorded Are you interested in more education? Not on hector e 09/10/2023 Are you concerned about learning? Not on file 09/10/2023 No 09/10/2023 No 09/10/2023 Digital Access Answer Date Recorded No 09/10/2023 No 09/10/2023 Reliable internet access at home? Not on file 09/10/2023 Device with a working camera? Not on file Comments Unknown Sex and Gender Information Value Date Recorded Sex Assigned at Not on file Legal Sex Female 1:26 PM EDT Gender Identity Not on file Sexual Orientation Not on file Plan of Treatment Not on file Medical Devices Not on file Insurance [facility] HMO [facility] HMO [facility] Address: [address] [address] Care Teams Skoog Patching Machine Operator Relationship Specialty Start Date End Date Roberto Chaudhary DO [address] [place] [id number] PCP - General Internal Medicine 09/10/23 Additional Source Comments The information contained in this document represents components of the legal health record. It is not the complete legal health record.[facility]
== END 2025-09-09 09:45 | disposition home or self-care (01) ==
LOC: HO.HMCSH 08:59
PROVIDERS: PCP Physician Assistant Medical; Visit Provider Physician Assistant Medical
DX: Z00.01 Encounter for general adult medical examination with abnormal findings (principal); R01.1 Cardiac murmur, unspecified; L98.9 Disorder of the skin and subcutaneous tissue, unspecified; E04.1 Nontoxic single thyroid nodule; Z23 Encounter for immunization

== ENCOUNTER → 2025-09-09 08:59 | Outpatient (BNVA) | payer OTHER, SELFPAY | PROVIDERS: PCP Physician Assistant Medical; Visit Provider Physician Assistant Medical | DX: Z00.00 Encounter for general adult medical examination without abnormal findings (principal); R29.6 Repeated falls; R01.1 Cardiac murmur, unspecified; L98.9 Disorder of the skin and subcutaneous tissue, unspecified; E04.1 Nontoxic single thyroid nodule; Z28.89 Immunization not carried out for other reason | CPT/HCPCS: 96127 ==

== ENCOUNTER 2025-09-15 06:06 | Outpatient (REF) | payer OTHER, SELFPAY ==
--- OUTSIDE RECORDS SUMMARY | 2025-09-15 06:09 | XMS_ITS | Clinical Summary ---
Author Organization [facility] Address [address] [place] [id number] Phone Care Team Providers Care Reservoir Engineering Consultant Name Role Phone Roberto Chaudhary Primary Care [...] file Medical Devices Not on file Insurance [facility] HMO [facility] HMO [facility] HMO [facility] Address: [address] [address] Care Teams Reservoir Engineering Consultant Relationship Specialty Start Date End Date Roberto Chaudhary DO [address] [place] [phone] PCP - General Internal Medicine 09/10/23 Additional Source Comments The information contained in this document represents components of the legal health record. It is not the complete legal health record.[facility]
[2025-09-15 10:16] LABS: MANUAL DIFF FLAG NO
[2025-09-15 10:37] LABS: Appearance Urine Clear; Glucose Urine UA Negative (Negative); PH 6.0 (5.0-9.0); Specific Gravity - Urine 1.015 (1.005-1.025)
[2025-09-15 10:39] LABS: Hematocrit 43.7 % (37.0-47.0); Hemoglobin 14.1 g/dl (12.0-16.0); Imm Gran Abs Auto 0.06 X10*3/uL (0.00-0.03); Imm Gran Pct Auto 0.7 % (0.0-0.4); Lymphocytes Absolute Auto 4.1 X10*3/uL (1.2-4.9); Mean Corpuscular HGB Conc 32.3 g/dl (31.0-35.0); Mean Corpuscular Hemoglobin 28.6 pg (27.0-33.0); Mean Corpuscular Volume 88.6 fL (80.0-98.0); NRBC Abs Auto 0.000 X10*3/uL (0.0-0.012); NRBC Pct Auto 0.0 /100WBC (0.0-0.2); Platelet Count 274 X10*3/uL (160-400); Red Blood Count 4.93 X10*6/uL (4.20-5.50); White Blood Count 8.8 X10*3/uL (4.8-10.8)
[2025-09-15 11:14] LABS: Alanine Aminotransferase 17 U/L (0-31); Albumin Level 4.5 g/dL (3.5-5.0); Alkaline Phosphatase 104 U/L (39-117); Anion Gap 11 (12-20); Aspartate Amino Transferase 24 U/L (5-31); Blood Urea Nitrogen 17 mg/dL (9-16); Calcium 9.4 mg/dL (8.4-10.2); Carbon Dioxide 30 mmol/L (22-29); Chloride 105 mmol/L (96-108); Cholesterol 224 mg/dL (<200); Estimated Glomerular Filt Rate > 60; HDL Cholesterol 60 mg/dL (>40); Magnesium 2.3 mg/dL (1.6-2.6); Potassium 4.8 mmol/L (3.3-5.1); Sodium 141 mmol/L (135-145); Total Protein 7.5 g/dL (6.5-8.0); Triglycerides 97 mg/dL (<150)
[2025-09-15 11:34] LABS: Folate 8.9 ng/mL (> or = 4.0); Vitamin B12 196 pg/mL (200-900)
== END 2025-09-15 06:07 | disposition home or self-care (01) ==
LOC: HO.HMGCLDS 06:06
PROVIDERS: PCP Physician Assistant Medical; Visit Provider Physician Assistant Medical
DX: Z00.00 Encounter for general adult medical examination without abnormal findings (principal); Z13.6 Encounter for screening for cardiovascular disorders; Z13.1 Encounter for screening for diabetes mellitus
CPT/HCPCS: 36415; 80053; 80061; 80076; 81003; 82248; 82306; 82607; 82746; 83036; 83735; 85025; 85652; 86140

== ENCOUNTER → 2025-11-03 12:50 | Outpatient (REF) | payer OTHER, SELFPAY ==
--- NOTE | 2025-11-03 12:52 | CA_ITS ---
Transthoracic Echocardiogram Patient (Last, First, Middle): Courtney Garcia L Gender: F Date of : 1965 Age: 60 Procedure Date: 11/03/2025 Procedure Type: Transthoracic Echocardiogram Location: OP Height: 172.72 cm Weight: 97.98 kg BSA: 2.11 m2 Heart Rate: 79 bpm BP: 122 / 78 mmHg Building Appraiser: TO Referring MD: Ingrid Barkley PA-C Heel Dipper: Te Mcdonough MD Symptoms: R01.1 - Cardiac murmur, unspecified Study Quality: Adequate ECG Rhythm: Sinus Conclusions: - 1. Normal LV ejection fraction of 60-65% 2. Mildly dilated left atrium 3. Mild aortic regurgitation 4. Normal RV systolic pressure 5. No gross pericardial effusion Findings Left Ventricle Normal left ventricular size, thickness, and systolic function. The visually estimated ejection fraction is between 60-65%. Spectral Doppler is indicative of a normal filling pattern. Right Ventricle Normal right ventricular cavity size and systolic function. Atria The left atrium is mildly dilated. there is suggestion of PFO. The right atrium is normal in size. Aortic Valve Normal aortic valve structure and function. There is no aortic valve stenosis. There is mild aortic valve regurgitation. Mitral Valve Normal mitral valve structure and function. There is trace mitral valve regurgitation. There is no mitral valve stenosis. Pulmonic Valve The pulmonic valve is likely normal. There is trace pulmonic valve regurgitation. Tricuspid Valve Normal tricuspid valve structure. There is trace tricuspid valve regurgitation. The right ventricular systolic pressure is normal. The right ventricular systolic pressure is 31 mmHg. Normal right atrial pressure. There is no evidence of pulmonary hypertension. Great Vessels All visible segments of the aorta are normal in size. There is no dilatation of the ascending aorta measuring 3.20 cm. The visualized portions of the pulmonary artery and branches are normal. Venous The inferior vena cava is normal in size and collapses greater than 50% with inspiration. Pericardium/Pleural There is no evidence of pericardial effusion. Prior Study Comparison No prior study available for comparison. Recommendations, Care & Conclusions Recommend contrast study to evaluate intracardiac shunting. Measurements 2D Linear Measurements IVSd: 0.94 0.6-0.9/0.6-1.0 cm LVIDd: 4.64 3.9-5.3/4.2-5.9 cm LVIDd Index: 2.20 2.4-3.2/2.2-3.1 cm/m2 LVIDs: 2.67 2.0-3.6 cm LVPWd: 0.87 0.7-1.1 cm LA Diam: 3.40 2.7-3.8/3.0-4.0 cm LAIDs Index: 1.61 1.5-2.3 cm/m2 LV Mass: 174.79 67-162/88-224 g LV Mass Index: 82.84 43-95/49-115 g/m2 LVOT Diam: 2.10 3.0+(-)1.3 cm 2D Systolic Function EF 4C: 65.30 >55% EF 2C: 59.20 >55% EF BiP: 62.40 >55% Mitral Valve MV Pk E: 0.56 MV PK A: 0.43 MV Decel Time: 159.00 E/A: 1.30 E'Lateral: 10.00 E'Medial: 6.96 E/E' Med: 8.10 E/E' Lat: 5.60 PHT: 47.00 MVA PHT: 4.68 Decel [place]: 3.52 Aortic Valve AoV Pk Suman: 1.75 AoV Mn Suman: 1.10 AoV VTI: 0.28 AoV Pk Grad: 12.00 Aov Mn Grad: 6.00 ARLENE Cont.VTI: 2.43 LVOT LVOT Pk Suman: 1.13 LVOT Mn Suman: 0.76 LVOT VTI: 0.20 LVOT Pk Grad: 5.00 LVOT Mn Grad: 3.00 LVOT Diam: 2.10 LVOT Area: 3.46 Diastolic Function MV Pk E: 0.56 MV Pk A: 0.43 E/A: 1.30 E'Medial: 6.96 E/E' Med: 8.10 E' Laterial: 10.00 E/E' Lat: 5.60 Right Ventricle TAPSE (mm): 23.20 TVS' Suman: 12.20 Tricuspid Valve TR Pk Suman: 2.40 TR Pk Grad: 23.00 RA Press: 8.00 RVSP: 31.00 Great Vessels Aorta Sinus of Valsalva: 3.19 2.0-3.5 cm Ao Asc: 3.20 2.1-3.4 cm Ao Arch: 2.80 Updated in Other Vendor System with Status of Final Te Mcdonough MD electronically signed on 11/04/2025 1:56:58 PM with status of Final
--- OUTSIDE RECORDS SUMMARY | 2025-11-03 13:54 | XMS_ITS | Clinical Summary ---
Author Organization [facility] Address [address] [place] [phone] Phone Care Team Providers Care Medicaid Billing Clerk Name Role Phone Roberto Chaudhary Primary Care [...] file Medical Devices Not on file Insurance [facility] HMO [facility] Care Teams Medicaid Billing Clerk Relationship Specialty Start Date End Date Roberto Chaudhary DO [address] [place] [id number] PCP - General Internal Medicine 09/10/23 Additional Source Comments The information contained in this document represents components of the legal health record. It is not the complete legal health record.[facility]
== END ==
LOC: HO.CARD 12:50
PROVIDERS: PCP Physician Assistant Medical; Visit Provider Physician Assistant Medical
DX: R00.2 Palpitations (principal); R01.1 Cardiac murmur, unspecified
CPT/HCPCS: 93306

== ENCOUNTER → 2025-11-03 12:52 | Outpatient (BNV) | payer OTHER, SELFPAY | PROVIDERS: PCP Physician Assistant Medical; Visit Provider Internal Medicine Cardiovascular Disease | DX: I51.7 Cardiomegaly (principal); I35.1 Nonrheumatic aortic (valve) insufficiency | CPT/HCPCS: 93306 ==